=== PATIENT | male | born 1955 | race Caucasian/White ===

== ENCOUNTER 2020-03-12 13:16 | Outpatient (REF) | payer MEDICARE, MEDICAID, SELFPAY ==
[2020-03-12 14:30] LABS: MANUAL DIFF FLAG NO
[2020-03-12 14:40] LABS: Basophils Percent Auto 0.5 % (0-2); Eosinophils Absolute Auto 0.2 X10*3/uL (0.0-0.4); Eosinophils Percent Auto 2.3 % (0-4); Hematocrit 40.2 % (42-52); Hemoglobin 13.9 g/dl (14.0-18.0); Imm Gran Abs Auto 0.02 X10*3/uL (0.00-0.03); Imm Gran Pct Auto 0.3 % (0.0-0.4); Lymphocytes Absolute Auto 2.6 X10*3/uL (1.2-4.9); Lymphocytes Percent Auto 39.5 % (20-40); Mean Corpuscular HGB Conc 34.6 g/dl (31.0-36.0); Mean Corpuscular Hemoglobin 31.2 pg (27.0-33.0); Mean Corpuscular Volume 90.1 fL (80-98); Mean Platelet Volume 10.3 fL (9.4-12.4); Monocytes Absolute Auto 0.4 X10*3/uL (0.1-1.2); Monocytes Percent Auto 6.4 % (2-11); Neutrophils Absolute Auto 3.3 X10*3/uL (2.0-8.3); Platelet Count 166 X10*3/uL (160-400); Red Blood Count 4.46 X10*6/uL (4.60-5.80); Red Cell Distribution Width 12.2 % (11.0-16.0); White Blood Count 6.5 X10*3/uL (4.8-10.8)
[2020-03-12 14:47] LABS: Glucose Urine UA >=1000 MG/DL (NEG); Leukocyte Esterase Urine NEG (NEG); Nitrite Urine NEG (NEG); PH 5.5 (5.0-8.0); Specific Gravity - Urine >= 1.030 (1.005-1.025); Urine Blood 3+ (NEG); Urine Ketones NEG (NEG); Urine Protein NEG (NEG-TRACE)
[2020-03-12 14:58] LABS: Estimated Average Glucose 186 mg/dL; Hemoglobin A1c % 8.1 %
[2020-03-12 15:07] LABS: Appearance Urine HAZY; Color Urine YELLOW
[2020-03-12 15:10] LABS: Alanine Aminotransferase 17 U/L (0-40); Albumin Level 4.3 g/dL (3.5-5.0); Alkaline Phosphatase 71 U/L (39-117); Anion Gap 13 (12-20); Aspartate Amino Transferase 16 U/L (5-37); Bilirubin Total 0.3 mg/dL (0.0-1.0); Blood Urea Nitrogen 13 mg/dL (9-16); Calcium 8.4 mg/dL (8.4-10.2); Carbon Dioxide 24 mmol/L (22-29); Chloride 104 mmol/L (96-108); Estimated Glomerular Filt Rate > 60; Glucose Random 229 mg/dL (60-115); Potassium 4.1 mmol/l (3.3-5.1); Sodium 137 mmol/L (135-145)
[2020-03-12 15:13] LABS: Bacteria Urine 1+ /LPF; Mucus Urine 1+ /LPF; RBC Urine 30-49 /HPF (0); Squamous Epithelial Cell Urine 1+ /LPF
[2020-03-12 15:41] LABS: Microalbum/Creatinine Ratio Ur 29.2 ug/mg cr
== END 2020-03-12 13:17 | disposition home or self-care (01) ==
LOC: HO.LAB 13:16
PROVIDERS: PCP Internal Medicine; Visit Provider Internal Medicine
DX: E11.9 Type 2 diabetes mellitus without complications (principal); R31.9 Hematuria, unspecified; N20.0 Calculus of kidney
CPT/HCPCS: 36415; 80053; 81001; 82043; 83036; 85025

== ENCOUNTER 2020-06-16 08:32 | Outpatient (REF) | payer MEDICARE, MEDICAID, SELFPAY ==
[2020-06-16 09:29] LABS: Estimated Average Glucose 189 mg/dL; Hemoglobin A1c % 8.2 %
[2020-06-16 09:48] LABS: Alanine Aminotransferase 21 U/L (0-40); Albumin Level 4.3 g/dL (3.5-5.0); Alkaline Phosphatase 71 U/L (39-117); Anion Gap 13 (12-20); Bilirubin Total 0.6 mg/dL (0.0-1.0); Blood Urea Nitrogen 19 mg/dL (9-16); Calcium 9.2 mg/dL (8.4-10.2); Carbon Dioxide 28 mmol/L (22-29); Chloride 102 mmol/L (96-108); Estimated Glomerular Filt Rate > 60; Glucose Random 197 mg/dL (60-115); Potassium 5.1 mmol/l (3.3-5.1); Sodium 138 mmol/L (135-145); Total Protein 7.3 g/dL (6.5-8.0)
[2020-06-16 09:49] LABS: Aspartate Amino Transferase 17 U/L (5-37)
[2020-06-16 09:52] LABS: Creatinine Urine 96.48 mg/dL; Microalbum/Creatinine Ratio Ur 36.2 ug/mg cr
== END 2020-06-16 08:33 | disposition home or self-care (01) ==
LOC: HO.LAB 08:32
PROVIDERS: PCP Internal Medicine; Visit Provider Internal Medicine
DX: E11.9 Type 2 diabetes mellitus without complications (principal); E78.00 Pure hypercholesterolemia, unspecified
CPT/HCPCS: 36415; 80053; 82043; 83036

== ENCOUNTER 2020-06-24 | Outpatient (REF) | payer MEDICARE, MEDICAID, SELFPAY | END 2020-06-24 00:01 | disposition home or self-care (01) | LOC: HO.VC | PROVIDERS: Visit Provider Internal Medicine | DX: Z23 Encounter for immunization (principal) | CPT/HCPCS: 0011A ==

== ENCOUNTER 2020-06-30 10:05 | Day surgery (SDC) | payer MEDICARE, MEDICAID, SELFPAY ==
[2020-06-24 13:05] VITALS: BMI 32.6
--- NOTE | 2020-06-29 12:40 | P.CONAN_ITS ---
Documented by User: Cristy Sen 06/29/20 12:41 HPI - Anesthesia Eval Consult details Narrative: 65yo M for Colonoscopy suboxone [facility] Past Medical History Medical History Diabetes Hx of opioid abuse Hx of renal calculi Surgical History Surgical History Hx of cystoscopy Hx of hernia repair Hx of lithotripsy Hx of total knee replacement Social History Social History Smoking Status: Former smoker Substance Use Type: Opiates Substance Use Type Other:: taking suboxone Advance Directives Information Provided: No Meds Allergies Allergy/AdvReac Type Severity Reaction Status Date / Time No Known Allergies Allergy Verified 06/24/20 13:12 [No Known Allergies*] Home Medications Medication Instructions Recorded Confirmed Type buprenorphine-naloxone [Suboxone] 2 strip SUBLINGUAL DAILY 06/24/20 06/24/20 History fluoxetine 2 cap PO DAILY 06/24/20 06/24/20 History metformin 1 tab PO DAILY 06/24/20 06/24/20 History mirtazapine 1 tab PO BEDTIME 06/24/20 06/24/20 History Exam Exam Date and Time: June 29, 2020 1240 Height,Weight and Vital Signs: Height 5 ft 11 in Weight 106.141 kg Pertinent Lab Results Pertinent Lab Results: Laboratory Tests 03/12/20 06/16/20 13:39 08:42 WBC 6.5 Hgb 13.9 L Hct 40.2 L Plt Count 166 Sodium 138 Potassium 5.1 D Chloride 102 Carbon Dioxide 28 BUN 19 H Creatinine 0.85 Assessment and Plan Assessment Anesthesia Assessment: Chart Reviewed Documented by User: Doris Barron 06/30/20 11:08 [facility] Past Medical History Medical History Diabetes Hx of opioid abuse Hx of renal calculi Family History Family history of problems with anesthesia: No Surgical History Surgical History Hx of cystoscopy Hx of hernia repair Hx of lithotripsy Hx of total knee replacement History of Problems with Anesthesia: No Social History Social History Smoking Status: Former smoker Substance Use Type: Opiates Substance Use Type Other:: taking suboxone Advance Directives Information Provided: No Meds Allergies Allergy/AdvReac Type Severity Reaction Status Date / Time No Known Allergies Allergy Verified 06/24/20 13:12 [No Known Allergies*] Home Medications Medication Instructions Recorded Confirmed Type buprenorphine-naloxone [Suboxone] 2 strip SUBLINGUAL DAILY 06/24/20 06/24/20 History fluoxetine 2 cap PO DAILY 06/24/20 06/24/20 History metformin 1 tab PO DAILY 06/24/20 06/24/20 History mirtazapine 1 tab PO BEDTIME 06/24/20 06/24/20 History Exam Height,Weight and Vital Signs: Vital Signs Temp Pulse Resp BP Pulse Ox 06/30/20 10:34 79 16 136/99 H 06/30/20 10:21 96.6 F L 91 16 171/111 H 95 Pertinent Lab Results Pertinent Lab Results: Lab Results 06/30/20 Range/Units 10:24 POC Glucose 178 H (60-115) mg/dL Airway Mallampati Class: II TM Dist: >3cm Neck ROM: Full Loose/Missing/Broken Teeth: Yes (Many missing ?broken) Heart: RRR Lungs: CTAB Assessment and Plan Assessment Anesthesia Assessment: Anesthesia Plan Discussed and Chart Reviewed Final Anesthetic Review NPO: Yes ASA Class: II Final Preanesthetic Review: No Changes in Pt Med Stat, Meds/Allgs Chart Reviewed, Consent Obtained/Reviewed and Anes Risks/Benef Reviewed Patient Risk: Intermediate Procedure Risk: Low Assessment/Block/Sedation in SS: Assess/Block/Sedation-SS Anesthetic Plan Anesthetic Plan: MAC: Disposition: Standard PACU
[2020-06-30 10:21] VITALS: BP 171/111; PULSE 91; RESP 16; TEMP 35.9; O2SAT 95
[2020-06-30 10:29] LABS: Glucose, Whole Blood 178 mg/dL (60-115)
[2020-06-30 10:34] VITALS: BP 136/99; PULSE 79; RESP 16
[2020-06-30] MEDS: Lactated Ringers 1,000 ML 100 ML IVCONT (10:44)
--- NOTE | 2020-06-30 11:43 | MHC.SHP ---
Pre-Procedural Eval Section A The patient is an INPATIENT: No Changes since office visit: No Cold of Flu in the past 2 weeks, No New Medical Problems, No Changes in Medication and No Patient answered all questions The History & Physical has been completed within 30 days and I have reviewed it.: Yes Section B Chief Complaint: screening Allergies: Allergies Allergy/AdvReac Type Severity Reaction Status Date / Time No Known Allergies Allergy Verified 06/24/20 13:12 [No Known Allergies*] Plan I have reviewed the history and physical and performed a pertinent physical examination on my patient. No changes have occurred unless specified.
[2020-06-30 12:15] VITALS: BP 103/60; PULSE 76; RESP 12; TEMP 36.1; O2SAT 96
--- NOTE | 2020-06-30 12:16 | PM.OP ---
Brief Operative Note Date of Service: 06/30/20 Pre-op diagnosis: screening Post-op diagnosis: same (diverticulosis) Procedure: colonoscopy Surgeon: Mani Iglesias Anesthesia: MAC Estimated blood loss (mL): 0 Pathology: none sent Condition: stable Disposition: PACU
[2020-06-30 12:30] VITALS: BP 109/81; PULSE 74; RESP 18; O2SAT 96
--- NOTE | 2020-06-30 13:14 | HO.POSTANES ---
Post Anesthesia Evaluation Post Anesthesia Evaluation Vital Signs: Vital Signs Temp Pulse Resp BP Pulse Ox 06/30/20 12:30 74 18 109/81 96 06/30/20 12:15 97.0 F 76 12 103/60 96 06/30/20 10:34 79 16 136/99 H 06/30/20 10:21 96.6 F L 91 16 171/111 H 95 Anesthesia: Monitored Mental Status: Awake Pain Control: Satisfactory Nausea/Vomiting: None Hydration: Adequate Anesthesia-Related Issues: No Anes. Related Issues
--- NOTE | 2020-06-30 20:10 | OP_ITS ---
SURGEON: Mani Iglesias MD INDICATIONS: Colon cancer screening. PREOPERATIVE DIAGNOSIS: POSTOPERATIVE DIAGNOSIS: PROCEDURE PERFORMED: Colonoscopy to the terminal ileum. ESTIMATED BLOOD LOSS: COMPLICATIONS: ANESTHESIA: ASSISTANTS: SPECIMENS: MEDICATIONS: Monitored anesthesia care. DESCRIPTION OF PROCEDURE: History and physical performed. The risks and benefits of the procedure were explained to the patient. Informed consent was obtained. The patient was placed in the left lateral decubitus position. A digital rectal exam was performed and was found to be normal. The Olympus pediatric video colonoscope was introduced into the rectum and advanced to the cecum without difficulty. The cecum was identified by transillumination, palpation, and identification of the ileocecal valve. Examination was performed. The scope was removed. He tolerated the procedure well, returned to recovery area in stable condition. FINDINGS: The terminal ileum was normal. The visualized colonic mucosa was normal. There was some liquid stool and formed stool limiting the sensitivity examination for detection of small polyps, this was washed and suctioned as best possible. No polyps were identified. There was moderate diverticulosis of the sigmoid with scattered diverticulosis throughout the remainder of the colon. Retroflexed examination showed internal hemorrhoids. IMPRESSION: Diverticulosis. RECOMMENDATION: 1. Follow up as needed. 2. Repeat colonoscopy is recommended in 10 years for average risk individuals. MD MARLENE Rodriguez/BOWEN / [id number]
== END 2020-06-30 12:45 | disposition home or self-care (01) ==
PROVIDERS: PCP Internal Medicine; Visit Provider Internal Medicine Gastroenterology
PROC: 0DJD8ZZ Inspection of Lower Intestinal Tract, Via Natural or Artificial Opening Endoscopic (ICD-10-PCS; CPT 45378; principal; 2020-06-30 11:30)
DX: Z12.11 Encounter for screening for malignant neoplasm of colon (principal); K57.30 Diverticulosis of large intestine without perforation or abscess without bleeding; K64.8 Other hemorrhoids; E11.9 Type 2 diabetes mellitus without complications; Z79.84 Long term (current) use of oral hypoglycemic drugs
CPT/HCPCS: G0121; 82947

== ENCOUNTER 2020-07-22 | Outpatient (REF) | payer MEDICARE, MEDICAID, SELFPAY | END 2020-07-22 00:01 | disposition home or self-care (01) | LOC: HO.VC | PROVIDERS: Visit Provider Internal Medicine | DX: Z23 Encounter for immunization (principal) | CPT/HCPCS: 0012A ==

== ENCOUNTER 2020-09-21 15:30 | Outpatient (REF) | payer MEDICARE, MEDICAID, SELFPAY ==
[2020-09-21 16:19] LABS: MANUAL DIFF FLAG NO
[2020-09-21 16:42] LABS: Creatinine Urine 58.09 mg/dL; Microalbum/Creatinine Ratio Ur 24.1 ug/mg cr
[2020-09-21 16:56] LABS: Basophils Percent Auto 0.6 % (0-2); Eosinophils Absolute Auto 0.2 X10*3/uL (0.0-0.4); Eosinophils Percent Auto 2.1 % (0-4); Hemoglobin 14.9 g/dl (14.0-18.0); Imm Gran Abs Auto 0.01 X10*3/uL (0.00-0.03); Imm Gran Pct Auto 0.1 % (0.0-0.4); Lymphocytes Absolute Auto 2.7 X10*3/uL (1.2-4.9); Lymphocytes Percent Auto 38.3 % (20-40); Mean Corpuscular HGB Conc 33.9 g/dl (31.0-36.0); Mean Corpuscular Hemoglobin 30.6 pg (27.0-33.0); Mean Corpuscular Volume 90.3 fL (80-98); Mean Platelet Volume 10.4 fL (9.4-12.4); Monocytes Absolute Auto 0.4 X10*3/uL (0.1-1.2); Monocytes Percent Auto 5.2 % (2-11); Neutrophils Absolute Auto 3.8 X10*3/uL (2.0-8.3); Neutrophils Percent Auto 53.7 % (45-73); Platelet Count 151 X10*3/uL (160-400); Red Blood Count 4.87 X10*6/uL (4.60-5.80); Red Cell Distribution Width 12.5 % (11.0-16.0)
[2020-09-21 17:01] LABS: Glucose Random 338 mg/dL (60-115)
[2020-09-21 17:05] LABS: Alanine Aminotransferase 25 U/L (0-40); Albumin Level 4.6 g/dL (3.5-5.0); Alkaline Phosphatase 90 U/L (39-117); Anion Gap 14 (12-20); Aspartate Amino Transferase 20 U/L (5-37); Bilirubin Total 0.6 mg/dL (0.0-1.0); Blood Urea Nitrogen 16 mg/dL (9-16); C Reactive Protein 0.26 mg/dL (< or = 0.50); Calcium 9.7 mg/dL (8.4-10.2); Carbon Dioxide 29 mmol/L (22-29); Chloride 100 mmol/L (96-108); Estimated Glomerular Filt Rate > 60; Potassium 5.2 mmol/L (3.3-5.1); Sodium 138 mmol/L (135-145); Total Protein 7.5 g/dL (6.5-8.0)
[2020-09-21 17:08] LABS: Free T4 (Free Thyroxine) 0.97 ng/dL (0.71-1.85); Thyroid Stimulating Hormone 0.66 uIU/mL (0.32-4.0)
[2020-09-21 17:14] LABS: Vitamin B12 451 pg/mL (200-900)
[2020-09-22 04:56] LABS: Estimated Average Glucose 278 mg/dL; Hemoglobin A1c % 11.3 %
== END 2020-09-21 15:31 | disposition home or self-care (01) ==
LOC: HO.LAB 15:30
PROVIDERS: PCP Internal Medicine; Visit Provider Internal Medicine
DX: R53.83 Other fatigue (principal); E11.9 Type 2 diabetes mellitus without complications; E78.00 Pure hypercholesterolemia, unspecified
CPT/HCPCS: 36415; 80053; 82043; 82607; 83036; 84439; 84443; 85025; 86140

== ENCOUNTER → 2020-09-25 08:11 | Outpatient (REF) | payer MEDICARE, MEDICAID, SELFPAY ==
--- NOTE | ~2020-09-25 | NM_ITS ---
Exercise Myocardial perfusion study Indication: Abnormal EKG to evaluate for myocardial ischemia Technique: The patient was brought in for an exercise perfusion study on 09/25/2020. Patient performed exercise as per James protocol and was injected 30 mCi of sestamibi was given intravenously one target HR was achieved. Images were obtained using the SPECT gamma camera interlaced with the gating device. Images were obtained in supine position. Resting perfusion study was performed on 09/28/2020. Patient was administered 30 mCi of sestamibi intravenously at rest. Images were then obtained in supine position. Images obtained with and without CT attenuation. Total DLP 114 mGy-cm. Images were processed with the software and compared side to side in short axis, horizontal long axis and vertical long axis views. Findings: The stress perfusion study showed attenuated corrected images show absent uptake in the apex and moderately reduced uptake in the septum and severely reduced uptake in the distal anterior wall of the LV myocardium. Non attenuated images show severely reduced uptake in the distal anterior, septum, absent uptake in the apex and moderately reduced uptake in the inferior wall of the LV myocardium.. The gated study shows low normal LV systolic function with calculated LVEF of 54%. LV cavity is mildly dilated in size. The gated study shows reduced apical wall thickening and contraction of all segments. There is no transient ischemic dilation. Resting study shows attenuated corrected images show improved uptake in the distal anterior and partially improved uptake in the apex and septum of the LV myocardium.. Gating at rest reveals apical wall motion with ejection fraction at 51%. The findings are consistent with partially reversible septal, apical and distal anterior wall defect suggestive of ischemia possibly severe ischemia.. NM/NM elizabeth perf SPECT rest & str Impression: 1. Ischemia in the mid to distal LAD territory possibly severe 2. Gated LVEF is 54% 3. Transient ischemic dilatation not present Stress EKG is positive for ischemia
--- NOTE | 2020-09-25 08:00 | CA_ITS ---
Acquisition Time: 2020-09-25 08:33:02 Total Exercise Time: 00:07:38 Test Indications: Fatigue Medications: Protocol: MAGDA Max HR: 139 BPM 89% of Pred: 155 BPM Max BP: 164/078 mmHG Max Work Load: 9.5 METS PT EXERCISED ON STD MAGDA PROTOCOL FOR 7:38 INTO STAGE 3. TEST STOPPED FOR FATIGUE AND SOB. MAX HR 139-88%MAX. NO CP. SIGNIFICANT SOB AT PEAK EXERCISE. 2MM ST DEP IN INF/LAT LEADS.CLINICALLY AND ELEC POS. AWAIT SCAN RESULTS. Referred By: Quinten Bullock Overread By: JO-ANN BULLOCK MD
== END ==
LOC: HO.CARD 08:11
PROVIDERS: PCP Internal Medicine; Visit Provider Internal Medicine
DX: R94.31 Abnormal electrocardiogram [ECG] [EKG] (principal); E11.9 Type 2 diabetes mellitus without complications; R53.83 Other fatigue
CPT/HCPCS: 78452; 93017; A9500

== ENCOUNTER 2020-09-30 08:30 | Outpatient (REF) | payer MEDICARE, SELFPAY ==
[2020-09-30 11:08] LABS: INTERNATIONAL NORM RATIO 0.9 (0.9-1.1); Prothrombin Time 10.9 SEC (10.8-13.0)
[2020-09-30 11:12] LABS: Hematocrit 41.1 % (42-52); Hemoglobin 13.9 g/dl (14.0-18.0); Mean Corpuscular HGB Conc 33.8 g/dl (31.0-36.0); Mean Corpuscular Hemoglobin 30.9 pg (27.0-33.0); Mean Corpuscular Volume 91.3 fL (80-98); Mean Platelet Volume 10.4 fL (9.4-12.4); Platelet Count 146 X10*3/uL (160-400); Red Cell Distribution Width 12.8 % (11.0-16.0); White Blood Count 5.6 X10*3/uL (4.8-10.8)
[2020-09-30 11:13] LABS: Anion Gap 13 (12-20); Blood Urea Nitrogen 13 mg/dL (9-16); Calcium 9.5 mg/dL (8.4-10.2); Carbon Dioxide 27 mmol/L (22-29); Chloride 104 mmol/L (96-108); Estimated Glomerular Filt Rate > 60; Glucose Random 317 mg/dL (60-115); Potassium 4.4 mmol/L (3.3-5.1); Sodium 140 mmol/L (135-145)
== END 2020-09-30 08:31 | disposition home or self-care (01) ==
LOC: HO.LAB 08:30
PROVIDERS: PCP Internal Medicine; Referring Provider Internal Medicine; Visit Provider Internal Medicine Cardiovascular Disease
DX: R06.02 Shortness of breath (principal); R94.39 Abnormal result of other cardiovascular function study
CPT/HCPCS: 36415; 80048; 85027; 85610; 93005; 99202

== ENCOUNTER → 2020-10-01 11:31 | Outpatient (REF) | payer MEDICARE, MEDICAID, SELFPAY ==
--- NOTE | 2020-10-01 11:37 | CA_ITS ---
Transthoracic Echocardiogram Patient (Last, First, Middle): Abhay Nelson D Gender: Male Date of : 1955 Age: 65 Procedure Date: 10/01/2020 Procedure Type: Transthoracic Echocardiogram Location: OP Height: 190.5 cm Weight: 102.06 kg BSA: 2.31 m2 Heart Rate: bpm BP: 132 / 80 mmHg Instrumentation Fitter: WILBUR Referring MD: Jassi Warren MD Acid Tester: Jassi Warren MD Symptoms: R06.02 - Shortness of breath Study Quality: Technically Difficult ECG Rhythm: Sinus Conclusions: - 1. Normal LV systolic function with mild LVH with impaired relaxation filling pattern with possible anteroseptal hypokinesis 2. Normal cardiac valvular Doppler 3. No gross pericardial effusion Findings Left Ventricle Normal left ventricular size and systolic function. There is mildly increased left ventricular wall thickness. The visually estimated ejection fraction is between 55-60%. There is no dynamic left ventricular outflow tract obstruction. Spectral Doppler is indicative of an impaired relaxation filling pattern. E/E prime ratio is between 8 and 15 consistent with indeterminate filling pressures. There is mild septal asymmetric hypertrophy. Wall Motion Rest Echo Findings The apical septum and mid anteroseptal segments are hypokinetic. All other scored wall segments showed normal motion. Right Ventricle Normal right ventricular cavity size and systolic function. Atria Both atria are normal in size. There is no evidence of interatrial shunt. Aortic Valve Normal aortic valve structure and function. There is no aortic valve stenosis. There is no aortic valve regurgitation. Mitral Valve Normal mitral valve structure and function. There is trace mitral valve regurgitation. There is no mitral valve stenosis. Pulmonic Valve The pulmonic valve was not well visualized. Tricuspid Valve The tricuspid valve was not well visualized. The right ventricular systolic pressure is not calculated. Great Vessels All visible segments of the aorta are normal in size. The pulmonary artery was not well visualized. Venous The inferior vena cava was not well visualized. Pericardium/Pleural There is no evidence of pericardial effusion. Prior Study Comparison No prior study available for comparison. Measurements M-Mode Liner Measurements Normals - Women/Men AOV Cusps: 2.30 1.5-2.6 cm/m2 2D Linear Measurements IVSd: 1.48 0.6-0.9/0.6-1.0 cm LVIDd: 4.08 3.9-5.3/4.2-5.9 cm LVIDd Index: 0.29 2.4-3.2/2.2-3.1 cm/m2 LVIDs: 2.85 2.0-3.6 cm LVPWd: 1.17 0.7-1.1 cm Ao Root: 3.40 2.1-3.5 cm LA Diam: 4.00 2.7-3.8/3.0-4.0 cm LAIDs Index: 0.28 1.5-2.3 cm/m2 LV Mass: 246.38 67-162/88-224 g LV Mass Index: 17.47 43-95/49-115 g/m2 LVOT Diam: 2.30 3.0+(-)1.3 cm 2D Systolic Function EF 4C: 58.20 >55% EF 2C: 34.70 >55% Mitral Valve MV Pk E: 0.68 MV PK A: 1.08 MV Decel Time: 324.00 E/A: 0.60 E'Lateral: 10.40 E'Medial: 5.11 E/E' Med: 13.30 E/E' Lat: 6.50 PHT: 95.00 MVA PHT: 2.32 Decel O'Brien: 2.10 Aortic Valve AoV Pk Tulio: 1.36 AoV Mn Tulio: 0.95 AoV VTI: 0.30 AoV Pk Grad: 7.00 Aov Mn Grad: 4.00 SAMIRA Cont.VTI: 2.61 LVOT LVOT Pk Tulio: 0.80 LVOT Mn Tulio: 0.62 LVOT VTI: 0.19 LVOT Pk Grad: 3.00 LVOT Mn Grad: 2.00 LVOT Diam: 2.30 LVOT Area: 4.15 Diastolic Function MV Pk E: 0.68 MV Pk A: 1.08 E/A: 0.60 E'Medial: 5.11 E/E' Med: 13.30 E' Laterial: 10.40 E/E' Lat: 6.50 Tricuspid Valve TR Pk Tulio: 2.62 TR Pk Grad: 27.00 Great Vessels Aorta Ao Root-2D: 3.40 2.0-3.7 cm Ao Asc: 3.60 2.1-3.4 cm Ao Arch: 3.10 Pulmonary Valve PV Pk Tulio: 1.44 Peak PV Grad: 8.00 Updated in Other Vendor System with Status of Final Jassi Warren MD electronically signed on 10/02/2020 3:38:17 PM with status of Final
== END ==
LOC: HO.CARD 11:31
PROVIDERS: Visit Provider Internal Medicine
DX: Z13.89 Encounter for screening for other disorder (principal)
CPT/HCPCS: 93306

== ENCOUNTER 2020-10-01 12:17 | Outpatient (REF) | payer MEDICARE, SELFPAY ==
[2020-10-01 12:43] LABS: COVID-19 Test Negative (Negative)
== END 2020-10-01 12:18 | disposition home or self-care (01) ==
LOC: HO.LAB 12:17
PROVIDERS: Visit Provider Internal Medicine
DX: Z20.822 Contact with and (suspected) exposure to COVID-19 (principal)
CPT/HCPCS: 36415; 87635; 93306; C9803

== ENCOUNTER → 2020-10-13 14:47 | Outpatient (BNVA) | payer MEDICARE, MEDICAID, SELFPAY | PROVIDERS: PCP Internal Medicine; Referring Provider Internal Medicine; Visit Provider Internal Medicine Cardiovascular Disease | DX: I25.10 Atherosclerotic heart disease of native coronary artery without angina pectoris (principal); E78.5 Hyperlipidemia, unspecified | CPT/HCPCS: 99212 ==

== ENCOUNTER 2020-10-20 11:50 | Outpatient (REF) | payer MEDICARE, MEDICAID, SELFPAY ==
[2020-10-20 13:20] LABS: Basophils Percent Auto 0.5 % (0-2); Eosinophils Absolute Auto 0.2 X10*3/uL (0.0-0.4); Eosinophils Percent Auto 3.1 % (0-4); Hematocrit 41.8 % (42-52); Hemoglobin 14.2 g/dl (14.0-18.0); Imm Gran Abs Auto 0.02 X10*3/uL (0.00-0.03); Imm Gran Pct Auto 0.3 % (0.0-0.4); Lymphocytes Absolute Auto 2.1 X10*3/uL (1.2-4.9); Lymphocytes Percent Auto 34.1 % (20-40); MANUAL DIFF FLAG NO; Mean Corpuscular Hemoglobin 31.1 pg (27.0-33.0); Mean Corpuscular Volume 91.7 fL (80-98); Mean Platelet Volume 10.2 fL (9.4-12.4); Monocytes Absolute Auto 0.4 X10*3/uL (0.1-1.2); Neutrophils Absolute Auto 3.4 X10*3/uL (2.0-8.3); Platelet Count 149 X10*3/uL (160-400); Red Blood Count 4.56 X10*6/uL (4.60-5.80); Red Cell Distribution Width 12.6 % (11.0-16.0); White Blood Count 6.2 X10*3/uL (4.8-10.8)
[2020-10-20 13:49] LABS: Estimated Average Glucose 246 mg/dL; Hemoglobin A1c % 10.2 %
[2020-10-20 14:02] LABS: Alanine Aminotransferase 18 U/L (0-40); Albumin Level 4.3 g/dL (3.5-5.0); Alkaline Phosphatase 72 U/L (39-117); Anion Gap 12 (12-20); Aspartate Amino Transferase 16 U/L (5-37); Bilirubin Total 0.6 mg/dL (0.0-1.0); Blood Urea Nitrogen 17 mg/dL (9-16); Calcium 9.6 mg/dL (8.4-10.2); Carbon Dioxide 29 mmol/L (22-29); Chloride 104 mmol/L (96-108); Estimated Glomerular Filt Rate > 60; Glucose Random 191 mg/dL (60-115); Potassium 5.3 mmol/L (3.3-5.1); Sodium 140 mmol/L (135-145); Total Protein 7.1 g/dL (6.5-8.0)
[2020-10-20 14:10] LABS: Vitamin D 25-OH Total 42.7 ng/mL (>30)
== END 2020-10-20 11:51 | disposition home or self-care (01) ==
LOC: HO.10HDL 11:50
PROVIDERS: Visit Provider Internal Medicine
DX: E11.9 Type 2 diabetes mellitus without complications (principal); I25.10 Atherosclerotic heart disease of native coronary artery without angina pectoris; E55.9 Vitamin D deficiency, unspecified; Z98.61 Coronary angioplasty status
CPT/HCPCS: 36415; 80053; 82306; 83036; 85025

== ENCOUNTER → 2020-12-08 14:17 | Outpatient (BNVA) | payer MEDICARE, MEDICAID, SELFPAY | PROVIDERS: PCP Internal Medicine; Referring Provider Internal Medicine; Visit Provider Internal Medicine Cardiovascular Disease | DX: I25.10 Atherosclerotic heart disease of native coronary artery without angina pectoris (principal); R06.02 Shortness of breath | CPT/HCPCS: 99212 ==

== ENCOUNTER 2020-12-11 07:28 | Outpatient (REF) | payer MEDICARE, MEDICAID, SELFPAY ==
--- NOTE | 2020-12-11 | PFT_ITS ---
Forced vital capacity is normal. FEV1 is slightly reduced. LVR43-32 moderately reduced and MVV slightly reduced. Post bronchodilator therapy, there is a significant improvement in [id number] and MVV. Total lung capacity is normal. Residual volume is moderately increased. Diffusion capacity is slightly decreased. CONCLUSION: There is evidence of mild obstructive airway disorder and there is slight improvement after bronchodilator therapy. Clinical correlation is recommended. MD MAGDY Bui/BOWEN / [id number]
[2020-12-11 09:02] LABS: Cholesterol 160 mg/dL; HDL Cholesterol 48 mg/dL; LDL Cholesterol Calculated 92 mg/dl; Triglycerides 101 mg/dL
== END 2020-12-11 07:29 | disposition home or self-care (01) ==
LOC: HO.RESP 07:28
PROVIDERS: PCP Internal Medicine; Visit Provider Internal Medicine Cardiovascular Disease
DX: I25.10 Atherosclerotic heart disease of native coronary artery without angina pectoris (principal); R06.02 Shortness of breath
CPT/HCPCS: 36415; 80061; 94060; 94727; 94729

== ENCOUNTER 2021-01-19 09:58 | Outpatient (REF) | payer MEDICARE, SELFPAY ==
--- NOTE | ~2021-01-19 | US_ITS ---
EXAMINATION: US RETROPERITONEAL LIMITED (RENAL ONLY) CLINICAL INFORMATION: Calculus of kidney. COMPARISON: Renal ultrasound 10/22/2019 TECHNIQUE: Real-time imaging of the kidneys. FINDINGS: RIGHT KIDNEY: 12.5 x 6.6 x 5.1 cm (SAG x AP x TRV). The kidney is normal in size, contour, and echogenicity. Renal cortical thickness is normal. No focal parenchymal lesions or hydronephrosis. There is a 0.6 cm calculus in the midpole of the right kidney slightly increased in size since the prior study. There are no other apparent right renal calculi. LEFT KIDNEY: 12.1 x 6.4 x 4.5 cm (SAG x AP x TRV). The kidney is normal in size, contour, and echogenicity. Renal cortical thickness is normal. No hydronephrosis. There is a stable midpole cyst measuring 1.9 cm. There is a 0.5 cm calculus in the upper pole, slightly increased in size. US/US renal BI IMPRESSION: Slight increase in size in a 0.6 cm calculus in the midpole of the right kidney and a 0.5 cm calculus in the upper pole of the left kidney. Stable midpole left renal cyst.
== END 2021-01-19 09:59 | disposition home or self-care (01) ==
LOC: HO.US 09:58
PROVIDERS: Visit Provider Urology
DX: N20.0 Calculus of kidney (principal)
CPT/HCPCS: 76775

== ENCOUNTER → 2021-02-11 09:53 | Outpatient (BNVA) | payer MEDICARE, MEDICAID, SELFPAY | PROVIDERS: PCP Internal Medicine; Visit Provider Urology | DX: N20.0 Calculus of kidney (principal) | CPT/HCPCS: Q3014 ==

== ENCOUNTER 2021-03-12 10:39 | Outpatient (REF) | payer MEDICARE, MEDICAID, SELFPAY ==
--- NOTE | ~2021-03-12 | XR_ITS ---
EXAMINATION: XR ANKLE, RIGHT CLINICAL INFORMATION: 66-year-old male patient with right ankle pain. COMPARISON: None TECHNIQUE: AP, lateral, and mortise views of the right ankle. FINDINGS: The bones and soft tissues are normal. No fracture. Alignment is anatomic. Joint spaces are maintained. No joint effusion. A small plantar calcaneal spur is present. XR/XR ankle RT min 3V IMPRESSION: Normal right ankle.
[2021-03-12 13:44] LABS: Basophils Percent Auto 0.3 % (0-2); Eosinophils Absolute Auto 0.2 X10*3/uL (0.0-0.4); Eosinophils Percent Auto 3.5 % (0-4); Hemoglobin 13.5 g/dl (14.0-18.0); Imm Gran Abs Auto 0.01 X10*3/uL (0.00-0.03); Imm Gran Pct Auto 0.2 % (0.0-0.4); Lymphocytes Absolute Auto 1.9 X10*3/uL (1.2-4.9); Lymphocytes Percent Auto 32.1 % (20-40); MANUAL DIFF FLAG NO; Mean Corpuscular HGB Conc 33.8 g/dl (31.0-36.0); Mean Platelet Volume 10.4 fL (9.4-12.4); Monocytes Absolute Auto 0.4 X10*3/uL (0.1-1.2); Monocytes Percent Auto 6.3 % (2-11); Neutrophils Absolute Auto 3.5 X10*3/uL (2.0-8.3); Neutrophils Percent Auto 57.6 % (45-73); Platelet Count 152 X10*3/uL (160-400); Red Blood Count 4.35 X10*6/uL (4.60-5.80); Red Cell Distribution Width 12.7 % (11.0-16.0)
[2021-03-12 14:11] LABS: Creatinine Urine 65.14 mg/dL; Microalbum/Creatinine Ratio Ur 12.2 ug/mg cr
[2021-03-12 14:12] LABS: Estimated Average Glucose 194 mg/dL; Hemoglobin A1c % 8.4 %
[2021-03-12 14:20] LABS: Alanine Aminotransferase 26 U/L (0-40); Albumin Level 4.2 g/dL (3.5-5.0); Alkaline Phosphatase 83 U/L (39-117); Anion Gap 16 (12-20); Aspartate Amino Transferase 22 U/L (5-37); Bilirubin Total 0.4 mg/dL (0.0-1.0); Blood Urea Nitrogen 14 mg/dL (9-16); Carbon Dioxide 23 mmol/L (22-29); Chloride 105 mmol/L (96-108); Estimated Glomerular Filt Rate > 60; Glucose Random 347 mg/dL (60-115); Potassium 4.7 mmol/L (3.3-5.1); Sodium 139 mmol/L (135-145); Total Protein 7.1 g/dL (6.5-8.0)
== END 2021-03-12 10:40 | disposition home or self-care (01) ==
LOC: HO.10HDL 10:39
PROVIDERS: Visit Provider Internal Medicine
DX: M25.571 Pain in right ankle and joints of right foot (principal); I25.10 Atherosclerotic heart disease of native coronary artery without angina pectoris; E11.9 Type 2 diabetes mellitus without complications; E78.00 Pure hypercholesterolemia, unspecified
CPT/HCPCS: 36415; 73610; 80053; 82043; 83036; 85025

== ENCOUNTER → 2021-04-08 08:16 | Outpatient (BNVA) | payer MEDICARE, MEDICAID, SELFPAY | PROVIDERS: PCP Internal Medicine; Visit Provider Physician Assistant | DX: M19.071 Primary osteoarthritis, right ankle and foot (principal) | CPT/HCPCS: 99202 ==

== ENCOUNTER 2021-05-27 10:00 | Outpatient (RCR) | payer MEDICARE, MEDICAID, SELFPAY ==
[2021-04-22 10:13] VITALS: BP 138/90; PULSE 69
--- NOTE | 2021-04-22 11:01 | MHC.PT.EP ---
[facility] [place] Office [place] Office [place] Office [address] Susie Reece [address] [phone] F: [phone] F: [phone] F: [phone] F: [phone] Physical Therapy Plan of Care Date of Evaluation: Date of Surgery: NA Diagnosis: Primary OA, R ankle and foot Assessment: Abhay is a 66 year old male who is referred to PT for primary OA, R ankle and foot . He reports of having insidious onset of R ankle pain about 2 months back. His pain has gotten worse with time. He denies any trauma or fall. On PT examination pt presented with 8/10 pain in R foot at its worse, TTP over R medial longitudnal arch and medial calcaneal tubercle, decreased ankle ROM, decreased ankle muscle strength, tight gastroc and soleus, impaired posture, and gait. These impairments result in difficulty with ADLS requiring him to be weight bearing. He would benefit from skilled therapy to address the aforementioned impairments and increase tolerance to ADLS. Frequency and Duration: The patient will be seen 2/week for 5 weeks Short Term Goals: 1. Pt will have 50% decrease in pain which will help him sit for long duration without pain in 2 weeks. 2. Pt will have all ankle ROM WNL which will enable him to stand after prolonged sitting or lying without pain in 3 weeks. Industrial Refrigeration Mechanic Goals: 1. Pt will demonstrate an increase in muscle strength by 1 grade which will enable him to walk with a pain of no more than 2/10 in 4 weeks. 2. Pt will be independent with HEPs for symptom management and maintenance following d/c in 5 weeks. Treatment Plan: Modalities to reduce pain, spasms and effusion. Manual therapy to restore motion and function. Therapeutic exercise to improve strength and flexibility. Neuromuscular re-education for posture and balance. Therapeutic activities to return to functional activities of daily living. Electronically signed by: Ambar Bethea PT DPT Please sign and return to therapist. Thank you for your referral.
--- NOTE | 2021-05-27 13:07 | MHC.PT.DC ---
[facility] [place] Office [place] Office [place] Office [address] Susie Reece [address] [phone] F: [phone] F: [phone] F: [phone] F: [phone] Physical Therapy Discharge Report Diagnosis: Primary OA, R ankle and foot Date of Surgery: NA Date of Evaluation: 04/22/21 Date of Discharge: 05/27/21 Treatments to Date: 8 Cancellations to Date: 2 No Shows to Date: 0 Discharge Status: Improved Function Discharge Summary: Abhay arrived stating he was sore today. Per Abhay he has made some improvements with therapy but still has pain. He however states that he is now aware on how to manage his symptoms and requested d/c today. Pt has improved and is independent with HEPs. He was issues updated HEP with addition of toe and hip exercises. He was also recommended to follow up with orthotics. All HEPs reviewed with him. Abhay was d.c from therapy today. Electronically signed by: Ambar Bethea PT DPT Please sign and return to therapist. Thank you for your referral.
== END 2021-05-27 13:07 | disposition home or self-care (01) ==
LOC: HO.PT 10:00
PROVIDERS: PCP Internal Medicine; Visit Provider Orthopaedic Surgery
DX: M19.071 Primary osteoarthritis, right ankle and foot (principal)
CPT/HCPCS: 97033; 97110; 97140; 97161; 97530

== ENCOUNTER → 2021-06-08 09:20 | Outpatient (BNVA) | payer MEDICARE, MEDICAID, SELFPAY | PROVIDERS: PCP Internal Medicine; Referring Provider Internal Medicine; Visit Provider Internal Medicine Cardiovascular Disease ==

== ENCOUNTER → 2021-06-10 14:21 | Outpatient (BNVA) | payer MEDICARE, MEDICAID, SELFPAY | PROVIDERS: PCP Internal Medicine; Referring Provider Internal Medicine; Visit Provider Internal Medicine Cardiovascular Disease | DX: I25.10 Atherosclerotic heart disease of native coronary artery without angina pectoris (principal); E78.5 Hyperlipidemia, unspecified | CPT/HCPCS: 99212 ==

== ENCOUNTER 2021-06-14 10:41 | Outpatient (REF) | payer MEDICARE, MEDICAID, SELFPAY ==
[2021-06-14 11:34] LABS: Cholesterol 119 mg/dL; HDL Cholesterol 36 mg/dL; LDL Cholesterol Calculated 65 mg/dl; Triglycerides 93 mg/dL
== END 2021-06-14 10:42 | disposition home or self-care (01) ==
LOC: HO.LAB 10:41
PROVIDERS: PCP Internal Medicine; Visit Provider Internal Medicine Cardiovascular Disease
DX: I25.10 Atherosclerotic heart disease of native coronary artery without angina pectoris (principal)
CPT/HCPCS: 36415; 80061

== ENCOUNTER 2021-06-15 17:00 | Outpatient (REF) | payer MEDICARE, MEDICAID, SELFPAY ==
--- NOTE | ~2021-06-15 | XR_ITS ---
EXAMINATION: XR FOOT, RIGHT CLINICAL INFORMATION: Evaluate for fracture right heel radiograph from 04/27/2012 COMPARISON: None TECHNIQUE: AP, lateral, and oblique views of the right foot. FINDINGS: No acute visible fracture or dislocation. Mild multi joint degenerative changes greatest at the first metatarsal phalangeal joint and interphalangeal joint. Pes planus. Plantar calcaneal heel spur. Spurring of the dorsal midfoot. Joint spaces and alignment are otherwise maintained. No large ankle joint effusion. Tissues are unremarkable. XR/XR foot RT min 3V IMPRESSION: 1. No acute visible fracture or dislocation. 2. Mild multi joint degenerative changes greatest at the first metatarsal phalangeal joint and interphalangeal joint. 3. Pes planus. 4. Plantar calcaneal heel spur. 5. Spurring of the dorsal midfoot.
[2021-06-15 17:12] LABS: MANUAL DIFF FLAG NO
[2021-06-15 17:18] LABS: Basophils Percent Auto 0.3 % (0-2); Eosinophils Absolute Auto 0.2 X10*3/uL (0.0-0.4); Eosinophils Percent Auto 1.7 % (0-4); Hematocrit 43.8 % (42.0-52.0); Imm Gran Abs Auto 0.02 X10*3/uL (0.00-0.03); Imm Gran Pct Auto 0.2 % (0.0-0.4); Lymphocytes Absolute Auto 4.1 X10*3/uL (1.2-4.9); Lymphocytes Percent Auto 34.3 % (20-40); Mean Corpuscular HGB Conc 34.2 g/dl (31.0-36.0); Mean Corpuscular Hemoglobin 30.6 pg (27.0-33.0); Mean Corpuscular Volume 89.4 fL (80.0-98.0); Mean Platelet Volume 10.1 fL (9.4-12.4); Monocytes Absolute Auto 0.9 X10*3/uL (0.1-1.2); Monocytes Percent Auto 7.4 % (2-11); Neutrophils Absolute Auto 6.6 x10*3/uL (2.0-8.3); Neutrophils Percent Auto 56.1 % (45-73); Platelet Count 180 X10*3/uL (160-400); Red Cell Distribution Width 12.4 % (11.0-16.0); White Blood Count 11.8 X10*3/uL (4.8-10.8)
[2021-06-15 17:33] LABS: Anion Gap 15 (12-20); Blood Urea Nitrogen 17 mg/dL (9-16); Calcium 9.9 mg/dL (8.4-10.2); Carbon Dioxide 26 mmol/L (22-29); Chloride 103 mmol/L (96-108); Estimated Glomerular Filt Rate > 60; Glucose Random 274 mg/dL (60-115); Potassium 4.8 mmol/L (3.3-5.1); Sodium 139 mmol/L (135-145); Uric Acid 3.9 mg/dL (3.4-7.0)
[2021-06-15 17:53] LABS: Estimated Average Glucose 237 mg/dL; Hemoglobin A1c % 9.9 %
== END 2021-06-15 17:01 | disposition home or self-care (01) ==
LOC: HO.XRAY 17:00
PROVIDERS: PCP Internal Medicine; Visit Provider Internal Medicine
DX: M79.671 Pain in right foot (principal); E11.9 Type 2 diabetes mellitus without complications
CPT/HCPCS: 36415; 73630; 80048; 83036; 84550; 85025; 86140

== ENCOUNTER 2021-06-30 14:44 | Outpatient (REF) | payer MEDICARE, MEDICAID, SELFPAY ==
--- NOTE | ~2021-06-30 | US_ITS ---
EXAMINATION: US RETROPERITONEAL LIMITED (RENAL ONLY) CLINICAL INFORMATION: Calculus of kidney. COMPARISON: Renal ultrasound 01/19/2021 TECHNIQUE: Real-time imaging of the kidneys. FINDINGS: RIGHT KIDNEY: 11.3 x 6.34 x 6.10 cm (SAG x AP x TRV). The kidney is normal in size, contour, and echogenicity. Renal cortical thickness is normal. There are 3 echogenic densities measuring 3 mm suggestive of small stones. No focal parenchymal lesions or hydronephrosis. LEFT KIDNEY: 11.8 x 6.04 x 6.57 cm (SAG x AP x TRV). The kidney is normal in size, contour, and echogenicity. Renal cortical thickness is normal. There are 2 small echogenic densities suggestive of stones measuring 2 mm. There is a 1.8 cm cyst in the midpole. No hydronephrosis. US/US renal BI IMPRESSION: Small bilateral renal stones. Small left renal cyst.
== END 2021-06-30 14:45 | disposition home or self-care (01) ==
LOC: HO.US 14:44
PROVIDERS: PCP Internal Medicine; Visit Provider Urology
DX: N20.0 Calculus of kidney (principal)
CPT/HCPCS: 76775

== ENCOUNTER → 2021-08-20 08:12 | Outpatient (BNVA) | payer MEDICARE, MEDICAID, SELFPAY | PROVIDERS: PCP Internal Medicine; Visit Provider Urology | DX: Z13.89 Encounter for screening for other disorder (principal) | CPT/HCPCS: Q3014 ==

== ENCOUNTER → 2021-12-09 14:18 | Outpatient (BNVA) | payer MEDICARE, MEDICAID, SELFPAY | PROVIDERS: PCP Internal Medicine; Referring Provider Internal Medicine; Visit Provider Internal Medicine Cardiovascular Disease | DX: I25.10 Atherosclerotic heart disease of native coronary artery without angina pectoris (principal); Z79.82 Long term (current) use of aspirin; Z79.899 Other long term (current) drug therapy | CPT/HCPCS: 99212 ==

== ENCOUNTER 2022-02-04 07:36 | Outpatient (REF) | payer MEDICARE, MEDICAID, SELFPAY ==
--- NOTE | ~2022-02-04 | US_ITS ---
EXAMINATION: US RETROPERITONEAL LIMITED (RENAL ONLY) CLINICAL INFORMATION: Renal calculus. COMPARISON: 06/30/2021 TECHNIQUE: 01/19/2021 FINDINGS: RIGHT KIDNEY: 10.9 x 6.3 x 6 cm (SAG x AP x TRV). The kidney has normal cortical thickness and cortical echotexture. No renal mass. A few calyceal stones are detected, and these measure up to approximately 0.4 cm in the mid to upper pole, 0.3 cm and 0.5 cm in the interpolar area. No hydronephrosis. LEFT KIDNEY: 11.6 x 6.7 x 6.2 cm (SAG x AP x TRV). The kidney has normal cortical thickness and echotexture. No solid renal mass. 2.1 cm simple cyst of the upper pole. No renal imaging follow-up is recommended for a simple cyst. Again noted is a calyceal stone in the upper pole that measures approximately 0.6 cm maximum dimension. Also, there are calyceal stones in the interpolar area that measure up to 0.5 cm and 0.6 cm maximum dimension. No hydronephrosis. US/US renal BI IMPRESSION: * Again noted are bilateral renal calculi without hydronephrosis. * 2.1 cm simple cyst of the left kidney. No renal imaging follow-up is recommended for simple cysts..
== END 2022-02-04 07:37 | disposition home or self-care (01) ==
LOC: HO.US 07:36
PROVIDERS: PCP Internal Medicine; Visit Provider Urology
DX: N20.0 Calculus of kidney (principal)
CPT/HCPCS: 76775

== ENCOUNTER 2022-02-14 11:40 | Outpatient (REF) | payer MEDICARE, MEDICAID, SELFPAY ==
[2022-02-14 12:04] LABS: MANUAL DIFF FLAG NO
[2022-02-14 12:41] LABS: Basophils Percent Auto 0.5 % (0-2); Eosinophils Absolute Auto 0.1 X10*3/uL (0.0-0.4); Eosinophils Percent Auto 1.8 % (0-4); Hematocrit 37.3 % (42.0-52.0); Hemoglobin 13.1 g/dl (14.0-18.0); Imm Gran Abs Auto 0.02 X10*3/uL (0.00-0.03); Imm Gran Pct Auto 0.3 % (0.0-0.4); Lymphocytes Absolute Auto 2.3 X10*3/uL (1.2-4.9); Lymphocytes Percent Auto 38.4 % (20-40); Mean Corpuscular HGB Conc 35.1 g/dl (31.0-36.0); Mean Corpuscular Hemoglobin 31.6 pg (27.0-33.0); Mean Corpuscular Volume 90.1 fL (80.0-98.0); Mean Platelet Volume 10.1 fL (9.4-12.4); Monocytes Absolute Auto 0.4 X10*3/uL (0.1-1.2); Monocytes Percent Auto 6.8 % (2-11); Neutrophils Absolute Auto 3.2 x10*3/uL (2.0-8.3); Neutrophils Percent Auto 52.2 % (45-73); Platelet Count 186 X10*3/uL (160-400); Red Blood Count 4.14 X10*6/uL (4.60-5.80); Red Cell Distribution Width 12.7 % (11.0-16.0)
[2022-02-14 12:59] LABS: Estimated Average Glucose 229 mg/dL; Hemoglobin A1c % 9.6 %
[2022-02-14 13:15] LABS: Alanine Aminotransferase 33 U/L (0-40); Albumin Level 4.2 g/dL (3.5-5.0); Alkaline Phosphatase 69 U/L (39-117); Anion Gap 17 (12-20); Aspartate Amino Transferase 24 U/L (5-37); Bilirubin Total 0.8 mg/dL (0.0-1.0); Blood Urea Nitrogen 17 mg/dL (9-16); C Reactive Protein 0.39 mg/dL (< or = 0.50); Calcium 9.4 mg/dL (8.4-10.2); Carbon Dioxide 26 mmol/L (22-29); Chloride 101 mmol/L (96-108); Estimated Glomerular Filt Rate > 60; Glucose Random 340 mg/dL (60-115); Potassium 4.7 mmol/L (3.3-5.1); Sodium 139 mmol/L (135-145)
[2022-02-14 13:28] LABS: Prostate Specific Antigen 0.94 ng/mL (<0.05-4.0)
[2022-02-14 14:06] LABS: Appearance Urine Clear; Color Urine Yellow; Glucose Urine UA >=1000 mg/dL (Negative); Leukocyte Esterase Urine Negative (Negative); Nitrite Urine Negative (Negative); PH 5.5 (5.0-9.0); Specific Gravity - Urine >= 1.030 (1.005-1.025); UMIC TRIGGER UACC YES; Urine Blood Negative (Negative); Urine Ketones Negative (Negative); Urine Protein Negative (Neg-Trace)
[2022-02-14 14:10] LABS: Bacteria Urine None Seen (None Seen); Hyaline Casts Urine 0-2 /LPF (0-2); RBC Urine 0-2 /HPF (0-2); Squamous Epithelial Cell Urine 0-2 /HPF (0-2); WBC Urine 0-5 /HPF (0-5)
== END 2022-02-14 11:41 | disposition home or self-care (01) ==
LOC: HO.LAB 11:40
PROVIDERS: Urology; PCP Internal Medicine; Visit Provider Internal Medicine
DX: Z12.5 Encounter for screening for malignant neoplasm of prostate (principal); N13.8 Other obstructive and reflux uropathy; N40.1 Benign prostatic hyperplasia with lower urinary tract symptoms; R11.2 Nausea with vomiting, unspecified; N20.0 Calculus of kidney; E11.9 Type 2 diabetes mellitus without complications; I25.10 Atherosclerotic heart disease of native coronary artery without angina pectoris
CPT/HCPCS: 36415; 80053; 81001; 81003; 82550; 83036; 84153; 85025; 86140; 87086

== ENCOUNTER → 2022-02-22 09:36 | Outpatient (BNVA) | payer MEDICARE, MEDICAID, SELFPAY | PROVIDERS: PCP Internal Medicine; Visit Provider Urology | DX: N20.0 Calculus of kidney (principal) | CPT/HCPCS: Q3014 ==

== ENCOUNTER 2022-05-10 10:32 | Outpatient (REF) | payer MEDICARE, MEDICAID, SELFPAY ==
[2022-05-10 10:48] LABS: MANUAL DIFF FLAG NO
[2022-05-10 10:57] LABS: Basophils Percent Auto 0.5 % (0-2); Eosinophils Absolute Auto 0.3 X10*3/uL (0.0-0.4); Hematocrit 40.9 % (42.0-52.0); Imm Gran Abs Auto 0.01 X10*3/uL (0.00-0.03); Imm Gran Pct Auto 0.2 % (0.0-0.4); Lymphocytes Absolute Auto 2.7 X10*3/uL (1.2-4.9); Mean Corpuscular HGB Conc 34.2 g/dl (31.0-36.0); Mean Corpuscular Hemoglobin 30.6 pg (27.0-33.0); Mean Corpuscular Volume 89.5 fL (80.0-98.0); Mean Platelet Volume 10.5 fL (9.4-12.4); Monocytes Absolute Auto 0.6 X10*3/uL (0.1-1.2); Monocytes Percent Auto 9.3 % (2-11); Neutrophils Absolute Auto 2.9 x10*3/uL (2.0-8.3); Platelet Count 157 X10*3/uL (160-400); Red Blood Count 4.57 X10*6/uL (4.60-5.80); Red Cell Distribution Width 12.3 % (11.0-16.0); White Blood Count 6.5 X10*3/uL (4.8-10.8)
[2022-05-10 11:46] LABS: Alanine Aminotransferase 34 U/L (0-40); Albumin Level 4.3 g/dL (3.5-5.0); Alkaline Phosphatase 68 U/L (39-117); Anion Gap 12 (12-20); Aspartate Amino Transferase 30 U/L (5-37); Blood Urea Nitrogen 19 mg/dL (9-16); Calcium 9.1 mg/dL (8.4-10.2); Carbon Dioxide 27 mmol/L (22-29); Chloride 102 mmol/L (96-108); Estimated Glomerular Filt Rate > 60; Glucose Random 210 mg/dL (60-115); Iron 77 mcg/dL (45-160); Percent Iron Saturation 26 % (15-50); Potassium 4.2 mmol/L (3.3-5.1); Sodium 137 mmol/L (135-145); Total Iron Binding Capacity 301 mcg/dL (228-428); Total Protein 7.1 g/dL (6.5-8.0); Unsaturated Iron Binding 224 ug/dL
[2022-05-10 12:47] LABS: Bilirubin Total 0.7 mg/dL (0.0-1.0)
[2022-05-10 14:17] LABS: Estimated Average Glucose 246 mg/dL; Hemoglobin A1c % 10.2 %
== END 2022-05-10 10:33 | disposition home or self-care (01) ==
LOC: HO.LAB 10:32
PROVIDERS: PCP Internal Medicine; Visit Provider Internal Medicine
DX: D64.9 Anemia, unspecified (principal); I10 Essential (primary) hypertension; I25.10 Atherosclerotic heart disease of native coronary artery without angina pectoris; E11.9 Type 2 diabetes mellitus without complications
CPT/HCPCS: 36415; 80053; 83036; 83540; 85025

== ENCOUNTER → 2022-07-15 14:58 | Outpatient (BNVA) | payer MEDICARE, MEDICAID, SELFPAY | PROVIDERS: PCP Internal Medicine; Visit Provider Internal Medicine Endocrinology, Diabetes & Metabolism | DX: E11.9 Type 2 diabetes mellitus without complications (principal); Z79.84 Long term (current) use of oral hypoglycemic drugs | CPT/HCPCS: 82947; 99202 ==

== ENCOUNTER 2022-07-18 08:50 | Outpatient (REF) | payer MEDICARE, MEDICAID, SELFPAY ==
[2022-07-18 10:05] LABS: Cholesterol 126 mg/dL; HDL Cholesterol 45 mg/dL; LDL Cholesterol Calculated 69 mg/dl; Triglycerides 63 mg/dL
[2022-07-18 13:13] LABS: Creatinine Urine 109.54 mg/dL; Microalbum/Creatinine Ratio Ur 17.3 ug/mg cr
[2022-07-24 10:33] LABS: Glutamic acid decarboxylase Ab <5 IU/mL (<5)
== END 2022-07-18 08:51 | disposition home or self-care (01) ==
LOC: HO.LAB 08:50
PROVIDERS: PCP Internal Medicine; Visit Provider Internal Medicine Endocrinology, Diabetes & Metabolism
DX: E11.9 Type 2 diabetes mellitus without complications (principal)
CPT/HCPCS: 36415; 80061; 82043; 86341

== ENCOUNTER → 2022-08-25 10:40 | Outpatient (BNVA) | payer MEDICARE, MEDICAID, SELFPAY | PROVIDERS: PCP Internal Medicine; Visit Provider Dietitian, Registered | DX: E11.9 Type 2 diabetes mellitus without complications (principal) | CPT/HCPCS: 97802 ==

== ENCOUNTER 2022-11-03 10:30 | Outpatient (REF) | payer MEDICARE, MEDICAID, SELFPAY ==
[2022-11-03 10:41] LABS: MANUAL DIFF FLAG NO
[2022-11-03 11:07] LABS: Basophils Percent Auto 0.3 % (0-2); Eosinophils Absolute Auto 0.3 X10*3/uL (0.0-0.4); Eosinophils Percent Auto 3.2 % (0-4); Hematocrit 40.1 % (42.0-52.0); Hemoglobin 13.6 g/dl (14.0-18.0); Imm Gran Abs Auto 0.02 X10*3/uL (0.00-0.03); Imm Gran Pct Auto 0.2 % (0.0-0.4); Lymphocytes Percent Auto 45.6 % (20-40); Mean Corpuscular HGB Conc 33.9 g/dl (31.0-36.0); Mean Corpuscular Hemoglobin 31.3 pg (27.0-33.0); Mean Corpuscular Volume 92.2 fL (80.0-98.0); Mean Platelet Volume 10.1 fL (9.4-12.4); Monocytes Absolute Auto 0.7 X10*3/uL (0.1-1.2); Monocytes Percent Auto 7.9 % (2-11); Neutrophils Absolute Auto 3.8 x10*3/uL (2.0-8.3); Neutrophils Percent Auto 42.8 % (45-73); Platelet Count 170 X10*3/uL (160-400); Red Blood Count 4.35 X10*6/uL (4.60-5.80); White Blood Count 8.8 X10*3/uL (4.8-10.8)
[2022-11-03 11:33] LABS: Estimated Average Glucose 189 mg/dL; Hemoglobin A1c % 8.2 %
[2022-11-03 11:42] LABS: Alanine Aminotransferase 30 U/L (0-40); Albumin Level 4.3 g/dL (3.5-5.0); Alkaline Phosphatase 62 U/L (39-117); Anion Gap 17 (12-20); Aspartate Amino Transferase 31 U/L (5-37); Bilirubin Total 0.7 mg/dL (0.0-1.0); Blood Urea Nitrogen 16 mg/dL (9-16); Calcium 9.2 mg/dL (8.4-10.2); Carbon Dioxide 27 mmol/L (22-29); Chloride 102 mmol/L (96-108); Cholesterol 131 mg/dL; Estimated Glomerular Filt Rate > 60; Glucose Random 113 mg/dL (60-115); HDL Cholesterol 41 mg/dL; LDL Cholesterol Calculated 66 mg/dl; Potassium 3.8 mmol/L (3.3-5.1); Sodium 142 mmol/L (135-145); Total Protein 7.4 g/dL (6.5-8.0); Triglycerides 122 mg/dL
[2022-11-03 12:05] LABS: Creatinine Urine 85.12 mg/dL; Microalbum/Creatinine Ratio Ur 12.9 ug/mg cr
== END 2022-11-03 10:31 | disposition home or self-care (01) ==
LOC: HO.LAB 10:30
PROVIDERS: PCP Internal Medicine; Visit Provider Internal Medicine
DX: E78.00 Pure hypercholesterolemia, unspecified (principal); E11.9 Type 2 diabetes mellitus without complications
CPT/HCPCS: 36415; 80053; 80061; 82043; 83036; 85025

== ENCOUNTER 2022-12-08 13:21 | Outpatient (AMB) | payer MEDICARE, MEDICAID, SELFPAY ==
[2022-12-08 13:27] VITALS: BP 120/80; PULSE 74; BMI 30.2
--- NOTE | 2022-12-08 13:27 | MHC.OFFVIS ---
Intake Vital Signs 12/08/22 13:27 Height 6 ft Weight 222 lb 10.67 oz BMI 30.2 BP 120/80 Blood Pressure Location Lt brachial Position Sitting Pulse 74 Intake Visit Reasons: 1 yr f/up Intake Note: 1 year follow-up with ekg feeling good [employer] Required: No Allergies No Known Allergies [No Known Allergies*] Allergy (Verified 07/15/22 15:15) Medication List - Last Reconciled 12/08/22 by Jassi Warren MD allopurinol 100 mg PO DAILY 90 days aspirin 81 mg PO DAILY 90 days atorvastatin 40 mg PO DAILY 90 days blood sugar diagnostic (FreeStyle Lite Strips) As directed checks 1 X/day blood-glucose meter (FreeStyle Lite Meter kit) As directed for blood sugar checks 1 X/day buprenorphine-naloxone 8-2 mg (Suboxone) 2 strips sublingual DAILY ezetimibe 10 mg PO DAILY 90 days fluoxetine 40 mg PO DAILY glipizide 5 mg PO BID metformin ER 1,000 mg PO BID metoprolol succinate ER 25 mg PO DAILY 90 days pyridoxine (vitamin B6) 100 mg PO DAILY 90 days HPI HPI Comments History of Present Illness Details Abhay comes for follow-up. From cardiac perspective he has been doing well. He has not been exercising regularly. However with regular physical activity denies any exertional chest pain shortness of breath. He had 1 time when he had pressure under his armpit on the left side but this was not exertion related. Since then he has had no recurrent symptoms. Denies any heart failure symptoms. Most recent LDL well controlled at 66. Denies palpitations irregular heartbeat or lightheadedness, syncope. [facility] Medical History CAD (coronary artery disease) Diabetes mellitus HTN (hypertension) Hx of opioid abuse Hx of renal calculi Hyperlipidemia Primary osteoarthritis of left knee Primary osteoarthritis of right knee Retained ureteral stent Ureteral stone with hydronephrosis Surgical History Hx of cystoscopy Hx of hernia repair Hx of lithotripsy Hx of total knee replacement S/P knee replacement Stented coronary artery Family History Father No problems noted. Mother No problems noted. 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 Review of Systems Const Denies chills, Denies fatigue, Denies fever(s), Denies frequent falls, Denies weakness, Denies weight gain and Denies weight loss ENT Denies dizziness Card Denies chest pain, Denies leg edema, Denies lightheadedness, Denies palpitations, Denies dyspnea, Denies dyspnea on exertion, Denies orthopnea and Denies other (loss of consciousness) Resp Denies cough, Denies dyspnea and Denies dyspnea on exertion GI Denies hematochezia and Denies change in stool character Musc Denies abnormal gait, Denies muscle weakness, Denies numbness, Denies radiating pain into limb and Denies tingling Neuro Denies abnormal gait, Denies dizziness, Denies frequent falls, Denies numbness, Denies tingling and Denies weakness Endo Denies fatigue and Denies palpitations Physical Exam Vital Signs: Last Vital Signs Pulse 74 12/08/22 13:27 BP 120/80 12/08/22 13:27 BMI result Body Mass Index 30.2 Const General: cooperative, comfortable, no acute distress, alert and awake Nutritional Appearance: obese Orientation/consciousness: patient oriented x3 Limitations: no limitations Neck Neck: Yes trachea midline, Yes supple and Yes no JVD Resp Effort & Inspection: normal respiratory effort Auscultation: clear to auscultation bilaterally and diminished lung sounds Cardio Jugular venous distension: no JVD Palpation: normal PMI Rate: regular rate Rhythm: regular rhythm Heart sounds: S1 normal heart sound present, S2 normal heart sound present, no click, no gallops, no murmurs and no rubs GI Auscultation: normal bowel sounds Skin General skin exam: no rashes or lesions noted Neuro General: patient oriented x3 and no focal motor deficits Extrem General: Yes no clubbing, cyanosis or edema Office Procedures EKG Details: EKG shows normal sinus rhythm with moderate voltage criteria for LVH otherwise normal EKG [id number], Complete Assessment & Plan Assessment & Plan (1) CAD (coronary artery disease): Code(s): I25.10 - Atherosclerotic heart disease of [place] coronary artery without angina pectoris Plan: CAD with drug-eluting stent to LAD without any recurrent symptoms suggestive angina. He is currently well risk optimized. Continue low-dose aspirin therapy for life. Pathophysiology of coronary artery was discussed again. Blood pressure is currently well optimized. Advised to monitor blood pressure at home maintain a log. Target goal blood pressure less than 130/84. LDL is extremely well optimized on dual therapy. Continue aggressive control of diabetes goal hemoglobin A1c less than 7%. Advised to participate in regular physical activity as per aha recommendations. Participate in weight loss program. Follow up in the clinic 1 year's time, sooner p.r.n.. Thank you for allowing me to partake in his care Coding Level of Care Code Est Pt Level 4 (41941) Diagnoses CAD (coronary artery disease) I25.10 CPT Codes EKG - CPT: 33566-[id number], Complete ([id number])
== END 2022-12-08 13:51 | disposition home or self-care (01) ==
PROVIDERS: Visit Provider Internal Medicine Cardiovascular Disease
DX: I25.10 Atherosclerotic heart disease of native coronary artery without angina pectoris (principal)
CPT/HCPCS: 93010; 99214

== ENCOUNTER → 2022-12-08 13:21 | Outpatient (BNVA) | payer MEDICARE, MEDICAID, SELFPAY | PROVIDERS: Visit Provider Internal Medicine Cardiovascular Disease | DX: I25.10 Atherosclerotic heart disease of native coronary artery without angina pectoris (principal) | CPT/HCPCS: 93005; 99212 ==

== ENCOUNTER 2023-02-10 12:41 | Outpatient (REF) | payer MEDICARE, MEDICAID, SELFPAY ==
--- NOTE | ~2023-02-10 | US_ITS ---
EXAMINATION: US RETROPERITONEAL LIMITED (RENAL ONLY) CLINICAL INFORMATION: Calculus of kidney. COMPARISON: Ultrasound retroperitoneal limited (renal only) 02/04/2022 and 06/30/2021. CT abdomen and pelvis without contrast 03/12/2018. TECHNIQUE: Real-time imaging of the kidneys. FINDINGS: RIGHT KIDNEY: 11.2 x 6.2 x 6.5 cm (SAG x AP x TRV). The kidney is normal in size, contour, and echogenicity. Renal cortical thickness is normal. No focal parenchymal lesions or hydronephrosis. 5 mm nonobstructing calculus in the mid kidney. 6 mm nonobstructing calculus in the mid kidney. LEFT KIDNEY: 12.0 x 5.9 x 5.7 cm (SAG x AP x TRV). The kidney is normal in size, contour, and echogenicity. Renal cortical thickness is normal. No hydronephrosis. 1.9 cm simple cyst in the upper pole. No follow-up imaging is recommended. 7 mm nonobstructing calculus in the upper pole. 5 mm nonobstructing calculus in the upper pole. 6 mm nonobstructing calculus in the mid kidney. US/US renal BI IMPRESSION: Nonobstructing bilateral renal calculi. No hydronephrosis.
== END 2023-02-10 12:42 | disposition home or self-care (01) ==
LOC: HO.US 12:41
PROVIDERS: PCP Internal Medicine; Visit Provider Urology
DX: N20.0 Calculus of kidney (principal)
CPT/HCPCS: 76775

== ENCOUNTER 2023-02-21 08:25 | Outpatient (AMB) | payer MEDICARE, MEDICAID, SELFPAY ==
--- NOTE | 2023-02-21 08:33 | MHC.OFFVIS ---
Intake Intake Visit Reasons: 1Y US(set) Intake Note: Patient is Present for Follow Up Ultrasound Urology Medication: Vitamin B6, Allopurinol Antibiotic Allergies:None Blood Thinners: Aspirin Pharmacy: [facility] Allergies No Known Allergies [No Known Allergies*] Allergy (Verified 02/21/23 08:34) HPI HPI Comments History of Present Illness Details Abhay is a pleasant male. He is a patient of [facility]. He is seen for the following urologic conditions. - nephrolithiasis Small stones seen bilaterally on imaging Has been on vitamin B6 Trying to maintain fluid intake Willing to try potassium citrate Six month follow-up imaging Nephrolithiasis Longstanding - states he passed 2 stones from the right side during December Prior intervention for distal ureteric stone Current therapy includes vitamin B6 Imaging - 01/09 renal ultrasound bilateral 5 mm stones - 08/10 renal ultrasound bilateral small stones - 02/10 renal ultrasound bilateral mm stones - 02/11 renal ultrasound bilateral 5 mm stones Concurrent diagnoses diabetes uncontrolled Continue surveillance imaging [facility] Medical History HTN (hypertension) Retained ureteral stent Ureteral stone with hydronephrosis Primary osteoarthritis of right knee Primary osteoarthritis of left knee CAD (coronary artery disease) Hyperlipidemia Diabetes mellitus Hx of renal calculi Hx of opioid abuse Surgical History S/P knee replacement Stented coronary artery Hx of total knee replacement Hx of hernia repair Hx of lithotripsy Hx of cystoscopy Family History Father No problems noted. Mother No problems noted. 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 Review of Systems Const Denies chills and Denies fever(s) Card Reports no additional complaints and Denies syncope Resp Denies cough GI Denies abdominal pain and Denies heartburn Reports as per HPI and Denies change in libido Neuro Denies syncope Psych Denies change in libido Endo Denies change in libido Physical Exam Const General: cooperative, healthy appearing, comfortable and no acute distress Orientation/consciousness: patient oriented x3 HEENT Face and sinus: Yes normal facial exam Mouth: moist mucous membranes Neck Neck: Yes normal visual inspection, Yes full ROM and Yes trachea midline Chest Chest palpation & inspection: normal inspection of the chest Resp Effort & Inspection: normal respiratory effort, able to speak in complete sentences and no respiratory distress GI Inspection: Yes normal to inspection Back/Spine/Pelvis Cervical Spine: normal cervical lordosis Thoracic/Lumbar Spine: thoracic and lumbar spine normal to inspection Skin General skin exam: no rashes or lesions noted Neuro General: patient oriented x3, gait normal, tone normal and moves all extremities Extrem General: Yes normal to inspection and Yes capillary refill normal Assessment & Plan Assessment & Plan (1) Diabetes mellitus: Code(s): E11.9 - Type 2 diabetes mellitus without complications Qualifiers: Diabetes mellitus type: type 2 Diabetes mellitus complication status: with hyperglycemia (2) Nephrolithiasis: Code(s): N20.0 - Calculus of kidney Plan Trial potassium citrate Orders: Orders US renal BI 6 Months N20.0 - Calculus of kidney Medications: New potassium citrate ER 20 mEq (2 x 10 mEq (1,080 mg)) PO BID 360 tabs 1RF 90 days N20.0 - Calculus of kidney pyridoxine (vitamin B6) 50 mg PO DAILY 90 tabs 1RF 90 days N20.0 - Calculus of kidney Patient Instructions: Imaging studies, laboratory and physical exam results were discussed and reviewed in detail. No major barriers to patient understanding were identified. An opportunity to ask questions regarding the treatment plan was provided. All questions were answered. The patient expressed understanding and agreement with the above treatment plan. The patient is aware they should contact our office by phone for worsening of their current condition or the appearance of new urologic symptoms. Compliance is encouraged with any medications and followup testing that is ordered. It is a privilege to participate in the urologic care of your patient. If you have any questions or concerns regarding treatment for the above conditions, or other urologic issues, please do not hesitate to contact me. The office telephone contact is [phone]. This note is constructed using voice recognition software. While every effort has been made to ensure accuracy rn access errors may have been included. Yours sincerely, Dr Joesph Subramanian MD, [facility] - Urology Providers of Expert, Compassionate Care for the Genitourinary System Coding Level of Care Code Est Pt Level 4 (16093) Diagnoses Diabetes mellitus E11.9 Diabetes mellitus type: type 2 Diabetes mellitus complication status: with hyperglycemia Nephrolithiasis N20.0
== END 2023-02-21 08:57 | disposition home or self-care (01) ==
PROVIDERS: PCP Internal Medicine; Visit Provider Urology
DX: E11.9 Type 2 diabetes mellitus without complications (principal); N20.0 Calculus of kidney
CPT/HCPCS: 99214

== ENCOUNTER → 2023-02-21 08:25 | Outpatient (BNVA) | payer MEDICARE, MEDICAID, SELFPAY | PROVIDERS: Visit Provider Urology | DX: N20.0 Calculus of kidney (principal); E11.9 Type 2 diabetes mellitus without complications | CPT/HCPCS: 99212 ==

== ENCOUNTER 2023-05-29 14:46 | Outpatient (REF) | payer MEDICARE, MEDICAID, SELFPAY ==
[2023-05-29 15:05] LABS: MANUAL DIFF FLAG NO
[2023-05-29 15:15] LABS: Basophils Percent Auto 0.5 % (0-2); Eosinophils Absolute Auto 0.1 X10*3/uL (0.0-0.4); Eosinophils Percent Auto 1.7 % (0-4); Hematocrit 38.6 % (42.0-52.0); Hemoglobin 13.4 g/dl (14.0-18.0); Imm Gran Abs Auto 0.02 X10*3/uL (0.00-0.03); Imm Gran Pct Auto 0.3 % (0.0-0.4); Lymphocytes Absolute Auto 2.4 X10*3/uL (1.2-4.9); Lymphocytes Percent Auto 35.7 % (20-40); Mean Corpuscular HGB Conc 34.7 g/dl (31.0-36.0); Mean Corpuscular Hemoglobin 30.9 pg (27.0-33.0); Mean Corpuscular Volume 89.1 fL (80.0-98.0); Mean Platelet Volume 10.1 fL (9.4-12.4); Monocytes Absolute Auto 0.5 X10*3/uL (0.1-1.2); Monocytes Percent Auto 7.4 % (2-11); Neutrophils Absolute Auto 3.6 x10*3/uL (2.0-8.3); Neutrophils Percent Auto 54.4 % (45-73); Platelet Count 152 X10*3/uL (160-400); Red Blood Count 4.33 X10*6/uL (4.60-5.80); Red Cell Distribution Width 12.7 % (11.0-16.0); White Blood Count 6.6 X10*3/uL (4.8-10.8)
[2023-05-29 15:24] LABS: Estimated Average Glucose 226 mg/dL; Hemoglobin A1c % 9.5 % (<6.0)
[2023-05-29 15:36] LABS: Alanine Aminotransferase 29 U/L (0-40); Albumin Level 4.3 g/dL (3.5-5.0); Alkaline Phosphatase 71 U/L (39-117); Anion Gap 15 (12-20); Aspartate Amino Transferase 27 U/L (5-37); Bilirubin Total 1.2 mg/dL (0.0-1.0); Blood Urea Nitrogen 16 mg/dL (9-16); Carbon Dioxide 24 mmol/L (22-29); Chloride 102 mmol/L (96-108); Cholesterol 133 mg/dL (<200); Estimated Glomerular Filt Rate > 60; Glucose Fasting 256 mg/dL (60-99); HDL Cholesterol 43 mg/dL (>40); LDL Cholesterol Calculated 74 mg/dL (<100); Potassium 4.3 mmol/L (3.3-5.1); Sodium 137 mmol/L (135-145); Total Protein 7.5 g/dL (6.5-8.0); Triglycerides 81 mg/dL (<150)
[2023-05-29 15:59] LABS: Prostate Specific Antigen Scr 1.07 ng/mL (<0.05-4.0)
[2023-05-29 17:38] LABS: Appearance Urine Clear; Color Urine Yellow; Glucose Urine UA >=1000 mg/dL (Negative); Leukocyte Esterase Urine Negative (Negative); Nitrite Urine Negative (Negative); Specific Gravity - Urine 1.025 (1.005-1.025); UMIC TRIGGER UA YES; Urine Blood Negative (Negative); Urine Ketones Trace mg/dL (Negative); Urine Protein Trace mg/dL (Neg-Trace)
[2023-05-29 17:45] LABS: Creatinine Urine 140.04 mg/dL; Microalbum/Creatinine Ratio Ur 42.8 ug/mg cr (<30)
[2023-05-29 18:02] LABS: Bacteria Urine None Seen (None Seen); Hyaline Casts Urine 0-2 /LPF (0-2); RBC Urine 0-2 /HPF (0-2); Squamous Epithelial Cell Urine 0-2 /HPF (0-2); WBC Urine 0-5 /HPF (0-5)
== END 2023-05-29 14:47 | disposition home or self-care (01) ==
LOC: HO.LAB 14:46
PROVIDERS: PCP Internal Medicine; Visit Provider Internal Medicine
DX: E11.9 Type 2 diabetes mellitus without complications (principal); I10 Essential (primary) hypertension; E78.00 Pure hypercholesterolemia, unspecified; D64.9 Anemia, unspecified; R35.1 Nocturia; Z12.5 Encounter for screening for malignant neoplasm of prostate
CPT/HCPCS: 36415; 80053; 80061; 81001; 82043; 82570; 83036; 84153; 85025

== ENCOUNTER 2023-08-09 12:42 | Outpatient (REF) | payer MEDICARE, MEDICAID, SELFPAY ==
--- NOTE | ~2023-08-09 | US_ITS ---
EXAMINATION: US RETROPERITONEAL LIMITED (RENAL ONLY) CLINICAL INFORMATION: Calculus of kidney. COMPARISON: Renal ultrasound 02/10/2023 and 02/04/2022. CT abdomen and pelvis 03/12/2018. X-ray abdomen 07/22/2015 and 06/10/2015. TECHNIQUE: Real-time imaging of the kidneys. FINDINGS: RIGHT KIDNEY: 11.9 x 5.7 x 7.0 cm (SAG x AP x TRV). The kidney is normal in size, contour, and echogenicity. Renal cortical thickness is normal. There are a few nonobstructing subcentimeter renal calculi. The largest measuring 7 mm. No hydronephrosis. LEFT KIDNEY: 12.0 x 6.0 x 5.4 cm (SAG x AP x TRV). The kidney is normal in size, contour, and echogenicity. Renal cortical thickness is normal. There are a few nonobstructing subcentimeter renal calculi present, largest measuring 8 mm. No hydronephrosis. US/US renal BI IMPRESSION: Bilateral subcentimeter nonobstructing renal calculi. No hydronephrosis of either kidney.
== END 2023-08-09 12:43 | disposition home or self-care (01) ==
LOC: HO.US 12:42
PROVIDERS: PCP Internal Medicine; Visit Provider Urology
DX: N20.0 Calculus of kidney (principal)
CPT/HCPCS: 76775

== ENCOUNTER 2023-08-22 13:31 | Outpatient (REF) | payer MEDICARE, MEDICAID, SELFPAY ==
[2023-09-04 15:48] LABS: Stone Source KIDNEY STONE
== END 2023-08-22 13:32 | disposition home or self-care (01) ==
LOC: HO.LAB 13:31
PROVIDERS: PCP Internal Medicine; Visit Provider Urology
DX: Z13.89 Encounter for screening for other disorder (principal)
CPT/HCPCS: 82365; 88300; 99212

== ENCOUNTER 2023-08-22 13:31 | Outpatient (AMB) | payer MEDICARE, MEDICAID, SELFPAY ==
--- NOTE | 2023-08-22 13:50 | A.OFFVIS_ITS ---
Intake Intake Visit Reasons: 6M US/Med review(set)confirmed Intake Note: Patient is Present for Follow Up Urology Medication: Vitamin B6 Antibiotic Allergies: None Blood Thinners: Aspirin Allergies No Known Allergies [No Known Allergies*] Allergy (Verified 08/22/23 13:53) Medication List - Last Reconciled 08/22/23 by Joesph Subramanian MD allopurinol 100 mg PO DAILY 90 days aspirin 81 mg PO DAILY 90 days atorvastatin 40 mg PO DAILY 90 days blood sugar diagnostic (FreeStyle Lite Strips) As directed checks 1 X/day blood-glucose meter (FreeStyle Lite Meter kit) As directed for blood sugar checks 1 X/day buprenorphine-naloxone 8-2 mg (Suboxone) 2 strips sublingual DAILY ezetimibe 10 mg PO DAILY fluoxetine 40 mg PO DAILY glipizide 5 mg PO BID metformin ER 1,000 mg PO BID metoprolol succinate ER 25 mg PO DAILY 90 days potassium citrate ER 20 mEq (2 x 10 mEq (1,080 mg)) PO BID 90 days pyridoxine (vitamin B6) 100 mg PO DAILY 90 days pyridoxine (vitamin B6) 50 mg PO DAILY 90 days HPI HPI Comments History of Present Illness Details Abhay is a pleasant male. He is a patient of Dr. Pollock. He is seen for the following urologic conditions. - nephrolithiasis Bilateral stones on imaging Continue potassium citrate Has specimens that he recently passed Six-month follow-up Previously discussed lemon water therapy Nephrolithiasis Longstanding - Prior intervention for distal ureteric stone Current therapy includes vitamin B6 and potassium citrate Imaging - 01/09 renal ultrasound bilateral 5 mm s tones - 08/10 renal ultrasound bilateral small stones - 02/10 renal ultrasound bilateral mm sto [place] - 02/11 renal ultrasound bilateral 5 mm s tones - 08/12 renal ultrasound bilateral 4 mm s tones Concurrent diagnoses diabetes uncontrolled Continue surveillance imaging [facility] Medical History HTN (hypertension) Retained ureteral stent Ureteral stone with hydronephrosis Primary osteoarthritis of right knee Primary osteoarthritis of left knee CAD (coronary artery disease) Hyperlipidemia Diabetes mellitus Hx of renal calculi Hx of opioid abuse Surgical History S/P knee replacement Stented coronary artery Hx of total knee replacement Hx of hernia repair Hx of lithotripsy Hx of cystoscopy Family History Father No problems noted. Mother No problems noted. 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 Review of Systems Const Denies chills and Denies fever(s) Card Reports no additional complaints and Denies syncope Resp Denies cough GI Denies abdominal pain and Denies heartburn Reports as per HPI and Denies change in libido Neuro Denies syncope Psych Denies change in libido Endo Denies change in libido Physical Exam Const General: cooperative, healthy appearing, comfortable and no acute distress Orientation/consciousness: patient oriented x3 HEENT Face and sinus: Yes normal facial exam Mouth: moist mucous membranes Neck Neck: Yes normal visual inspection, Yes full ROM and Yes trachea midline Chest Chest palpation & inspection: normal inspection of the chest Resp Effort & Inspection: normal respiratory effort, able to speak in complete sentences and no respiratory distress GI Inspection: Yes normal to inspection Back/Spine/Pelvis Cervical Spine: normal cervical lordosis Thoracic/Lumbar Spine: thoracic and lumbar spine normal to inspection Skin General skin exam: no rashes or lesions noted Neuro General: patient oriented x3, gait normal, tone normal and moves all extremities Extrem General: Yes normal to inspection and Yes capillary refill normal Assessment & Plan Assessment & Plan (1) Nephrolithiasis: Code(s): N20.0 - Calculus of kidney Plan Encourage fluids Six-month follow-up imaging Orders: Orders US renal BI 6 Months N20.0 - Calculus of kidney Surgical Today N20.0 - Calculus of kidney Patient Instructions: Imaging studies, laboratory and physical exam results were discussed and reviewed in detail. No major barriers to patient understanding were identified. An opportunity to ask questions regarding the treatment plan was provided. All questions were answered. The patient expressed understanding and agreement with the above treatment plan. The patient is aware they should contact our office by phone for worsening of their current condition or the appearance of new urologic symptoms. Compliance is encouraged with any medications and followup testing that is ordered. It is a privilege to participate in the urologic care of your patient. If you have any questions or concerns regarding treatment for the above conditions, or other urologic issues, please do not hesitate to contact me. The office telephone contact is [phone]. This note is constructed using voice recognition software. While every effort has been made to ensure accuracy compliance attorney errors may have been included. Yours sincerely, Dr Joesph Subramanian MD, [facility] - Urology Providers of Expert, Compassionate Care for the Genitourinary System Coding Level of Care Code Est Pt Level 3 (26894) Diagnoses Nephrolithiasis N20.0
== END 2023-08-22 14:17 | disposition home or self-care (01) ==
PROVIDERS: PCP Internal Medicine; Visit Provider Urology
DX: N20.0 Calculus of kidney (principal)
CPT/HCPCS: 99213

== ENCOUNTER 2023-08-22 14:19 | Outpatient (REF) | payer MEDICARE, MEDICAID, SELFPAY ==
[2023-08-22 14:43] LABS: MANUAL DIFF FLAG NO
[2023-08-22 14:58] LABS: Basophils Percent Auto 0.6 % (0-2); Eosinophils Absolute Auto 0.1 X10*3/uL (0.0-0.4); Hematocrit 42.2 % (42.0-52.0); Hemoglobin 14.4 g/dl (14.0-18.0); Imm Gran Abs Auto 0.02 X10*3/uL (0.00-0.03); Imm Gran Pct Auto 0.3 % (0.0-0.4); Lymphocytes Absolute Auto 2.6 X10*3/uL (1.2-4.9); Lymphocytes Percent Auto 36.7 % (20-40); Mean Corpuscular HGB Conc 34.1 g/dl (31.0-36.0); Mean Corpuscular Hemoglobin 30.6 pg (27.0-33.0); Mean Corpuscular Volume 89.8 fL (80.0-98.0); Mean Platelet Volume 10.1 fL (9.4-12.4); Monocytes Absolute Auto 0.4 X10*3/uL (0.1-1.2); Monocytes Percent Auto 5.8 % (2-11); Neutrophils Absolute Auto 3.9 x10*3/uL (2.0-8.3); Neutrophils Percent Auto 54.6 % (45-73); Platelet Count 152 X10*3/uL (160-400); Red Cell Distribution Width 12.7 % (11.0-16.0); White Blood Count 7.1 X10*3/uL (4.8-10.8)
[2023-08-22 15:02] LABS: Estimated Average Glucose 240 mg/dL
[2023-08-22 15:26] LABS: Anion Gap 10 (12-20); Blood Urea Nitrogen 14 mg/dL (9-16); Calcium 9.4 mg/dL (8.4-10.2); Carbon Dioxide 28 mmol/L (22-29); Chloride 103 mmol/L (96-108); Estimated Glomerular Filt Rate > 60; Glucose Random 294 mg/dL (60-115); Iron 138 mcg/dL (45-160); Percent Iron Saturation 46 % (15-50); Potassium 4.1 mmol/L (3.3-5.1); Sodium 137 mmol/L (135-145); Total Iron Binding Capacity 300 mcg/dL (228-428); Unsaturated Iron Binding 162 ug/dL
== END 2023-08-22 14:20 | disposition home or self-care (01) ==
LOC: HO.LAB 14:19
PROVIDERS: PCP Internal Medicine; Visit Provider Internal Medicine
DX: E11.9 Type 2 diabetes mellitus without complications (principal); D64.9 Anemia, unspecified; N18.9 Chronic kidney disease, unspecified
CPT/HCPCS: 36415; 80048; 82365; 83036; 83540; 85025; 88300; 99212

== ENCOUNTER 2023-12-05 12:26 | Outpatient (AMB) | payer MEDICARE, MEDICAID, SELFPAY ==
[2023-12-05 12:43] VITALS: BP 120/76; PULSE 67; BMI 29.2
--- NOTE | 2023-12-05 12:43 | MHC.OFFVIS ---
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 Allergies No Known Allergies [No Known Allergies*] Allergy (Verified 08/22/23 13:53) Medication List - Last Reconciled 12/05/23 by Jassi Warren MD allopurinol 100 mg PO DAILY 90 days aspirin 81 mg PO DAILY 90 days atorvastatin 40 mg PO DAILY blood sugar diagnostic (FreeStyle Lite Strips) As directed checks 1 X/day blood-glucose meter (FreeStyle Lite Meter kit) As directed for blood sugar checks 1 X/day buprenorphine-naloxone 8-2 mg (Suboxone) 2 strips sublingual DAILY ezetimibe 10 mg PO DAILY fluoxetine 40 mg PO DAILY glipizide 5 mg PO BID insulin glargine (Lantus Solostar U-100 Insulin) 10 units subcut QPM metformin ER 1,000 mg PO BID metoprolol succinate ER 25 mg PO DAILY 90 days potassium citrate ER 20 mEq (2 x 10 mEq (1,080 mg)) PO BID 90 days pyridoxine (vitamin B6) 50 mg PO DAILY 90 days HPI Comments Details: Abhay comes for follow-up. Doing well from cardiac perspective. Denies any symptoms of chest discomfort with exertion. He said he maintains his activity level with his usual day-to-day life. Denies any shortness of breath. Currently not smoking. Says was started on insulin 9 days ago due to uncontrolled diabetes. Otherwise taking all his medications [facility] Medical History HTN (hypertension) Retained ureteral stent Ureteral stone with hydronephrosis Primary osteoarthritis of right knee Primary osteoarthritis of left knee CAD (coronary artery disease) Hyperlipidemia Diabetes mellitus Hx of renal calculi Hx of opioid abuse Surgical History S/P knee replacement Stented coronary artery Hx of total knee replacement Hx of hernia repair Hx of lithotripsy Hx of cystoscopy Family History Father No problems noted. Mother No problems noted. 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 Review of Systems Const Denies chills, Denies fatigue, Denies fever(s), Denies frequent falls, Denies weakness, Denies weight gain and Denies weight loss ENT Denies dizziness Card Denies chest pain, Denies leg edema, Denies lightheadedness, Denies palpitations, Denies dyspnea, Denies dyspnea on exertion, Denies orthopnea and Denies other (loss of consciousness) Resp Denies cough, Denies dyspnea and Denies dyspnea on exertion GI Denies hematochezia and Denies change in stool character Musc Denies abnormal gait, Denies muscle weakness, Denies numbness, Denies radiating pain into limb and Denies tingling Neuro Denies abnormal gait, Denies dizziness, Denies frequent falls, Denies numbness, Denies tingling and Denies weakness Endo Denies fatigue and Denies palpitations Physical Exam Vital Signs: Last Vital Signs Pulse 67 12/05/23 12:43 BP 120/76 12/05/23 12:43 BMI result Body Mass Index 29.2 Const General: cooperative, comfortable, no acute distress, alert and awake Nutritional Appearance: obese Orientation/consciousness: patient oriented x3 Limitations: no limitations Neck Neck: Yes trachea midline, Yes supple and Yes no JVD Resp Effort & Inspection: normal respiratory effort Auscultation: clear to auscultation bilaterally and diminished lung sounds Cardio Jugular venous distension: no JVD Palpation: normal PMI Rate: regular rate Rhythm: regular rhythm Heart sounds: S1 normal heart sound present, S2 normal heart sound present, no click, no gallops, no murmurs and no rubs GI Auscultation: normal bowel sounds Skin General skin exam: no rashes or lesions noted Neuro General: patient oriented x3 and no focal motor deficits Extrem General: Yes no clubbing, cyanosis or edema Office Procedures EKG Details: EKG shows normal sinus rhythm with minimal voltage criteria for LVH otherwise normal EKG [id number], Complete Assessment & Plan Assessment & Plan (1) CAD (coronary artery disease): Code(s): I25.10 - Atherosclerotic heart disease of [place] coronary artery without angina pectoris Category: Medical Plan: CAD status post LAD stenting a 3 years ago. No current symptoms suggestive angina. Stable coronary artery disease. Continue aggressive management. Continue low-dose aspirin therapy for life. Continue current dual therapy with atorvastatin and Zetia. Continue aggressive blood pressure control which is currently well optimized. Diabetes management under your care with goal hemoglobin A1c less than 7%. Encouraged to continue to abstain from smoking. Continue participate in regular physical activity and weight loss program. (2) HTN (hypertension): Code(s): I10 - Essential (primary) hypertension Category: Medical Plan: Hypertension which is currently well optimized advised to monitor blood pressure at home maintain a log. Low-salt diet was discussed. Continue current metoprolol therapy. Target goal blood pressure less than 130/84. Target goal LDL less than 70 mg/dL. Follow up in the clinic in 1 year's time, sooner p.r.n.. Thank you for allowing me to partake in his care Coding Level of Care Code Est Pt Level 4 (32390) Diagnoses CAD (coronary artery disease) I25.10 HTN (hypertension) I10 CPT Codes EKG - CPT: 24934-[id number], Complete ([id number])
== END 2023-12-05 13:30 | disposition home or self-care (01) ==
PROVIDERS: PCP Internal Medicine; Visit Provider Internal Medicine Cardiovascular Disease
DX: I25.10 Atherosclerotic heart disease of native coronary artery without angina pectoris (principal); I10 Essential (primary) hypertension
CPT/HCPCS: 93010; 99214

== ENCOUNTER → 2023-12-05 12:26 | Outpatient (BNVA) | payer MEDICARE, MEDICAID, SELFPAY | PROVIDERS: PCP Internal Medicine; Visit Provider Internal Medicine Cardiovascular Disease | DX: I25.10 Atherosclerotic heart disease of native coronary artery without angina pectoris (principal); I10 Essential (primary) hypertension; Z79.4 Long term (current) use of insulin | CPT/HCPCS: 93005; 99212 ==

== ENCOUNTER 2023-12-18 12:44 | Outpatient (REF) | payer MEDICARE, MEDICAID, SELFPAY ==
[2023-12-18 14:48] LABS: Anion Gap 13 (12-20); Blood Urea Nitrogen 16 mg/dL (9-16); Calcium 9.7 mg/dL (8.4-10.2); Carbon Dioxide 28 mmol/L (22-29); Chloride 104 mmol/L (96-108); Estimated Glomerular Filt Rate > 60; Glucose Random 187 mg/dL (60-115); Potassium 4.9 mmol/L (3.3-5.1); Sodium 140 mmol/L (135-145)
[2023-12-18 15:09] LABS: Estimated Average Glucose 237 mg/dL; Hemoglobin A1c % 9.9 % (<6.0)
== END 2023-12-18 12:45 | disposition home or self-care (01) ==
LOC: HO.LAB 12:44
PROVIDERS: PCP Internal Medicine; Visit Provider Internal Medicine
DX: E11.9 Type 2 diabetes mellitus without complications (principal)
CPT/HCPCS: 36415; 80048; 83036

== ENCOUNTER 2024-01-17 10:39 | Outpatient (REF) | payer MEDICARE, MEDICAID, SELFPAY ==
--- NOTE | ~2024-01-17 | XR_ITS ---
EXAMINATION: XR ABDOMEN KUB CLINICAL INDICATION: Calculus of kidney. COMPARISON: Renal ultrasound 08/09/2023. CT abdomen and pelvis 03/12/2018. TECHNIQUE: AP view of the abdomen. FINDINGS: At least 4 calcific densities overlie the left renal shadow measuring up to 5 mm. At least 5 calcific densities overlie the right renal shadow measuring up to 2 mm. No visible calculus over the expected course of the ureters. The bowel gas pattern is unremarkable. Moderate degenerative disc disease in the lower lumbar spine. Mild osteoarthritis in the hips. XR/XR KUB IMPRESSION: Bilateral renal stones measuring up to 5 mm in size. These are likely increased in size and number as compared to the CT scan from 03/12/2018 and probably not significantly changed from renal ultrasound 08/09/2023 though comparison across modalities is difficult. Electronically signed by: Chandra Dalton MD 02/01/2024 01:51 PM EDT
== END 2024-01-17 10:40 | disposition home or self-care (01) ==
LOC: HO.XRAY 10:39
PROVIDERS: PCP Internal Medicine; Visit Provider Urology
DX: N20.0 Calculus of kidney (principal)
CPT/HCPCS: 74018

== ENCOUNTER 2024-02-09 12:31 | Outpatient (REF) | payer MEDICARE, MEDICAID, SELFPAY ==
--- NOTE | ~2024-02-09 | US_ITS ---
EXAMINATION: US RETROPERITONEAL LIMITED (RENAL ONLY) CLINICAL INFORMATION: Calculus of kidney. COMPARISON: X-ray KUB 03/18/2024 and 07/22/2015. Ultrasound renal 08/09/2023 and 02/10/2023. CT abdomen and pelvis 03/12/2018. TECHNIQUE: Real-time imaging of the kidneys. FINDINGS: RIGHT KIDNEY: 12.2 x 6.6 x 5.0 cm (SAG x AP x TRV). The kidney is normal in size, contour, and echogenicity. Renal cortical thickness is normal. Two echogenic foci are seen in the upper and mid to lower kidney measuring 9 and 7 mm respectively, consistent with nonobstructing calculi. No focal parenchymal lesions or hydronephrosis. LEFT KIDNEY: 12.1 x 7.1 x 5.0 cm (SAG x AP x TRV). The kidney is normal in size, contour, and echogenicity. Renal cortical thickness is normal. Three echogenic foci are seen in the upper pole, mid kidney and mid to lower kidney, measuring 7 mm in size each, consistent with nonobstructing calculi. No hydronephrosis. A benign upper pole 1.9 cm Bosniak class I renal cyst is noted which requires no additional imaging or follow up. No solid renal masses are seen. US/US renal BI IMPRESSION: Bilateral nonobstructing renal calculi. Electronically signed by: Kale Orozco MD 02/14/2024 05:06 PM EDT
== END 2024-02-09 12:32 | disposition home or self-care (01) ==
LOC: HO.US 12:31
PROVIDERS: PCP Internal Medicine; Visit Provider Urology
DX: N20.0 Calculus of kidney (principal)
CPT/HCPCS: 76775

== ENCOUNTER 2024-02-22 09:48 | Outpatient (AMB) | payer MEDICARE, MEDICAID, SELFPAY ==
--- NOTE | 2024-02-22 09:45 | MHC.OFFVIS ---
Intake Visit Reasons: call home # Intake Note: Patient is present for A CALL HOME Urology Medication:ALLOPURINOL, VITAMIN B6 Antibiotic Allergy:NONE Blood Thinner:ASPIRIN Soaker Helper Required: No Allergies No Known Allergies [No Known Allergies*] Allergy (Verified 02/22/24 09:46) HPI Comments Details: Abhay is a pleasant male. He is a patient of Dr. Pollock. He is seen for the following urologic conditions. - nephrolithiasis Six-month follow-up Telemedicine Evaluation 15 min Consultation Vibes Lance Video Dropped off specimens at last visit States right side has more discomfort currently and thinks this stones Imaging shows 7 mm x 2 on right side, 7 mm x 1 on left side Discussed ESWL Would like to proceed Also needs Uro risk with Litholink completed Previously discussed lemon water therapy Nephrolithiasis Longstanding - Prior intervention for distal ureteric stone Current therapy includes vitamin B6 and potassium citrate Imaging - 01/09 renal ultrasound bilateral 5 mm stones - 08/10 renal ultrasound bilateral small stones - 02/10 renal ultrasound bilateral mm stones - 02/11 renal ultrasound bilateral 5 mm stones - 08/12 renal ultrasound bilateral 4 mm stones Stone composition - 08/12 calcium oxalate monohydrate Concurrent diagnoses diabetes uncontrolled Continue surveillance imaging [facility] Medical History HTN (hypertension) Retained ureteral stent Ureteral stone with hydronephrosis Primary osteoarthritis of right knee Primary osteoarthritis of left knee CAD (coronary artery disease) Hyperlipidemia Diabetes mellitus Hx of renal calculi Hx of opioid abuse Surgical History S/P knee replacement Stented coronary artery Hx of total knee replacement Hx of hernia repair Hx of lithotripsy Hx of cystoscopy Family History Father No problems noted. Mother No problems noted. 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 Review of Systems Const All systems reviewed & are unremarkable except as noted in HPI and below Reports no additional complaints Resp Reports no additional complaints GI Reports no additional complaints Reports as per HPI Musc Reports no additional complaints Physical Exam Telemedicine evaluation Appropriate responses Regular breathing rate and rhythm HEENT Head: Yes normal to inspection Ears: hearing grossly normal bilaterally Eyes General: appearance normal, both eyes and all related structures Neck Neck: Yes normal visual inspection Chest Chest palpation & inspection: normal inspection of the chest Resp Effort & Inspection: normal respiratory effort and able to speak in complete sentences Telehealth Telehealth Telehealth Platform: Vibes Location of provider rendering services: practice address Location of patient: address on file Patient Identification confirmed using: Name, : Yes Telehealth method: video Patient verbally consented to treatment: Yes Patient verbally consented to billing insurance company: Yes Patient informed of any privacy concerns related to visit: Yes Minutes spent on Phone/Video with Pt.: 15 Assessment & Plan Assessment & Plan (1) Nephrolithiasis: Code(s): N20.0 - Calculus of kidney Category: Medical Plan Extracorporeal Shock Wave Lithotripsy We discussed the nature of the decision and reasonable alternatives for performing the above surgery. Interventions include chemical dissolution, ESWL, ureteroscopy with laser lithotripsy and stent placement, PCNL. Options such as medical therapy were discussed. The relative uncertainties and benefits related to each alternate procedure were adequately discussed. General surgical risks including, but not limited to, pain, bleeding, infection, myocardial infarction, pulmonary embolus, deep vein thrombosis and cerebrovascular accident which may result in further hospitalization were discussed. Full disclosure of the procedure as well as all major risks, benefits and complications were discussed including but not limited to risks of bleeding, injury to the kidney with hematoma or nadira-hematoma, failure to fragments stone, potential for ureteric obstruction from stone passage and need for secondary procedures. There is a small long-term risk of hypertension and a question james of diabetes. Success rate of fragmentation and passage is approximately 70- 75%. This is compared to the risks and benefits for ureteroscopy which has a higher success rate but is a more invasive procedure. The success rate of the procedure was discussed. Success of the procedure in the short-term does not necessarily guarantee that long-term success will be maintained. Suitable follow up will need to be maintained. The patient showed understanding of the discussion as well as the typical recovery time, and the outpatient nature of this procedure. Opportunity was given for questions. Repeat-back protocol used to confirm understanding. They wish to proceed with right ESWL Orders: Orders URORISK Today N20.0 - Calculus of kidney Medications: Refilled allopurinol 100 mg PO DAILY 90 days 90 tabs 3RF N20.0 - Calculus of kidney Patient Instructions: Imaging studies, laboratory and physical exam results were discussed and reviewed in detail. No major barriers to patient understanding were identified. An opportunity to ask questions regarding the treatment plan was provided. All questions were answered. The patient expressed understanding and agreement with the above treatment plan. The patient is aware they should contact our office by phone for worsening of their current condition or the appearance of new urologic symptoms. Compliance is encouraged with any medications and followup testing that is ordered. It is a privilege to participate in the urologic care of your patient. If you have any questions or concerns regarding treatment for the above conditions, or other urologic issues, please do not hesitate to contact me. The office telephone contact is [phone]. This note is constructed using voice recognition software. While every effort has been made to ensure accuracy business solutions consultant errors may have been included. Yours sincerely, Dr Joesph Subramanian MD, [facility] - Urology Providers of Expert, Compassionate Care for the Genitourinary System Coding Level of Care Code Tele Est Pt Level 3 (62887) Diagnoses Nephrolithiasis N20.0
== END 2024-02-22 10:41 | disposition home or self-care (01) ==
LOC: HO.HUSH 09:48
PROVIDERS: PCP Internal Medicine; Visit Provider Urology
DX: N20.0 Calculus of kidney (principal)
CPT/HCPCS: 99213

== ENCOUNTER → 2024-02-22 09:48 | Outpatient (BNVA) | payer MEDICARE, MEDICAID, SELFPAY | PROVIDERS: PCP Internal Medicine; Visit Provider Urology ==

== ENCOUNTER 2024-03-08 12:26 | Outpatient (REF) | payer MEDICARE, MEDICAID, SELFPAY ==
[2024-03-08 12:57] LABS: MANUAL DIFF FLAG NO
[2024-03-08 13:28] LABS: Basophils Percent Auto 0.4 % (0-2); Eosinophils Absolute Auto 0.1 X10*3/uL (0.0-0.4); Eosinophils Percent Auto 1.2 % (0-4); Hematocrit 35.6 % (42.0-52.0); Imm Gran Abs Auto 0.01 X10*3/uL (0.00-0.03); Imm Gran Pct Auto 0.1 % (0.0-0.4); Lymphocytes Absolute Auto 1.9 X10*3/uL (1.2-4.9); Lymphocytes Percent Auto 25.5 % (20-40); Mean Corpuscular HGB Conc 33.7 g/dl (31.0-36.0); Mean Corpuscular Hemoglobin 31.3 pg (27.0-33.0); Mean Corpuscular Volume 92.7 fL (80.0-98.0); Mean Platelet Volume 10.2 fL (9.4-12.4); Monocytes Absolute Auto 0.5 X10*3/uL (0.1-1.2); Monocytes Percent Auto 7.2 % (2-11); Neutrophils Absolute Auto 4.9 x10*3/uL (2.0-8.3); Neutrophils Percent Auto 65.6 % (45-73); Platelet Count 162 X10*3/uL (160-400); Red Blood Count 3.84 X10*6/uL (4.60-5.80); Red Cell Distribution Width 13.8 % (11.0-16.0); White Blood Count 7.5 X10*3/uL (4.8-10.8)
[2024-03-08 13:46] LABS: Estimated Average Glucose 154 mg/dL; Hemoglobin A1C 164.3422 umol/L; Total Hemoglobin (HGBA1C) 3087.2851 umol/L
[2024-03-08 14:10] LABS: Anion Gap 12 (12-20); Blood Urea Nitrogen 18 mg/dL (9-16); Calcium 9.3 mg/dL (8.4-10.2); Carbon Dioxide 27 mmol/L (22-29); Chloride 106 mmol/L (96-108); Estimated Glomerular Filt Rate > 60; Glucose Random 140 mg/dL (60-115); Potassium 4.9 mmol/L (3.3-5.1); Sodium 140 mmol/L (135-145)
== END 2024-03-08 12:27 | disposition home or self-care (01) ==
LOC: HO.LAB 12:26
PROVIDERS: PCP Internal Medicine; Visit Provider Internal Medicine
DX: E11.9 Type 2 diabetes mellitus without complications (principal)
CPT/HCPCS: 36415; 80048; 83036; 85025

== ENCOUNTER 2024-04-10 05:49 | Day surgery (SDC) | payer MEDICARE, MEDICAID, SELFPAY ==
--- NOTE | 2024-04-09 12:22 | HO.ANESPROP2 ---
Documented by User: Cristy Sen NP 04/09/24 12:23 HPI - Anesthesia Eval Consult details Narrative: 69yo M for Right ESWL Follows [facility] Cardiology for CAD s/p stent ~2020. Stable at yearly routine office visit 11/2023 Suboxone daily PMFSH Active Problems Active Problems: All Active Problems HTN (hypertension) (Acute) Primary osteoarthritis, right ankle and foot (Acute) Nephrolithiasis (Acute) CAD (coronary artery disease) (Acute) Hyperlipidemia (Acute) Diabetes mellitus (Acute) Abnormal nuclear stress test (Acute) SOB (shortness of breath) on exertion (Acute) Past Medical History Medical History HTN (hypertension) Retained ureteral stent Ureteral stone with hydronephrosis Primary osteoarthritis of right knee Primary osteoarthritis of left knee CAD (coronary artery disease) Hyperlipidemia Diabetes mellitus Hx of renal calculi Hx of opioid abuse Family History Family History Father No problems noted. Mother No problems noted. Family history of problems with anesthesia: No Surgical History Surgical History S/P knee replacement Stented coronary artery Hx of total knee replacement Hx of hernia repair Hx of lithotripsy Hx of cystoscopy History of Problems with Anesthesia: No Social History Social History Household Members: Significant Other Household Members Other:: Alison Garcia Alcohol intake: current Alcohol intake frequency: does not drink Patient Tobacco Use Status: Former Tobacco user Tobacco use type: Cigarette Years Smoked: many Substance Use Type: Opiates Have you been hit, kicked, punched, or otherwise hurt by someone within the past year? 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 Meds Allergies Allergy/AdvReac Type Severity Reaction Status Date / Time No Known Allergies Allergy Verified 02/22/24 09:46 [No Known Allergies*] Home Medications ?Medication ?Instructions ?Recorded ?Confirmed ?Last Taken ?Type buprenorphine 8 mg-naloxone 2 mg 2 strip sublingual DAILY 06/24/20 12/05/23 06/30/20 09:30 History sublingual film (Suboxone) fluoxetine 20 mg capsule 40 mg PO DAILY 09/30/20 12/05/23 Unknown History glipizide 5 mg tablet 5 mg PO BID 12/09/21 12/05/23 Unknown History metformin 500 mg tablet,extended 1,000 mg PO BID 07/15/22 12/05/23 Unknown History release 24 hr insulin glargine 100 unit/mL (3 10 unit subcut QPM 12/05/23 12/05/23 Unknown History mL) subcutaneous pen (Lantus Solostar U-100 Insulin) Exam Narrative Narrative: EKG 11/2023 Details: EKG shows normal sinus rhythm with minimal voltage criteria for LVH otherwise normal EKG Assessment and Plan Assessment Anesthesia Assessment: Chart Reviewed Final Anesthetic Review Family History of Problems with Anesthesia: No History of Problems with Anesthesia: No Documented by User: Cindy Pa MD 04/10/24 07:59 PMFSH Past Medical History Medical History HTN (hypertension) Retained ureteral stent Ureteral stone with hydronephrosis Primary osteoarthritis of right knee Primary osteoarthritis of left knee CAD (coronary artery disease) Hyperlipidemia Diabetes mellitus Hx of renal calculi Hx of opioid abuse Family History Family History Father No problems noted. Mother No problems noted. Surgical History Surgical History S/P knee replacement Stented coronary artery Hx of total knee replacement Hx of hernia repair Hx of lithotripsy Hx of cystoscopy Social History Social History Household Members: Significant Other Household Members Other:: Alison Garcia Alcohol intake: current Alcohol intake frequency: does not drink Patient Tobacco Use Status: Former Tobacco user Tobacco use type: Cigarette Years Smoked: many Substance Use Type: Opiates Have you been hit, kicked, punched, or otherwise hurt by someone within the past year? 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 Meds Allergies Allergy/AdvReac Type Severity Reaction Status Date / Time No Known Allergies Allergy Verified 02/22/24 09:46 [No Known Allergies*] Home Medications ?Medication ?Instructions ?Recorded ?Confirmed ?Last Taken ?Type buprenorphine 8 mg-naloxone 2 mg 2 strip sublingual DAILY 06/24/20 12/05/23 06/30/20 09:30 History sublingual film (Suboxone) fluoxetine 20 mg capsule 40 mg PO DAILY 09/30/20 12/05/23 Unknown History glipizide 5 mg tablet 5 mg PO BID 12/09/21 12/05/23 Unknown History metformin 500 mg tablet,extended 1,000 mg PO BID 07/15/22 12/05/23 Unknown History release 24 hr insulin glargine 100 unit/mL (3 10 unit subcut QPM 12/05/23 12/05/23 Unknown History mL) subcutaneous pen (Lantus Solostar U-100 Insulin) Exam Airway Mallampati Class: II TM Dist: <=3cm Neck ROM: Limited Loose/Missing/Broken Teeth: Yes, Upper and Lower Heart: rrr Lungs: cta Assessment and Plan Assessment Anesthesia Assessment: Anesthesia Plan Discussed Final Anesthetic Review NPO: Yes ASA Class: III Final Preanesthetic Review: No Changes in Pt Med Stat, Meds/Allgs Chart Reviewed, Consent Obtained/Reviewed and Anes Risks/Benef Reviewed Patient Risk: Intermediate Anesthetic Plan Anesthetic Plan: MAC: Disposition: Standard PACU
--- NOTE | ~2024-04-10 | XR_ITS ---
EXAMINATION: XR ABDOMEN KUB CLINICAL INDICATION: Right-sided renal stone. COMPARISON: Most recent renal ultrasound dated 02/09/2024 and abdominal radiograph dated 01/17/2024. TECHNIQUE: AP views of the abdomen. FINDINGS: Redemonstration of multiple bilateral renal stones measuring up to 0.4 cm on the right and 0.6 cm on the left, similar or slightly increased in size when compared to the prior examination. No radiopaque ureteral stone or pelvic stone. Nonobstructive bowel gas pattern. Mild air and stool throughout the bowel. No acute osseous abnormality. XR/XR KUB IMPRESSION: Multiple bilateral renal stones measuring up to 0.4 cm on the right and 0.6 cm on the left, similar or slightly increased in size when compared to the prior examination. Electronically signed by: Leon Anand MD 04/10/2024 10:32 AM JO-ANN
[2024-04-10 06:09] VITALS: BMI 29.7
[2024-04-10 06:23] LABS: Glucose, Whole Blood 187 mg/dL (60-115)
[2024-04-10 06:30] VITALS: BP 139/87; PULSE 64; RESP 18; TEMP 36.9; O2SAT 97
[2024-04-10] MEDS: Lactated Ringers 1,000 ML 100 ML IVCONT (06:33)
--- NOTE | 2024-04-10 07:33 | MHC.SHP ---
Pre-Procedural Eval Section A - 24 Hr Update-Section A only Date of Service: 04/10/24 The patient is an INPATIENT: No Changes since office visit: No Cold of Flu in the past 2 weeks, No New Medical Problems, No Changes in Medication and No Patient answered all questions The patient has been examined within 24 hours of the surgical procedure. The History & Physical has been completed within 30 days and I have reviewed it.: Yes Section B - Complete if H&P > 30 days Chief Complaint: Calculus of kidney Details of Present Illness: right eswl Relevant Social History: None Present Medications: see Short Stay Collaborative assessment Medical History: No relevant PMH History of Previous Operations: No relevant previous surgery Allergies: Allergies Allergy/AdvReac Type Severity Reaction Status Date / Time No Known Allergies Allergy Verified 02/22/24 09:46 [No Known Allergies*] Review of Systems Sugical H&P ROS: Negative: Constitution, Cardiovascular, Respiratory, Neurological, Psychiatric, Hem-Onc, Allergic/Immunologic, Gastrointestinal, Genitourinary, Musculoskeletal, Integumentary, Endocrine and Eyes/Ears/Nose/Throat Exam Surgical H&P Exam: Normal: HEENT, Normal: Heart, Normal: Lungs, Normal: Extremities, Normal: Abdomen, Normal: Skin and Normal: Neurological Plan Diagnosis/Plan: Unchanged I have reviewed the history and physical and performed a pertinent physical examination on my patient. No changes have occurred unless specified. Time Spent With Patient Time: Total time managing care of this patient today ____ minutes.
--- NOTE | 2024-04-10 07:52 | W.PM.OPN ---
Operative Note Operative Note Date of Service: 04/10/24 Narrative: PreOperative Diagnosis: right Renal stones Post Operative Diagnosis: right Renal stones Procedure: right ESWL Surgeon: Dr Joesph Subramanian Anesthesia: mac/sedation Indications for procedure: The patient understands ESWL may be a staged procedure and subsequent intervention may be required based on imaging after ESWL. Quoted stone clearance rates for a solitary procedure are in the 70-80% range based primarily on stone location. They also understand there is a risk of bleeding to the kidney, infection, damage to adjacent organs, and stone migration following the procedure. - Imaging 9x6 mm upper pole Procedure optimization has been performed with IV acetaminophen given in the holding area and 1 L of lactated Ringer's to be given in order to optimize the fluid-stone interface. 20 mg of IV Lasix will be given in the last 5 minutes of the procedure to optimize stone clearance. Procedure: After informed consent was verified the patient was brought to the operating room and placed in a supine position. Anesthesia was performed per protocol. Safety pause time-out was performed. Imaging was displayed in the room and laterality confirmed. ESWL was performed. The 1st 500 shocks were performed at 60 hertz. These were performed with increasing power. Once maximum power was reached the rate was increased to 180 hertz. A total of 2500 shocks were given. Targeted imaging with ultrasound/fluoroscopy showed stone smudging suggestive of disintegration. The patient tolerated the procedure well and was transferred to the recovery area upon completion. Post procedure imaging will be organized. There was no evidence for flank discoloration.
[2024-04-10 08:17] VITALS: BP 149/73; PULSE 75; RESP 16; TEMP 36.3; O2SAT 96
[2024-04-10 08:34] VITALS: BP 147/90; PULSE 66; RESP 17; TEMP 36.3; O2SAT 96
== END 2024-04-10 08:57 | disposition home or self-care (01) ==
PROVIDERS: PCP Internal Medicine; Visit Provider Urology
PROC: (CPT 50590; principal; 2024-04-10 07:30)
DX: N20.0 Calculus of kidney (principal); Z96.0 Presence of urogenital implants; Z87.442 Personal history of urinary calculi; I10 Essential (primary) hypertension; E78.5 Hyperlipidemia, unspecified; I25.10 Atherosclerotic heart disease of native coronary artery without angina pectoris; Z95.5 Presence of coronary angioplasty implant and graft; E11.9 Type 2 diabetes mellitus without complications; Z79.4 Long term (current) use of insulin; Z79.84 Long term (current) use of oral hypoglycemic drugs; Z79.82 Long term (current) use of aspirin; Z79.899 Other long term (current) drug therapy; F11.20 Opioid dependence, uncomplicated; Z96.653 Presence of artificial knee joint, bilateral; Z87.891 Personal history of nicotine dependence
CPT/HCPCS: 50590; 74018; 82947; J0131; J1940; J2003; J2704

== ENCOUNTER → 2024-04-10 05:49 | Outpatient (BNV) | payer MEDICARE, MEDICAID, SELFPAY | PROVIDERS: PCP Internal Medicine; Visit Provider Urology | DX: N20.0 Calculus of kidney (principal) | CPT/HCPCS: 50590 ==

== ENCOUNTER 2024-05-17 12:53 | Outpatient (REF) | payer MEDICARE, MEDICAID, SELFPAY ==
--- OUTSIDE RECORDS SUMMARY | 2024-05-17 12:56 | XMS_ITS | Patient Health Record ---
Author Organization [facility] Address [address] [place] [address] Care Team Providers Care Packager Machine Name Role Phone Quinten Pollock MD Primary Care Provider Unavaila Mani Conley Jr Unavailable [phone] REASON FOR REFERRAL No Information MEDICATIONS Medication SIG (Take, Route, Frequency, Duration) Notes Start Date End Date Status MiraLax (colon prep) 8.3 ounce ((238) grams mixed with Gatorade or Crystal Light orally begin at 5:00 p.m. the day before the procedure for 1 day 06/18/2020 Active FLUoxetine HCl 20 MG TAKE 2 CAPSULES BY MOUTH EVERY DAY Oral for 30 Active metFORMIN HCl 500 MG TAKE 1 TABLET BY MO UTH EVERY DAY Oral for 30 Active Aleve 220 MG 1 tablet with food o r milk as needed Orally every 12 hrs Active Suboxone 8-2 MG (Schedule III Drug) DISSOLVE 2 FILMS UNDER THE TONGUE ONCE A DAY Sublingual for 7 Active IMMUNIZATIONS Vaccine Route Administration Date Status Comme nts Influenza Unknown 06/18/2020 Refused SOCIAL HISTORY Tobacco Use: Social History Observation Description Date Details (start date - stop date) Former Smoker NA - NA Sex Assigned At : Social History Observation Description Sex Assigned At Unknown Tobacco Use/Smoking Question Answer Notes Patient is a former smoker How long has it been since you last smoked? 1-5 years Alcohol Screen Question Answer Notes Did you have a drink containing alcohol in the p ast year? No Points 0 Interpretation Negative PROBLEMS Problem Type ICD Code Onset Dates Problem Status W/U Status Risk SNOMED Code Notes Problem Colon cancer screening (Z12.11) Active confirmed 011233669 Problem Encounter for other preprocedural examination (Z01.818) Active confirmed 580067682 Problem emt intermediate (current) use of non-steroidal anti-inflammatorie s (NSAID) (Z79.1) Active confirmed 529536076 PLAN OF TREATMENT Future Test Test Name Order Date COLONOSCOPY 06/18/2020 Insurance Providers Payer Name Payer Address Payer Phone Subscriber Number Group Number Insured Name Patient Relationship to Insured Coverage Start Date Coverage End Date MEDICARE OF [place] [address] [place] [address] [id number] PRASANNA JOHANSEN Self - patient is the insured MEDICAID OF [facility] [address] [place] [address] [id number] PRASANNA JOHANSEN Self - patient is the insured MEDICAL (GENERAL) HISTORY Medical History History ICD Code elevated blood sugar nephrolithiasis opioid dependence Surgical History Surgery Date(Month/Year) right knee replacement 2019 left knee replacement kidney stones hernia
== END 2024-05-17 12:54 | disposition home or self-care (01) ==
LOC: HO.US 12:53
PROVIDERS: PCP Internal Medicine; Visit Provider Urology
DX: N20.0 Calculus of kidney (principal)
CPT/HCPCS: 76775

== ENCOUNTER → 2024-05-17 12:55 | Outpatient (BNV) | payer MEDICARE, MEDICAID, SELFPAY | PROVIDERS: PCP Internal Medicine; Visit Provider Radiology Diagnostic Radiology | DX: N20.0 Calculus of kidney (principal) | CPT/HCPCS: 76775 ==

== ENCOUNTER 2024-05-31 10:33 | Outpatient (AMB) | payer MEDICARE, MEDICAID, SELFPAY ==
--- NOTE | 2024-05-31 10:35 | A.OFFVIS_ITS ---
Intake Visit Reasons: ESWL/US/Litho(Pending) Intake Note: Pt presents to the office today for a follow up ESWL/US/Litho. Allergies No Known Allergies [No Known Allergies*] Allergy (Verified 07/06/24 08:01) HPI Comments Details: Abhay is a pleasant male. He is a patient of Dr. Pollock. He is seen for the following urologic conditions. - nephrolithiasis Completed right ESWL Imaging shows 85% reduced stone burden plan for left eswl Previously discussed lemon water therapy Nephrolithiasis Longstanding - Prior intervention for distal ureteric stone Current therapy includes vitamin B6 and potassium citrate Imaging - 01/09 renal ultrasound bilateral 5 mm stones - 08/10 renal ultrasound bilateral small stones - 02/10 renal ultrasound bilateral mm stones - 02/11 renal ultrasound bilateral 5 mm stones - 08/12 renal ultrasound bilateral 4 mm stones - 02/12 renal ultrasound right side 9, 7 - left side 7 mm - 05/14 renal ultrasound right side 4 mm, left side 7 mm Stone composition - 08/12 calcium oxalate monohydrate Intervention - 04/14 R ESWL 24 hour urine - good volume, high oxalate, high citrate, high sodium Concurrent diagnoses diabetes uncontrolled Continue surveillance imaging [facility] Medical History (Updated 07/07/24 @ 00:01 by Mauro Cordoba) Edema Wears partial dentures HTN (hypertension) Retained ureteral stent Ureteral stone with hydronephrosis Primary osteoarthritis of right knee Primary osteoarthritis of left knee CAD (coronary artery disease) Hyperlipidemia Diabetes mellitus Hx of renal calculi Hx of opioid abuse Surgical History (Updated 07/05/24 @ 14:22 by Abbie Watson RN) Hx of lithotripsy (04/10/24) S/P knee replacement Stented coronary artery Hx of total knee replacement Hx of hernia repair Hx of lithotripsy Hx of cystoscopy Family History Father No problems noted. Mother No problems noted. Social History Household Members: Significant Other Household Members Other:: Alison Garcia Are you a primary manager medicare marketing to a significant other at home: Yes (SO) Do you presently have visiting nurse or other home services: No Alcohol intake: current Alcohol intake frequency: does not drink Patient Tobacco Use Status: Former Tobacco user Tobacco use type: Cigarette Years Smoked: many Smoked in Last 30 Days: No Substance Use Type: Opiates Substance Use Type Other:: on Suboxone 3 years, r/t opiate abuse Have you been hit, kicked, punched, or otherwise hurt by someone within the past year? 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 Review of Systems Const Denies chills and Denies fever(s) Card Reports no additional complaints and Denies syncope Resp Denies cough GI Denies abdominal pain and Denies heartburn Reports as per HPI and Denies change in libido Neuro Denies syncope Psych Denies change in libido Endo Denies change in libido Physical Exam Const General: cooperative, healthy appearing, comfortable and no acute distress Orientation/consciousness: patient oriented x3 HEENT Face and sinus: Yes normal facial exam Mouth: moist mucous membranes Neck Neck: Yes normal visual inspection, Yes full ROM and Yes trachea midline Chest Chest palpation & inspection: normal inspection of the chest Resp Effort & Inspection: normal respiratory effort, able to speak in complete sentences and no respiratory distress GI Inspection: Yes normal to inspection Back/Spine/Pelvis Cervical Spine: normal cervical lordosis Thoracic/Lumbar Spine: thoracic and lumbar spine normal to inspection Skin General skin exam: no rashes or lesions noted Neuro General: patient oriented x3, gait normal, tone normal and moves all extremities Extrem General: Yes normal to inspection and Yes capillary refill normal Assessment & Plan Assessment & Plan (1) Nephrolithiasis: Code(s): N20.0 - Calculus of kidney Category: Medical Plan Extracorporeal Shock Wave Lithotripsy We discussed the nature of the decision and reasonable alternatives for performing the above surgery. Interventions include chemical dissolution, ESWL, ureteroscopy with laser lithotripsy and stent placement, PCNL. Options such as medical therapy were discussed. The relative uncertainties and benefits related to each alternate procedure were adequately discussed. General surgical risks including, but not limited to, pain, bleeding, infection, myocardial infarction, pulmonary embolus, deep vein thrombosis and cerebrovascular accident which may result in further hospitalization were discussed. Full disclosure of the procedure as well as all major risks, benefits and complications were discussed including but not limited to risks of bleeding, injury to the kidney with hematoma or nadira-hematoma, failure to fragments stone, potential for ureteric obstruction from stone passage and need for secondary procedures. There is a small long-term risk of hypertension and a question james of diabetes. Success rate of fragmentation and passage is approximately 70- 75%. This is compared to the risks and benefits for ureteroscopy which has a higher success rate but is a more invasive procedure. The success rate of the procedure was discussed. Success of the procedure in the short-term does not necessarily guarantee that long-term success will be maintained. Suitable follow up will need to be maintained. The patient showed understanding of the discussion as well as the typical recovery time, and the outpatient nature of this procedure. Opportunity was given for questions. Repeat -back protocol used to confirm understanding. They wish to proceed with left ESWL Patient Instructions: This note is constructed using voice recognition software. While every effort has been made to ensure accuracy infantry officer errors may have been included. Imaging studies, laboratory and physical exam results were discussed and reviewed in detail. No major barriers to patient understanding were identified. An opportunity to ask questions regarding the treatment plan was provided. All questions were answered. The patient expressed understanding and agreement with the above treatment plan. The patient is aware they should contact our office by phone for worsening of their current condition or the appearance of new urologic symptoms. Compliance is encouraged with any medications and followup testing that is ordered. It is a privilege to participate in the urologic care of your patient. If you have any questions or concerns regarding treatment for the above conditions, or other urologic issues, please do not hesitate to contact me. The office telephone contact is [phone]. Sincerely, Dr Joesph Subramanian MD, [facility] - Urology Compassionate Specialist Care for the Genitourinary System Coding Level of Care Code Est Pt Level 4 (71079) Diagnoses Nephrolithiasis N20.0
--- OUTSIDE RECORDS SUMMARY | 2024-05-31 10:48 | XMS_ITS | Patient Health Record ---
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) use of non-steroidal anti-inflammatorie s (NSAID) (Z79.1) Active confirmed [id number] PLAN OF TREATMENT Future Test Test Name Order Date COLONOSCOPY 06/18/2020 Insurance Providers Payer Name Payer Address Payer Phone Subscriber Number Group Number Insured Name Patient Relationship to Insured Coverage Start Date Coverage End Date MEDICARE OF [place] [address] [place] [address] [phone] [id number] PRASANNA JOHANSEN Self - patient is the insured MEDICAID OF [facility] [address] [place] [address] [id number] PRASANNA JOHANSEN Self - patient is the insured MEDICAL (GENERAL) HISTORY Medical History History ICD Code elevated blood sugar nephrolithiasis opioid dependence Surgical History Surgery Date(Month/Year) right knee replacement 2019 left knee replacement kidney stones hernia
== END 2024-05-31 11:19 | disposition home or self-care (01) ==
PROVIDERS: PCP Internal Medicine; Visit Provider Urology
DX: N20.0 Calculus of kidney (principal)
CPT/HCPCS: 99024

== ENCOUNTER → 2024-05-31 10:33 | Outpatient (BNVA) | payer MEDICARE, MEDICAID, SELFPAY | PROVIDERS: PCP Internal Medicine; Visit Provider Urology | DX: N20.0 Calculus of kidney (principal) | CPT/HCPCS: 99212 ==

== ENCOUNTER 2024-07-06 07:44 | Emergency (ER) | payer MEDICARE, MEDICAID, SELFPAY ==
--- NOTE | ~2024-07-06 | XR_ITS ---
CLINICAL HISTORY: SOB 2 view chest x-ray Comparison: None Findings: Lungs are well inflated. Cardiac silhouette is within normal limits. Streaky density in the retrocardiac location of the left lower lobe. Lungs are otherwise clear. No pleural effusion. IMPRESSION: Streaky retrocardiac left lower lobe density can be seen with atelectasis, scarring, or pneumonia. This document has been electronically signed by: Anthony Fallon MD on 07/06/2024 08:54:13
--- NOTE | ~2024-07-06 | US_ITS ---
CLINICAL HISTORY: new edema Venous duplex ultrasound bilateral lower extremity Comparison: None Findings: The visualized deep veins are fully compressible with normal Doppler color flow and spectral tracings. No popliteal cyst. IMPRESSION: 1. Negative for bilateral lower extremity deep vein thrombosis. This document has been electronically signed by: Anthony Fallon MD on 07/06/2024 09:10:37
[2024-07-06 07:57] VITALS: BP 163/97; PULSE 72; RESP 16; TEMP 36.6; O2SAT 97; BMI 29.8
--- NOTE | 2024-07-06 08:02 | ECG_ITS ---
Test Reason : DIZZINESS Blood Pressure : */* mmHG Vent. Rate : 74 BPM Atrial Rate : 74 BPM P-R Int : 198 ms QRS Dur : 92 ms QT Int : 400 ms P-R-T Axes : 5 -28 0 degrees QTcB Int : 444 ms Normal sinus rhythm Minimal voltage criteria for LVH, may be normal variant ( R in aVL ) Cannot rule out Anterior infarct , age undetermined Abnormal ECG When compared with ECG of 27-Oct-2017 15:14, No significant change was found Referred By: Generic ED Physician Electronically Signed By: DIONICIO LATHAM MD
--- NOTE | 2024-07-06 08:10 | ED.GENADULT ---
HPI - General Adult General Chief complaint: General Medical Stated complaint: dizziness Time Seen by Provider: 07/06/24 08:09 Source: patient Mode of arrival: ambulatory Limitations: no limitations History of Present Illness ED Provider: Mazin Birmingham PA-C HPI narrative: 69 y/o male with history of DM2, HLD, CAD s/p stent, kidney stones who presents to the ER from home c/o generalized weakness, lightheadedness, SOB, and new bilateral LE edema R>L for the last 5-6 days. He reports his symptoms are actually better today but he spoke with the scheduler conveyor for his lithotripsy next week, told them his symptoms who encouraged him to get evaluated before the procedure on Monday. He reports he has been weak and lightheaded with low energy. He has had some muscle and body aches. His RLE was so swollen he could barely put a shoe on, but it is better now. Denies hx CHF, not on diuretics. He denies chest pain, abdominal pain, N/V/D. He states he has been eating and drinking normally. He reports a low grade fever at home tonce his week. MD complaint: weakness, lightheadedness, leg swelling Onset (ago): day(s) (-) Location: left, right and lower extremity Radiation: non-radiation Severity: moderate Quality: aching Pain Consistency: intermittent Relieving factors: rest Exacerbating factors: movement Associated symptoms: malaise, shortness of breath and weakness Treatments prior to arrival: none Related Data Home Medications ?Medication ?Instructions ?Recorded ?Confirmed buprenorphine 8 mg-naloxone 2 mg 2 strip sublingual DAILY 06/24/20 07/05/24 sublingual film (Suboxone) fluoxetine 20 mg capsule 40 mg PO DAILY 09/30/20 07/05/24 glipizide 5 mg tablet 5 mg PO BID 12/09/21 07/05/24 metformin 500 mg tablet,extended 1,000 mg PO BID 07/15/22 07/05/24 release 24 hr insulin glargine 100 unit/mL (3 10 unit subcut QPM 12/05/23 07/05/24 mL) subcutaneous pen (Lantus Solostar U-100 Insulin) pyridoxine (vitamin B6) 50 mg 25 mg PO DAILY 07/05/24 07/05/24 tablet Previous Rx's ?Medication ?Instructions ?Recorded aspirin 81 mg tablet,delayed 81 mg PO DAILY 90 days #90 tabs 05/17/21 release blood sugar diagnostic (FreeStyle #50 ea 08/09/22 Lite Strips) blood-glucose meter (FreeStyle #1 ea 08/17/22 Lite Meter kit) metoprolol succinate 25 mg 25 mg PO DAILY 90 days #90 tabs 11/09/23 tablet,extended release 24 hr atorvastatin 40 mg tablet 40 mg PO DAILY #90 tabs 01/15/24 potassium citrate 10 mEq (1,080 20 meq (2 x 10 mEq (1,080 mg)) PO 02/12/24 mg) tablet,extended release BID 90 days #360 tabs allopurinol 100 mg tablet 100 mg PO DAILY 90 days #90 tabs 02/22/24 ezetimibe 10 mg tablet 10 mg PO DAILY #90 tabs 04/04/24 tamsulosin 0.4 mg capsule 0.4 mg PO BEDTIME 14 days #14 caps 04/10/24 Allergies Allergy/AdvReac Type Severity Reaction Status Date / Time No Known Allergies Allergy Verified 07/06/24 08:01 [No Known Allergies*] Review of Systems Review of Systems: Yes all other systems are reviewed and are negative PMFSH Past Medical History Medical History (Updated 07/06/24 @ 08:29 by CHITRA Iverson) Edema Wears partial dentures HTN (hypertension) Retained ureteral stent Ureteral stone with hydronephrosis Primary osteoarthritis of right knee Primary osteoarthritis of left knee CAD (coronary artery disease) Hyperlipidemia Diabetes mellitus Hx of renal calculi Hx of opioid abuse Surgical History (Updated 07/05/24 @ 14:22 by Abbie Watson RN) Hx of lithotripsy (04/10/24) S/P knee replacement Stented coronary artery Hx of total knee replacement Hx of hernia repair Hx of lithotripsy Hx of cystoscopy Family History Family History Father No problems noted. Mother No problems noted. 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 Oriented X3. No acute distress. Head: normocephalic, atraumatic. Eyes: Pupils equal, round and reactive to light. ENT: Pharynx normal. No tonsillar swelling or exudate. Neck: Normal inspection. Neck supple. CVS: Normal heart rate and rhythm. Pulses normal. Respiratory: No respiratory distress. Breath sounds normal. No wheezes or rhonchi. Abdomen: Softly distended and nontender. +BS x4 Skin: Skin warm and dry. Normal skin color. Normal skin turgor. No rashes. Extremities: R>L pitting lower extremity edema, 2+ on the right and 1+ on the left. No erythema or skin changes.. No joint swelling. Neuro/psych: Oriented X 3. No motor deficit. No sensory deficit. CN II-XII intact. Normal speech and cognition. Medical Decision Making Medical Decision Making MDM Narrative: 69 yo male presents to the ER for evaluation of 5-6 days of generalized weakness, lightheadedness and LE edema R>L. No hx CHF. Endorses SOB. VSS and lungs clear on exam. He has pitting edema of bilateral lower extremities. Lab workup is reassuring with stable anemia and thrombocytopenia. normal renal function w/ normal trop and BNP. CXR showing some scarring vs atelectasis, doubt PNA. LE U/S negative for DVT at this time workup is unremarkable and patient is stable for d/c home with outpatient follow up next week Differential Diagnosis Differential Diagnoses: The differential diagnosis associated with the presentation includes influenza, viral syndrome, acute CHF, volume overload, diabetic neuropathy Admission/Observation Consideration of admission/observation: Escalation of care including admission/observation considered Lab Data MDM Lab Attestation statement: I reviewed the patient's lab results. 07/06/24 08:13 07/06/24 08:13 Labs: Lab Results 07/06/24 Range/Units 08:13 WBC 7.8 (4.8-10.8) X10*3/uL RBC 4.05 L (4.60-5.80) X10*6/uL Hgb 12.5 L (14.0-18.0) g/dl Hct 36.4 L (42.0-52.0) % MCV 89.9 (80.0-98.0) fL MCH 30.9 (27.0-33.0) pg MCHC 34.3 (31.0-36.0) g/dl RDW 12.7 (11.0-16.0) % Plt Count 154 L (160-400) X10*3/uL MPV 10.1 (9.4-12.4) fL Immature Gran % (Auto) 0.3 (0.0-0.4) % Neut % (Auto) 52.8 (45-73) % Lymph % (Auto) 36.1 (20-40) % [place] % (Auto) 6.9 (2-11) % Eos % (Auto) 3.5 (0-4) % Baso % (Auto) 0.4 (0-2) % Lymph # (Auto) 2.8 (1.2-4.9) X10*3/uL [place] # (Auto) 0.5 (0.1-1.2) X10*3/uL Eos # (Auto) 0.3 (0.0-0.4) X10*3/uL Baso # (Auto) 0.0 (0.0-0.2) X10*3/uL Abs Immat Gran (auto) 0.02 (0.00-0.03) X10*3/uL Absolute Neuts (auto) 4.1 (2.0-8.3) x10*3/uL Absolute Nucleated RBC 0.000 (0.0-0.012) X10*3/uL Nucleated RBC % (auto) 0.0 (0.0-0.2) /100WBC Sodium 139 (135-145) mmol/L Potassium 5.2 H (3.3-5.1) mmol/L Chloride 107 (96-108) mmol/L Carbon Dioxide 24 (22-29) mmol/L Anion Gap 13 (12-20) BUN 14 (9-16) mg/dL Creatinine 1.02 (0.5-1.4) mg/dL Estim Creat Clear Calc 83.6 Estimated GFR > 60 Random Glucose 265 H (60-115) mg/dL Calcium 9.1 (8.4-10.2) mg/dL Total Bilirubin 0.7 (0.0-1.0) mg/dL AST 23 (5-37) U/L ALT 24 (0-40) U/L Alkaline Phosphatase 67 (39-117) U/L Troponin I High Sens 4.1 (<3.5-35.0) ng/L B-Natriuretic Peptide 47 (<100) pg/mL Total Protein 7.5 (6.5-8.0) g/dL Albumin 4.2 (3.5-5.0) g/dL Influenza Type A (PCR) NEGATIVE (Negative) Influenza Type B (PCR) NEGATIVE (Negative) RSV RNA Qual (PCR) NEGATIVE (Negative) SARS-CoV-2 RNA (RT-PCR) NEGATIVE (Negative) Independent Interpretation I performed an independent interpretation of an: EKG and Plain X-Ray Interpretation: ekg with normal sinus rhythm, hr 74, normal pr interval, normal qtc, no st segment elevations or depressions. cxr without focal infiltrate or effusion Radiology Impression Discussion of test interpretation with radiology: I have reviewed the radiologist's reading. External Record Review External record reviewed: Office record, Outpatient record, Prior outpatient labs and Prior outpatient radiology Prescription Management I considered prescription management with: Other (diuretic) Chronic Conditions Patient?s care impacted by: Diabetes, Hypertension and Other (CAD) Critical Care Time Critical Care Time Critical Care Time: No Discharge Plan Discharge Clinical Impression: Bilateral lower extremity edema Patient Disposition: Home, Self-Care Instructions: Leg Edema (ED) Additional Instructions: your workup today was unremarkable you tested negative for COVID, Flu and RSV your labs were reassuring recommend elevating your legs as much as possible. recommend compression stockings. cut down on salt in your diet follow up with your doctor next week If you develop new or worsening symptoms call 911 or come back to the ER for further evaluation. Prescriptions: No Action aspirin 81 mg tablet,delayed release (DR/EC) 81 mg PO DAILY 90 Days Qty: 90 1RF (DME) FreeStyle Lite Strips Strip See Rx Instructions .Route Qty: 50 5RF Rx Instructions: As directed checks 1 X/day (DME) blood-glucose meter [FreeStyle Lite Meter] Kit See Rx Instructions .Route Qty: 1 0RF Rx Instructions: As directed for blood sugar checks 1 X/day metoprolol succinate 25 mg tablet extended release 24 hr 25 mg PO DAILY 90 Days Qty: 90 3RF atorvastatin 40 mg tablet 40 mg PO DAILY Qty: 90 3RF potassium citrate 10 mEq (1,080 mg) tablet extended release 20 meq PO BID 90 Days Qty: 360 1RF ezetimibe 10 mg tablet 10 mg PO DAILY Qty: 90 3RF buprenorphine-naloxone [Suboxone] 8-2 mg film 2 strip sublingual DAILY fluoxetine 20 mg capsule 40 mg PO DAILY tamsulosin 0.4 mg capsule 0.4 mg PO BEDTIME 14 Days Qty: 14 0RF pyridoxine (vitamin B6) 50 mg tablet 25 mg PO DAILY glipizide 5 mg tablet 5 mg PO BID metformin 500 mg tablet extended release 24 hr 1,000 mg PO BID insulin glargine [Lantus Solostar U-100 Insulin] 100 unit/mL (3 mL) insulin pen 10 unit subcut QPM allopurinol 100 mg tablet 100 mg PO DAILY 90 Days Qty: 90 3RF Referrals: Quinten Pollock MD [Primary Care Provider] - Interventions: ED Discharge Assessment Last Done: 07/06/24 10:25 Discharge Date/Time: 07/06/24 10:25 Print Language: Croatian
[2024-07-06 08:17] LABS: MANUAL DIFF FLAG NO
[2024-07-06 08:21] LABS: Basophils Percent Auto 0.4 % (0-2); Eosinophils Absolute Auto 0.3 X10*3/uL (0.0-0.4); Eosinophils Percent Auto 3.5 % (0-4); Hematocrit 36.4 % (42.0-52.0); Hemoglobin 12.5 g/dl (14.0-18.0); Imm Gran Abs Auto 0.02 X10*3/uL (0.00-0.03); Imm Gran Pct Auto 0.3 % (0.0-0.4); Lymphocytes Absolute Auto 2.8 X10*3/uL (1.2-4.9); Lymphocytes Percent Auto 36.1 % (20-40); Mean Corpuscular HGB Conc 34.3 g/dl (31.0-36.0); Mean Corpuscular Hemoglobin 30.9 pg (27.0-33.0); Mean Corpuscular Volume 89.9 fL (80.0-98.0); Mean Platelet Volume 10.1 fL (9.4-12.4); Monocytes Absolute Auto 0.5 X10*3/uL (0.1-1.2); Monocytes Percent Auto 6.9 % (2-11); Neutrophils Absolute Auto 4.1 x10*3/uL (2.0-8.3); Neutrophils Percent Auto 52.8 % (45-73); Platelet Count 154 X10*3/uL (160-400); Red Blood Count 4.05 X10*6/uL (4.60-5.80); Red Cell Distribution Width 12.7 % (11.0-16.0); White Blood Count 7.8 X10*3/uL (4.8-10.8)
--- OUTSIDE RECORDS SUMMARY | 2024-07-06 08:30 | XMS_ITS | Patient Health Record ---
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) use of non-steroidal anti-inflammatorie s (NSAID) (Z79.1) Active confirmed 898630209 PLAN OF TREATMENT Future Test Test Name Order Date COLONOSCOPY 06/18/2020 Insurance Providers Payer Name Payer Address Payer Phone Subscriber Number Group Number Insured Name Patient Relationship to Insured Coverage Start Date Coverage End Date MEDICARE OF [place] [address] [place] [address] [id number] PRASANNA JOHANSEN Self - patient is the insured MEDICAID OF [facility] [address] [place] [address] [id number] PRASANNA JOHANSEN Self - patient is the insured MEDICAL (GENERAL) HISTORY Medical History History ICD Code elevated blood sugar nephrolithiasis opioid dependence Surgical History Surgery Date(Month/Year) right knee replacement 2019 left knee replacement kidney stones hernia
[2024-07-06 08:35] LABS: Alanine Aminotransferase 24 U/L (0-40); Albumin Level 4.2 g/dL (3.5-5.0); Alkaline Phosphatase 67 U/L (39-117); Anion Gap 13 (12-20); Aspartate Amino Transferase 23 U/L (5-37); Bilirubin Total 0.7 mg/dL (0.0-1.0); Blood Urea Nitrogen 14 mg/dL (9-16); Calcium 9.1 mg/dL (8.4-10.2); Carbon Dioxide 24 mmol/L (22-29); Chloride 107 mmol/L (96-108); Creatinine Clr Calc Pharmacy 83.6; Estimated Glomerular Filt Rate > 60; Glucose Random 265 mg/dL (60-115); Potassium 5.2 mmol/L (3.3-5.1); Sodium 139 mmol/L (135-145); Total Protein 7.5 g/dL (6.5-8.0)
[2024-07-06 08:39] LABS: B Type Natriuretic Peptide 47 pg/mL (<100)
[2024-07-06 08:56] LABS: Influenza A PCR NEGATIVE (Negative); Influenza B PCR NEGATIVE (Negative); Resp Syncy Virus RNA Qual PCR NEGATIVE (Negative); SARS COV2 PCR INHOUSE NEGATIVE (Negative)
[2024-07-06 09:14] LABS: Troponin-I High Sensitivity 4.1 ng/L (<3.5-35.0)
[2024-07-06 09:50] VITALS: BP 132/78; BP 151/91; PULSE 63; PULSE 69
[2024-07-06 09:51] VITALS: BP 157/93; PULSE 80
[2024-07-06 10:23] VITALS: BP 157/93; PULSE 80; RESP 16; TEMP 36.5; O2SAT 98
[2024-07-06 10:25] VITALS: BP 157/93; PULSE 80; RESP 16; TEMP 36.5; O2SAT 98
== END 2024-07-06 10:25 | disposition home or self-care (01) ==
PROVIDERS: Physician Assistant; Emergency Provider Emergency Medicine; PCP Internal Medicine
DX: R60.0 Localized edema (principal); R42 Dizziness and giddiness; I25.10 Atherosclerotic heart disease of native coronary artery without angina pectoris; R06.02 Shortness of breath; R94.31 Abnormal electrocardiogram [ECG] [EKG]; E11.9 Type 2 diabetes mellitus without complications; Z87.891 Personal history of nicotine dependence; Z79.3 Long term (current) use of hormonal contraceptives
CPT/HCPCS: 0241U; 71046; 80053; 83880; 84484; 85025; 93005; 93970; 99283; 99284

== ENCOUNTER → 2024-07-06 08:02 | Outpatient (BNV) | payer MEDICARE, MEDICAID, SELFPAY | PROVIDERS: Emergency Provider Emergency Medicine; PCP Internal Medicine; Visit Provider Internal Medicine Cardiovascular Disease | DX: R94.31 Abnormal electrocardiogram [ECG] [EKG] (principal); R42 Dizziness and giddiness | CPT/HCPCS: 93010 ==

== ENCOUNTER → 2024-07-06 08:27 | Outpatient (BNV) | payer MEDICARE, MEDICAID, SELFPAY | PROVIDERS: Emergency Provider Emergency Medicine; PCP Internal Medicine; Visit Provider Radiology Diagnostic Radiology | DX: R06.02 Shortness of breath (principal); R60.9 Edema, unspecified | CPT/HCPCS: 71046; 93970 ==

== ENCOUNTER → 2024-07-10 07:18 | Outpatient (BNV) | payer MEDICARE, MEDICAID, SELFPAY | PROVIDERS: PCP Internal Medicine; Visit Provider Radiology Diagnostic Radiology | DX: N20.0 Calculus of kidney (principal) | CPT/HCPCS: 74018 ==

== ENCOUNTER 2024-07-10 08:52 | Day surgery (SDC) | payer MEDICARE, MEDICAID, SELFPAY ==
[2024-07-05 14:26] VITALS: BMI 29.2
[2024-07-05 15:29] VITALS: BMI 29.8
--- NOTE | ~2024-07-10 | XR_ITS ---
EXAMINATION: XR ABDOMEN KUB CLINICAL INDICATION: left kidney stone COMPARISON: 04/10/2024. TECHNIQUE: AP view of the abdomen. FINDINGS: Bowel gas pattern is normal/nonspecific. Mildly limited by stool within the ascending and transverse colon. There are innumerable calcifications overlying the left renal shadow, largest measuring 7 mm in the interpolar region. There are several calcifications overlying the right kidney lower pole, largest measuring 3 mm. No additional calcifications identified aside from mild vascular calcification. Lung bases appear clear. Mild dextroconvex lumbar scoliosis with moderate degenerative spondylosis. Normal hip joints. No suspicious bone lesion. XR/XR KUB IMPRESSION: 1. Numerous left renal calculi, largest measuring 7 mm. 2. Several right renal calculi, largest measuring 3 mm. Electronically signed by: Anderson Valenzuela MD 07/10/2024 09:33 AM [facility] [place]
--- NOTE | 2024-07-10 09:25 | MHC.SHP ---
Pre-Procedural Eval Section A - 24 Hr Update-Section A only Date of Service: 07/10/24 The patient is an INPATIENT: No Changes since office visit: No Cold of Flu in the past 2 weeks, No New Medical Problems, No Changes in Medication and No Patient answered all questions The patient has been examined within 24 hours of the surgical procedure. The History & Physical has been completed within 30 days and I have reviewed it.: Yes Section B - Complete if H&P > 30 days Chief Complaint: Calculus of kidney Details of Present Illness: left 7mm stone Allergies: Allergies Allergy/AdvReac Type Severity Reaction Status Date / Time No Known Allergies Allergy Verified 07/06/24 08:01 [No Known Allergies*] Plan Diagnosis/Plan: Unchanged (left eswl 7mm) I have reviewed the history and physical and performed a pertinent physical examination on my patient. No changes have occurred unless specified. Time Spent With Patient Time: Total time managing care of this patient today ____ minutes.
[2024-07-10 09:31] VITALS: BP 146/89; PULSE 78; RESP 16; TEMP 36.7; O2SAT 95
[2024-07-10] MEDS: Acetaminophen 1,000 MG/100 ML PIGGYBACK 400 MG IV (09:36)
[2024-07-10] MEDS: Lactated Ringers 1,000 ML 999 ML IV (09:36)
[2024-07-10 09:43] LABS: Glucose, Whole Blood 193 mg/dL (60-115)
--- NOTE | 2024-07-10 09:53 | P.CONAN_ITS ---
HPI - Anesthesia Eval Consult details Narrative: for lithotripsy PMFSH Active Problems Active Problems: All Active Problems Primary osteoarthritis, right ankle and foot (Acute) Nephrolithiasis (Acute) Abnormal nuclear stress test (Acute) SOB (shortness of breath) on exertion (Acute) HTN (hypertension) (Acute) CAD (coronary artery disease) (Acute) Hyperlipidemia (Acute) Diabetes mellitus (Acute) Past Medical History Medical History Edema Wears partial dentures HTN (hypertension) Retained ureteral stent Ureteral stone with hydronephrosis Primary osteoarthritis of right knee Primary osteoarthritis of left knee CAD (coronary artery disease) Hyperlipidemia Diabetes mellitus Hx of renal calculi Hx of opioid abuse Family History Family History Father No problems noted. Mother No problems noted. 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 Meds Allergies Allergy/AdvReac Type Severity Reaction Status Date / Time No Known Allergies Allergy Verified 07/10/24 09:31 [No Known Allergies*] Active Medications: Current Medications Lactated Ringer's (Lr) 1,000 mls @ 50 mls/hr IVCONT .Q20H DANYEL Home Medications ?Medication ?Instructions ?Recorded ?Confirmed ?Last Taken ?Type buprenorphine 8 mg-naloxone 2 mg 2 strip sublingual DAILY 06/24/20 07/05/24 06/30/20 09:30 History sublingual film (Suboxone) fluoxetine 20 mg capsule 40 mg PO DAILY 09/30/20 07/05/24 Unknown History glipizide 5 mg tablet 5 mg PO BID 12/09/21 07/05/24 Unknown History metformin 500 mg tablet,extended 1,000 mg PO BID 07/15/22 07/05/24 Unknown History release 24 hr insulin glargine 100 unit/mL (3 10 unit subcut QPM 12/05/23 07/05/24 Unknown History mL) subcutaneous pen (Lantus Solostar U-100 Insulin) pyridoxine (vitamin B6) 50 mg 25 mg PO DAILY 07/05/24 07/05/24 Unknown History tablet Exam Height,Weight and Vital Signs: Height 6 ft Weight 99.79 kg Last Vital Signs Temp 98.1 F 07/10/24 09:31 Pulse 78 07/10/24 09:31 Resp 16 07/10/24 09:31 BP 146/89 H 07/10/24 09:31 Pulse Ox 95 07/10/24 09:31 O2 Del Method Room Air 07/10/24 09:31 Pertinent Lab Results Pertinent Lab Results: Laboratory Tests 07/10/24 09:39 POC Glucose 193 H Airway Mallampati Class: III TM Dist: >3cm Neck ROM: Full Heart: rrr Lungs: cta Assessment and Plan Assessment Anesthesia Assessment: Anesthesia Plan Discussed Final Anesthetic Review Family History of Problems with Anesthesia: No History of Problems with Anesthesia: No NPO: Yes ASA Class: III Final Preanesthetic Review: No Changes in Pt Med Stat, Meds/Allgs Chart Reviewed, Consent Obtained/Reviewed and Anes Risks/Benef Reviewed Patient Risk: Intermediate Procedure Risk: Low Anesthetic Plan Anesthetic Plan: MAC: Disposition: Standard PACU
--- NOTE | 2024-07-10 10:17 | W.PM.OPN ---
Operative Note Operative Note Date of Service: 07/10/24 Narrative: PreOperative Diagnosis: Left Renal stones Post Operative Diagnosis: Left Renal stones Procedure: Left ESWL Surgeon: Dr Joesph Subramanian Anesthesia: mac/sedation Indications for procedure: The patient understands ESWL may be a staged procedure and subsequent intervention may be required based on imaging after ESWL. Quoted stone clearance rates for a solitary procedure are in the 70-80% range based primarily on stone location. They also understand there is a risk of bleeding to the kidney, infection, damage to adjacent organs, and stone migration following the procedure. - Imaging left 7 mm mid pole Procedure optimization has been performed with IV acetaminophen given in the holding area and 1 L of lactated Ringer's to be given in order to optimize the fluid-stone interface. 20 mg of IV Lasix will be given in the last 5 minutes of the procedure to optimize stone clearance. Procedure: After informed consent was verified the patient was brought to the operating room and placed in a supine position. Anesthesia was performed per protocol. Safety pause time-out was performed. Imaging was displayed in the room and laterality confirmed. ESWL was performed. The 1st 500 shocks were performed at 60 hertz. These were performed with increasing power. Once maximum power was reached the rate was increased to 180 hertz. A total of 2500 shocks were given. Targeted imaging with ultrasound/fluoroscopy showed stone smudging suggestive of disintegration. The patient tolerated the procedure well and was transferred to the recovery area upon completion. Post procedure imaging will be organized. There was no evidence for flank discoloration.
[2024-07-10 10:38] VITALS: BP 104/60; PULSE 83; RESP 18; TEMP 36.6; O2SAT 93
[2024-07-10 10:43] VITALS: BP 113/70; PULSE 79; RESP 18; O2SAT 93
[2024-07-10 10:48] VITALS: BP 104/75; PULSE 73; RESP 18; O2SAT 95
[2024-07-10 10:53] VITALS: BP 112/69; PULSE 73; RESP 18; TEMP 36.6; O2SAT 95
[2024-07-10 11:08] VITALS: BP 110/68; PULSE 70; RESP 20; TEMP 36.6; O2SAT 95
== END 2024-07-10 11:10 | disposition home or self-care (01) ==
PROVIDERS: PCP Internal Medicine; Visit Provider Urology
PROC: (CPT 50590; principal; 2024-07-10 10:00)
DX: N20.0 Calculus of kidney (principal); Z87.442 Personal history of urinary calculi; Z96.0 Presence of urogenital implants; I10 Essential (primary) hypertension; I25.10 Atherosclerotic heart disease of native coronary artery without angina pectoris; Z95.5 Presence of coronary angioplasty implant and graft; E78.5 Hyperlipidemia, unspecified; E11.9 Type 2 diabetes mellitus without complications; F11.11 Opioid abuse, in remission; Z96.653 Presence of artificial knee joint, bilateral; Z79.891 Long term (current) use of opiate analgesic; Z79.4 Long term (current) use of insulin; Z79.84 Long term (current) use of oral hypoglycemic drugs; Z79.82 Long term (current) use of aspirin; Z79.1 Long term (current) use of non-steroidal anti-inflammatories (NSAID); Z79.899 Other long term (current) drug therapy; Z87.891 Personal history of nicotine dependence; Z98.890 Other specified postprocedural states
CPT/HCPCS: 50590; 74018; 82947; J0131; J1940; J2003; J2250; J2704; J3010

== ENCOUNTER → 2024-07-10 08:52 | Outpatient (BNV) | payer MEDICARE, MEDICAID, SELFPAY | PROVIDERS: PCP Internal Medicine; Visit Provider Urology | DX: N20.0 Calculus of kidney (principal) | CPT/HCPCS: 50590 ==

== ENCOUNTER 2024-08-05 12:22 | Outpatient (REF) | payer MEDICARE, MEDICAID, SELFPAY ==
--- NOTE | ~2024-08-05 | US_ITS ---
CLINICAL HISTORY: N20.0 - Calculus of kidney US Renal Comparison: US/SR - US RENAL BI - 05/17/24 13:02 EST Findings: Right kidney normal size and echotexture, 11.4 cm length. Left kidney normal size and echotexture, 11.6 cm length. No hydronephrosis of either kidney. Normal color Doppler. There are multiple calculi within the right kidney. The largest is a 1.2 cm calculus within the midportion. There are multiple calculi within the left kidney. The largest is a 1.4 cm calculus within the upper pole. There is a 2.1 cm cyst within the upper pole of the left kidney. IMPRESSION: 1. There are multiple nonobstructive calculi within the bilateral kidneys. This document has been electronically signed by: Kiah López MD on 08/06/2024 15:05:52
--- OUTSIDE RECORDS SUMMARY | 2024-08-05 14:29 | XMS_ITS | Patient Health Record ---
Author Organization [facility] Address [address] [place] [address] Care Team Providers Care Buggy Runner Name Role Phone Quinten Pollock MD Primary Care Provider UnavailMani Lowery Jr Unavailable Reason For Referral No Information Medications Medication SIG (Take, Route, Frequency, Duration) Notes [...] 500 MG TAKE 1 TABLET BY MO UT EVERY DAY Oral for 30 Active Aleve 220 MG 1 tablet with food o r milk as needed Orally every 12 hrs Active Suboxone 8-2 MG (Schedule III Drug) DISSOLVE 2 FILMS UNDER THE TONGUE ONCE A DAY Sublingual for 7 Active Immunizations Vaccine Route Administration Date Status Comme nts Influenza Unknown 06/18/2020 Refused Social History Tobacco Use: Social History Observation Description Date Details (start date - stop date) Former Smoker NA - NA Tobacco Use/Smoking Question Answer Notes Patient is a former smoker How long has it been since you last smoked? 1-5 years Alcohol Screen Question Answer Notes Did you have a drink containing alcohol in the p ast year? No Points 0 Interpretation Negative Problems Problem Type SNOMED Code ICD Code Onset Dates Problem Status W/U Status Risk Notes Problem 447898991 Colon cancer screening (Z12.11) Active confirmed Problem 343470059 [facility] (current) use of non-steroidal anti-inflammatorie s (NSAID) (Z79.1) Active confirmed Problem 953797886 Encounter for other preprocedural examination (Z01.818) Active confirmed Plan Of Treatment Future Test Test Name Order Date COLONOSCOPY 06/18/2020 Insurance Providers Payer Name Payer Address Payer Phone Subscriber Number Group Number Insured Name Patient Relationship to Insured Coverage Start Date Coverage End Date MEDICARE OF [place] [address] [place] [address] [id number] PRASANNA JOHANSEN Self - patient is the insured MEDICAID OF [facility] [address] [place] [address] [id number] PRASANNA JOHANSEN Self - patient is the insured Medical (General) History Medical History History ICD Code elevated blood sugar nephrolithiasis opioid dependence Surgical History Surgery Date(Month/Year) right knee replacement 2019 left knee replacement kidney stones hernia
== END 2024-08-05 12:23 | disposition home or self-care (01) ==
LOC: HO.US 12:22
PROVIDERS: PCP Internal Medicine; Visit Provider Urology
DX: N20.0 Calculus of kidney (principal)
CPT/HCPCS: 76775

== ENCOUNTER → 2024-08-05 12:24 | Outpatient (BNV) | payer MEDICARE, MEDICAID, SELFPAY | PROVIDERS: PCP Internal Medicine; Visit Provider Radiology Diagnostic Radiology | DX: N20.0 Calculus of kidney (principal) | CPT/HCPCS: 76775 ==

== ENCOUNTER 2024-08-14 15:43 | Outpatient (AMB) | payer MEDICARE, MEDICAID, SELFPAY ==
--- NOTE | 2024-08-14 15:47 | MHC.PC.OV ---
Vital Signs 08/14/24 15:53 Height 6 ft Weight 221 lb BMI 30.0 BP 128/78 Respiration 16 Pulse 72 Pulse Source Pulse Oximeter Temp 97.8 F Temp Source Temporal Artery Scan Pulse Oximetry (%) 97 Oxygen Delivery Method Room Air Intake Visit Reasons: Routine Justice Court Deputy Clerk Required: No Accompanied by: Self / Same As Patient Allergies No Known Allergies [No Known Allergies*] Allergy (Verified 08/14/24 15:47) Tobacco use date assessed: 08/14/24 Fall risk assessment: No Falls in past year Last assessed Fall Risk: 08/14/24 Dental Screening Dental Screen Date: 08/14/24 Did you have a dental visit in the last 12 months?: No Did you have a dental problem in the last 6 months where you did not have access to dental care?: No PFSH Medical History Edema Wears partial dentures HTN (hypertension) Retained ureteral stent Ureteral stone with hydronephrosis Primary osteoarthritis of right knee Primary osteoarthritis of left knee CAD (coronary artery disease) Hyperlipidemia Diabetes mellitus Hx of renal calculi Hx of opioid abuse Surgical History Hx of lithotripsy (04/10/24) S/P knee replacement Stented coronary artery Hx of total knee replacement Hx of hernia repair Hx of lithotripsy Hx of cystoscopy Family History Father No problems noted. Mother No problems noted. 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 1. Little interest or pleasure in doing things: not at all 2. Feeling down, depressed, or hopeless: not at all 3. Trouble falling or staying asleep, or sleeping too much: not at all 4. Feeling tired or having little energy: not at all 5. Poor appetite or overeating: not at all 6. Feeling bad about yourself - or that you are a failure or have let yourself or your family down: not at all 7. Trouble concentrating on things, such as reading the newspaper or watching television: not at all 8. Moving or speaking so slowly that other people could have noticed. Or the opposite - being so fidgety or restless that you have been moving around a lot more than usual: not at all 9. Thoughts that you would be better off or of hurting yourself in some way: not at all Total score: 0 Source: Developed by Drs. Keegan Edwards, Jane Sandoval, Merritt Felix and colleagues, with an educational sahil from [employer]. Thrive Questionnaire Date Thrive assessed: 08/14/24 I am a: Patient What is your living situation today?: I have a steady place to live Within the past 12 months, did the food you bought not last and you didn't have the money to get more?: Never true Within the past 12 months, did you worry whether your food would run out before you got money to buy more?: Never true Do you have trouble paying for medicines?: No Do you have trouble getting transportation to medical appointments?: No Do you have trouble paying your heating and electricity bill?: No Do you have trouble taking care of your child, family member or friend?: No Do you have trouble with day-to-day activities such as bathing, preparing meals, shopping, managing finances, etc.?: No Are you currently unemployed and looking for a job?: No Are you interested in more education?: No Please select the resources that you would like help with: None THRIVE Score: 0 AUDIT C Alcohol Use Questionnaire (AUDIT-C) 1. How often do you have a drink containing alcohol?: Never 3. How often do you have six or more drinks on one occasion?: Never Total Score: 0 FATUMA-7 AMB Questionnaire FATUMA-7 Date FATUMA - 7 assessed: 08/14/24 Feeling nervous, anxious, or on edge: 0 = Not at all Not being able to stop or control worryin = Not at all Worrying too much about different things: 0 = Not at all Trouble relaxin = Not at all Being so restless that it is hard to sit still: 0 = Not at all Becoming easily annoyed or irritable: 0 = Not at all Feeling afraid as if something awful might happen: 0 = Not at all Total FATUMA-7 score (0-4 normal; 5-9 mild; 10-14 moderate; 15-21 severe): 0 Source: Developed by Drs. Keegan Edwards, Jane Sandoval, Merritt Felix and colleagues, with an educational sahil from [employer]. Physical exam (Primary Care) Vital Signs: Last Vital Signs Temp 97.8 F 08/14/24 15:53 Pulse 72 08/14/24 15:53 Resp 16 08/14/24 15:53 BP 128/78 08/14/24 15:53 Pulse Ox 97 08/14/24 15:53 Oxygen Delivery Method Room Air 08/14/24 15:53 BMI result Body Mass Index 30.0 Tobacco/Smoking Status: Tobacco use Status Tobacco use date assessed 08/14/24 08/14/24 15:50 Patient Tobacco Use Status Former Tobacco user 08/14/24 16:00 Tobacco use type Cigarette 08/14/24 16:00 PHQ-9: PHQ-9 Score PHQ-9: Total score 0 08/14/24 15:50 Thrive Assessment: Date of Thrive Assessment Date Thrive assessed 08/14/24 08/14/24 15:50 Coding Level of Care Code New Pt Level 4 (11244) Complex EM visit Add On G2211 Diagnoses Deep vein thrombosis I82.409 Assessment & Plan Assessment & Plan (1) Deep vein thrombosis: Code(s): I82.409 - Acute embolism and thrombosis of unspecified deep veins of unspecified lower extremity Plan Lasix started. US of the leg ordered. History of Present Illness The patient is a 69-year-old male presenting with swelling of the lower extremities. The swelling affects primarily the right leg, with noticeable increase upon waking which then worsens throughout the day. The patient reports past episodes severe enough to obstruct fitting into socks or shoes, though there has been some recent improvement. No specific interventions prior to today have been utilized for swelling. A brief evaluation in the emergency department with ultrasound occurred approximately two and a half months ago, primarily performed to rule out deep vein thrombosis, preceding a lithotripsy procedure. The patient has undergone lithotripsy on both kidneys, experiencing significant bleeding from the right but not the left kidney, revealing an evident discrepancy post-procedurally regarding known kidney stone prevalence. Social History - Family: Son resides in [place] and works as a Registered Nurse in an emergency department. - Travel: Recently traveled to [place], approximately four [address], within the last few months. Review of Systems - Respiratory: Reports slight difficulty breathing. Physical Exam General: Appearance normal, both eyes and all related structures Nutritional Appearance: Well nourished Orientation/consciousness: Patient oriented x3 Limitations: No limitations Head: Normal to inspection Neck: Normal visual inspection Chest: Normal palpation of entire chest wall Respiratory: Slight difficulty breathing noted Neurology: Patient oriented x3 Results Plan I will conduct an ultrasound to evaluate the presence of deep vein thrombosis in the right leg and order blood work to understand the cause of the swelling. A morning diuretic therapy with Lasix is initiated to minimize the fluid accumulation. These interventions will allow for a careful reassessment of the condition, leading to fine-tuning of the therapeutic approach at the follow-up next month. Patient was informed and verbally consented to the use of an ambient scribe for clinic note documentation during this visit. Discussion Notes During our discussion, I explained the tentative diagnosis of possible venous insufficiency as the underlying cause of the swelling, particularly in the right leg. I have recommended diagnostic blood work and scheduled an ultrasound to further explore the condition. The initiation of Lasix was proposed for its efficacy in reducing fluid retention, emphasizing the importance of morning administration. The patient was advised of potential side effects, such as increased urination, and was amenable to these management strategies. We discussed the continuation of monitoring and reevaluation in the upcoming month at the previously scheduled appointment. Patient consented to the current management plan, and return precautions were also reviewed. Patient Instructions - Take Lasix as prescribed, in the morning to avoid sleep disturbances. - Monitor for changes in swelling and report any new or worsening symptoms. - Attend scheduled follow-up for further evaluation and treatment adjustments. - Seek medical attention if there is sudden worsening of swelling, pain, or difficulty breathing. Orders: Orders US venous duplex LE RT Today I82.409 - Acute embolism and thrombosis of unspecified deep veins of unspecified lower extremity Medications: New furosemide 20 mg PO DAILY 30 tabs 0RF
[2024-08-14 15:53] VITALS: BP 128/78; PULSE 72; RESP 16; TEMP 36.6; O2SAT 97
--- OUTSIDE RECORDS SUMMARY | 2024-08-14 18:44 | XMS_ITS | Patient Health Record ---
Author Organization [facility] Address [address] [place] [address] Care Team Providers Care First Coat Sander Name Role Phone Quinten Pollock MD Primary Care Provider UnavailMani Lowery Jr Unavailable [phone] Reason For Referral No Information Medications Medication [...] Problem Status W/U Status Risk Notes Problem 529647179 Colon cancer screening (Z12.11) Active confirmed Problem 922575998 care home (current) use of non-steroidal anti-inflammatorie s (NSAID) (Z79.1) Active confirmed Problem 820542449 Encounter for other preprocedural examination (Z01.818) Active confirmed Plan Of Treatment Future Test Test Name Order Date COLONOSCOPY 06/18/2020 Insurance Providers Payer Name Payer Address Payer Phone Subscriber Number Group Number Insured Name Patient Relationship to Insured Coverage Start Date Coverage End Date MEDICARE OF [place] [address] [place] [id number] PRASANNA JOHANSEN Self - patient is the insured MEDICAID OF [facility] [address] [place] [address] [id number] PRASANNA JOHANSEN Self - patient is the insured Medical (General) History Medical History History ICD Code elevated blood sugar nephrolithiasis opioid dependence Surgical History Surgery Date(Month/Year) right knee replacement 2019 left knee replacement kidney stones hernia
== END 2024-08-14 16:11 | disposition home or self-care (01) ==
LOC: HO.HMCHD 15:44
PROVIDERS: PCP Internal Medicine; Visit Provider Internal Medicine
DX: I82.409 Acute embolism and thrombosis of unspecified deep veins of unspecified lower extremity (principal)

== ENCOUNTER → 2024-08-14 15:43 | Outpatient (BNVA) | payer MEDICARE, MEDICAID, SELFPAY | PROVIDERS: PCP Internal Medicine; Visit Provider Internal Medicine | DX: R60.0 Localized edema (principal) | CPT/HCPCS: 99202 ==

== ENCOUNTER 2024-08-19 13:09 | Outpatient (REF) | payer MEDICARE, MEDICAID, SELFPAY ==
[2024-08-19 14:26] LABS: Hematocrit 41.5 % (42.0-52.0); Hemoglobin 13.8 g/dl (14.0-18.0); Mean Corpuscular HGB Conc 33.3 g/dl (31.0-36.0); Mean Corpuscular Hemoglobin 30.1 pg (27.0-33.0); Mean Corpuscular Volume 90.6 fL (80.0-98.0); Mean Platelet Volume 10.5 fL (9.4-12.4); Platelet Count 163 X10*3/uL (160-400); Red Blood Count 4.58 X10*6/uL (4.60-5.80); White Blood Count 6.8 X10*3/uL (4.8-10.8)
[2024-08-19 14:48] LABS: Appearance Urine Clear; Color Urine Yellow; Glucose Urine UA Negative (Negative); Leukocyte Esterase Urine Negative (Negative); Nitrite Urine Negative (Negative); PH 5.5 (5.0-9.0); Urine Blood Negative (Negative); Urine Ketones Negative (Negative); Urine Protein Trace mg/dL (Neg-Trace)
--- OUTSIDE RECORDS SUMMARY | 2024-08-19 14:51 | XMS_ITS | Patient Health Record ---
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) use of non-steroidal anti-inflammatorie s (NSAID) (Z79.1) Active confirmed Problem 920216982 Encounter for other preprocedural examination (Z01.818) Active confirmed Plan Of Treatment Future Test Test Name Order Date COLONOSCOPY 06/18/2020 Insurance Providers Payer Name Payer Address Payer Phone Subscriber Number Group Number Insured Name Patient Relationship to Insured Coverage Start Date Coverage End Date MEDICARE OF [place] [address] [place] [address] [id number] PRASANNA JOHANSEN Self - patient is the insured MEDICAID OF [facility] [address] [place] [address] [id number] PRASANNA JOHANSEN Self - patient is the insured Medical (General) History Medical History History ICD Code elevated blood sugar nephrolithiasis opioid dependence Surgical History Surgery Date(Month/Year) right knee replacement 2019 left knee replacement kidney stones hernia
[2024-08-19 14:58] LABS: Alanine Aminotransferase 36 U/L (0-40); Albumin Level 4.2 g/dL (3.5-5.0); Anion Gap 14 (12-20); Aspartate Amino Transferase 28 U/L (5-37); Bilirubin Direct 0.3 mg/dL (0.0-0.5); Bilirubin Total 0.9 mg/dL (0.0-1.0); Blood Urea Nitrogen 19 mg/dL (9-16); Calcium 9.9 mg/dL (8.4-10.2); Carbon Dioxide 28 mmol/L (22-29); Chloride 106 mmol/L (96-108); Cholesterol 127 mg/dL (<200); Estimated Glomerular Filt Rate > 60; Glucose Random 209 mg/dL (60-115); HDL Cholesterol 42 mg/dL (>40); LDL Cholesterol Calculated 63 mg/dL (<100); Potassium 5.1 mmol/L (3.3-5.1); Sodium 143 mmol/L (135-145); Total Protein 7.4 g/dL (6.5-8.0); Triglycerides 113 mg/dL (<150)
[2024-08-19 15:11] LABS: Alkaline Phosphatase 67 U/L (39-117)
[2024-08-19 15:17] LABS: Thyroid Stimulating Hormone 1.03 uIU/mL (0.32-4.0)
[2024-08-30 08:54] LABS: Testosterone, Free 37.8 pg/mL (35.0-155.0); Testosterone, Total 372 ng/dL (250-1100)
== END 2024-08-19 13:10 | disposition home or self-care (01) ==
LOC: HO.LAB 13:09
PROVIDERS: PCP Internal Medicine; Visit Provider Internal Medicine
DX: I10 Essential (primary) hypertension (principal); E11.9 Type 2 diabetes mellitus without complications
CPT/HCPCS: 36415; 80048; 80061; 80076; 81003; 84402; 84403; 84443; 85027

== ENCOUNTER 2024-08-20 10:13 | Outpatient (AMB) | payer MEDICARE, MEDICAID, SELFPAY ==
--- NOTE | 2024-08-20 10:16 | A.OFFVIS_ITS ---
Intake Visit Reasons: ESWL- follow up/US Intake Note: Patient is present for ESWL/US Urology Medication:POPTASSIUM,VITAMIN B 6,ALLOPURINOL Antibiotic Allergy:NONE Blood Thinner:ASPIRIN Sleeve Setter Required: No Allergies No Known Allergies [No Known Allergies*] Allergy (Verified 10/09/24 14:24) HPI Comments Details: Abhay is a pleasant male. He is a patient of Dr. Pollock. He is seen for the following urologic conditions. - nephrolithiasis Completed bilaterally ESWL Imaging with greatly reduced stones Previously discussed lemon water therapy Nephrolithiasis Longstanding - Prior intervention for distal ureteric stone Current therapy includes vitamin B6 and potassium citrate Imaging - 01/09 renal ultrasound bilateral 5 mm stones - 08/10 renal ultrasound bilateral small stones - 02/10 renal ultrasound bilateral mm stones - 02/11 renal ultrasound bilateral 5 mm stones - 08/12 renal ultrasound bilateral 4 mm stones - 02/12 renal ultrasound right side 9, 7 - left side 7 mm - 05/14 renal ultrasound right side 4 mm, left side 7 mm - 08/13 renal ultrasound multiple small stones bilateral Stone composition - 08/12 calcium oxalate monohydrate Intervention - 04/14 R ESWL 24 hour urine - good volume, high oxalate, high citrate, high sodium Concurrent diagnoses diabetes uncontrolled Continue surveillance imaging [facility] Medical History Edema Wears partial dentures HTN (hypertension) Retained ureteral stent Ureteral stone with hydronephrosis Primary osteoarthritis of right knee Primary osteoarthritis of left knee CAD (coronary artery disease) Hyperlipidemia Diabetes mellitus Hx of renal calculi Hx of opioid abuse Surgical History History of colonoscopy (~06/30/20) Hx of lithotripsy (04/10/24) S/P knee replacement Stented coronary artery Hx of total knee replacement Hx of hernia repair Hx of lithotripsy Hx of cystoscopy Family History (Updated 10/09/24 @ 15:49 by Melly Painting MA) Father No problems noted. Mother No problems noted. 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 Cognitive needs: No Hearing needs: No Vision needs: Yes (reading glasses) Review of Systems Const Denies chills and Denies fever(s) Card Reports no additional complaints and Denies syncope Resp Denies cough GI Denies abdominal pain and Denies heartburn Reports as per HPI and Denies change in libido Neuro Denies syncope Psych Denies change in libido Endo Denies change in libido Physical Exam Const General: cooperative, healthy appearing, comfortable and no acute distress Orientation/consciousness: patient oriented x3 HEENT Face and sinus: Yes normal facial exam Mouth: moist mucous membranes Neck Neck: Yes normal visual inspection, Yes full ROM and Yes trachea midline Chest Chest palpation & inspection: normal inspection of the chest Resp Effort & Inspection: normal respiratory effort, able to speak in complete sentences and no respiratory distress GI Inspection: Yes normal to inspection Back/Spine/Pelvis Cervical Spine: normal cervical lordosis Thoracic/Lumbar Spine: thoracic and lumbar spine normal to inspection Skin General skin exam: no rashes or lesions noted Neuro General: patient oriented x3, gait normal, tone normal and moves all extremities Extrem General: Yes normal to inspection and Yes capillary refill normal Assessment & Plan Assessment & Plan (1) Nephrolithiasis: Code(s): N20.0 - Calculus of kidney Category: Medical Plan Six-month follow-up imaging Potassium citrate Orders: Orders XR KUB 6 Months N20.0 - Calculus of kidney Medications: Refilled potassium citrate ER 20 mEq (2 x 10 mEq (1,080 mg)) PO BID 360 tabs 1RF 90 days N20.0 - Calculus of kidney Patient Instructions: This note is constructed using voice recognition software. While every effort has been made to ensure accuracy zipper cutter errors may have been included. Imaging studies, laboratory and physical exam results were discussed and reviewed in detail. No major barriers to patient understanding were identified. An opportunity to ask questions regarding the treatment plan was provided. All questions were answered. The patient expressed understanding and agreement with the above treatment plan. The patient is aware they should contact our office by phone for worsening of their current condition or the appearance of new urologic symptoms. Compliance is encouraged with any medications and followup testing that is ordered. It is a privilege to participate in the urologic care of your patient. If you have any questions or concerns regarding treatment for the above conditions, or other urologic issues, please do not hesitate to contact me. The office telephone contact is [phone]. Sincerely, Dr Joesph Subramanian MD, [facility] - Urology Compassionate Specialist Care for the Genitourinary System Coding Level of Care Code Est Pt Level 3 (42696) Complex EM visit Add On G2211 Diagnoses Nephrolithiasis N20.0
--- OUTSIDE RECORDS SUMMARY | 2024-08-20 11:58 | XMS_ITS | Patient Health Record ---
Author Organization [facility] Address [address] [place] [address] Care Team Providers Care Correctional Casework Specialist Name Role Phone Quinten Pollock MD Primary Care Provider UnavailMani Lowery Jr Unavailable [phone] Reason For Referral No Information Medications Medication [...] Problem Status W/U Status Risk Notes Problem 399849641 Colon cancer screening (Z12.11) Active confirmed Problem 653093416 nursing home (current) use of non-steroidal anti-inflammatorie s (NSAID) (Z79.1) Active confirmed Problem [id number] Encounter for other preprocedural examination (Z01.818) Active confirmed Plan Of Treatment Future Test Test Name Order Date COLONOSCOPY 06/18/2020 Insurance Providers Payer Name Payer Address Payer Phone Subscriber Number Group Number Insured Name Patient Relationship to Insured Coverage Start Date Coverage End Date MEDICARE OF [place] [address] [place] [address] [phone] [id number] PRASANNA JOHANSEN Self - patient is the insured MEDICAID OF [facility] [address] [place] [address] [id number] PRASANNA JOHANSEN Self - patient is the insured Medical (General) History Medical History History ICD Code elevated blood sugar nephrolithiasis opioid dependence Surgical History Surgery Date(Month/Year) right knee replacement 2019 left knee replacement kidney stones hernia
== END 2024-08-20 11:03 | disposition home or self-care (01) ==
LOC: HO.HUSH 10:13
PROVIDERS: PCP Internal Medicine; Visit Provider Urology
DX: N20.0 Calculus of kidney (principal)
CPT/HCPCS: 99024

== ENCOUNTER → 2024-08-20 10:13 | Outpatient (BNVA) | payer MEDICARE, MEDICAID, SELFPAY | PROVIDERS: PCP Internal Medicine; Visit Provider Urology | DX: N20.0 Calculus of kidney (principal) | CPT/HCPCS: 99212 ==

== ENCOUNTER 2024-08-27 12:17 | Outpatient (REF) | payer MEDICARE, MEDICAID, SELFPAY ==
--- NOTE | ~2024-08-27 | US_ITS ---
EXAMINATION: US TRIPLEX LOWER EXTREMITY, RIGHT CLINICAL INFORMATION: Edema, right lower extremity COMPARISON: None available. TECHNIQUE: Color-flow triplex imaging with spectral analysis and compression Doppler were performed on the right lower extremity. FINDINGS: Respiratory variation, normal compression and augmented flow are noted throughout the interrogated common femoral vein, superficial femoral vein, profunda femoral vein, popliteal vein and midcalf peroneal and posterior tibial venous segments. There is no Davis's cyst. US/US venous duplex LE RT IMPRESSION: No acute deep venous thrombosis involving the right lower extremity. Negative for DVT. Electronically signed by: Jourdan Martines MD 08/27/2024 01:10 PM EDT
--- OUTSIDE RECORDS SUMMARY | 2024-08-27 14:54 | XMS_ITS | Patient Health Record ---
Author Organization [facility] Address [address] [place] [address] Care Team Providers Care Pipe Threader Name Role Phone Quinten Pollock MD Primary Care Provider UnavailMani Lowery Jr Unavailable [phone] Reason For Referral No Information Medications Medication [...] Problem Status W/U Status Risk Notes Problem [id number] Colon cancer screening (Z12.11) Active confirmed Problem 902474536 long-term (current) use of non-steroidal anti-inflammatorie s (NSAID) (Z79.1) Active confirmed Problem 752636506 Encounter for other preprocedural examination (Z01.818) Active confirmed Plan Of Treatment Future Test Test Name Order Date COLONOSCOPY 06/18/2020 Insurance Providers Payer Name Payer Address Payer Phone Subscriber Number Group Number Insured Name Patient Relationship to Insured Coverage Start Date Coverage End Date MEDICARE OF [place] [address] [place] [address] [id number] PRASANNA JOHANSEN Self - patient is the insured MEDICAID OF [facility] [address] [place] [address] [id number] PRASANNA JOHANSEN Self - patient is the insured Medical (General) History Medical History History ICD Code elevated blood sugar nephrolithiasis opioid dependence Surgical History Surgery Date(Month/Year) right knee replacement 2019 left knee replacement kidney stones hernia
== END 2024-08-27 12:18 | disposition home or self-care (01) ==
LOC: HO.US 12:17
PROVIDERS: PCP Internal Medicine; Visit Provider Internal Medicine
DX: M79.661 Pain in right lower leg (principal); R60.0 Localized edema
CPT/HCPCS: 93971

== ENCOUNTER → 2024-08-27 12:19 | Outpatient (BNV) | payer MEDICARE, MEDICAID, SELFPAY | PROVIDERS: PCP Internal Medicine; Visit Provider Radiology Diagnostic Radiology | DX: M79.661 Pain in right lower leg (principal) | CPT/HCPCS: 93971 ==

== ENCOUNTER 2024-10-09 15:23 | Outpatient (AMB) | payer MEDICARE, MEDICAID, SELFPAY ==
--- NOTE | 2024-10-01 15:55 | MHC.PC.OV ---
Intake Visit Reasons: Routine Dr Sosa wants to see Patient in September Panama Hat Smearer Required: No Accompanied by: Self / Same As Patient Allergies No Known Allergies [No Known Allergies*] Allergy (Verified 08/20/24 10:18) Tobacco use date assessed: 10/02/24 Fall risk assessment: No Falls in past year Last assessed Fall Risk: 10/02/24 Dental Screening Dental Screen Date: 10/02/24 Did you have a dental visit in the last 12 months?: Yes Did you have a dental problem in the last 6 months where you did not have access to dental care?: No PFSH Medical History (Updated 08/20/24 @ 12:18 by Kelsie Gallo MD) Edema Wears partial dentures HTN (hypertension) Retained ureteral stent Ureteral stone with hydronephrosis Primary osteoarthritis of right knee Primary osteoarthritis of left knee CAD (coronary artery disease) Hyperlipidemia Diabetes mellitus Hx of renal calculi Hx of opioid abuse Surgical History (Updated 09/13/24 @ 13:38 by Katharina Stafford) History of colonoscopy (~06/30/20) Hx of lithotripsy (04/10/24) S/P knee replacement Stented coronary artery Hx of total knee replacement Hx of hernia repair Hx of lithotripsy Hx of cystoscopy Family History Father No problems noted. Mother No problems noted. 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 1. Little interest or pleasure in doing things: not at all 2. Feeling down, depressed, or hopeless: not at all 3. Trouble falling or staying asleep, or sleeping too much: not at all 4. Feeling tired or having little energy: not at all 5. Poor appetite or overeating: not at all 6. Feeling bad about yourself - or that you are a failure or have let yourself or your family down: not at all 7. Trouble concentrating on things, such as reading the newspaper or watching television: not at all 8. Moving or speaking so slowly that other people could have noticed. Or the opposite - being so fidgety or restless that you have been moving around a lot more than usual: not at all 9. Thoughts that you would be better off or of hurting yourself in some way: not at all Total score: 0 Source: Developed by Drs. Keegan Edwards, Jane Sandoval, Merritt Felix and colleagues, with an educational sahil from [employer]. Thrive Questionnaire Date Thrive assessed: 10/02/24 I am a: Patient Within the past 12 months, did the food you bought not last and you didn't have the money to get more?: Never true Within the past 12 months, did you worry whether your food would run out before you got money to buy more?: Never true Do you have trouble paying for medicines?: No Do you have trouble getting transportation to medical appointments?: No Do you have trouble paying your heating and electricity bill?: No Do you have trouble taking care of your child, family member or friend?: No Do you have trouble with day-to-day activities such as bathing, preparing meals, shopping, managing finances, etc.?: No Are you currently unemployed and looking for a job?: No Are you interested in more education?: No THRIVE Score: 0 AUDIT C Alcohol Use Questionnaire (AUDIT-C) 1. How often do you have a drink containing alcohol?: Never 3. How often do you have six or more drinks on one occasion?: Never Total Score: 0 FATUMA-7 AMB Questionnaire FATUMA-7 Date FATUMA - 7 assessed: 10/02/24 Feeling nervous, anxious, or on edge: 0 = Not at all Not being able to stop or control worryin = Not at all Worrying too much about different things: 0 = Not at all Trouble relaxin = Not at all Being so restless that it is hard to sit still: 0 = Not at all Becoming easily annoyed or irritable: 0 = Not at all Feeling afraid as if something awful might happen: 0 = Not at all Total FATUMA-7 score (0-4 normal; 5-9 mild; 10-14 moderate; 15-21 severe): 0 Source: Developed by Drs. Keegan Edwards, Jane Sandoval, Merritt Felix and colleagues, with an educational sahil from [employer]. Physical exam (Primary Care) Tobacco/Smoking Status: Tobacco use Status Tobacco use date assessed 08/14/24 08/14/24 15:50 Patient Tobacco Use Status Former Tobacco user 08/14/24 16:00 Tobacco use type Cigarette 08/14/24 16:00 Thrive Assessment: Date of Thrive Assessment Date Thrive assessed 08/14/24 08/14/24 15:50 Coding
[2024-10-09 14:23] VITALS: BP 130/80; PULSE 68; TEMP 36.2; O2SAT 98; BMI 29.4
--- NOTE | 2024-10-09 14:23 | A.OFFPC_ITS ---
Vital Signs 10/09/24 14:23 Height 6 ft Weight 217 lb BMI 29.4 BP 130/80 Blood Pressure Location Lt brachial Position Sitting Pulse 68 Pulse Source Pulse Oximeter Temp 97.1 F Temp Source Axillary Pulse Oximetry (%) 98 Oxygen Delivery Method Room Air Intake Visit Reasons: Routine Dr Sosa wants to see Patient in September Avian Keeper Required: No Accompanied by: Self / Same As Patient Allergies No Known Allergies [No Known Allergies*] Allergy (Verified 10/09/24 14:24) Tobacco use date assessed: 10/09/24 Fall risk assessment: No Falls in past year Last assessed Fall Risk: 10/09/24 Dental Screening Dental Screen Date: 10/09/24 Did you have a dental visit in the last 12 months?: Yes Did you have a dental problem in the last 6 months where you did not have access to dental care?: No PFSH Medical History Edema Wears partial dentures HTN (hypertension) Retained ureteral stent Ureteral stone with hydronephrosis Primary osteoarthritis of right knee Primary osteoarthritis of left knee CAD (coronary artery disease) Hyperlipidemia Diabetes mellitus Hx of renal calculi Hx of opioid abuse Surgical History History of colonoscopy (~06/30/20) Hx of lithotripsy (04/10/24) S/P knee replacement Stented coronary artery Hx of total knee replacement Hx of hernia repair Hx of lithotripsy Hx of cystoscopy Family History (Updated 10/09/24 @ 15:49 by Melly Painting MA) Father No problems noted. Mother No problems noted. Social History Household Members: Significant Other House[facility] Members Other:: [facility] Housing: House Are you a primary behavioral health care coordinator to a significant other at home: Yes (SO) Do you presently have visiting nurse or other home services: No Alcohol intake: current Alcohol intake frequency: does not drink Patient Tobacco Use Status: Former Tobacco user Tobacco use type: Cigarette Years Smoked: many e-Cigarette/Vaping Use: Former Use Substance Use Type: Opiates service: No Current occupational status: employed and retired 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 1. Little interest or pleasure in doing things: not at all 2. Feeling down, depressed, or hopeless: not at all 3. Trouble falling or staying asleep, or sleeping too much: not at all 4. Feeling tired or having little energy: not at all 5. Poor appetite or overeating: not at all 6. Feeling bad about yourself - or that you are a failure or have let yourself or your family down: not at all 7. Trouble concentrating on things, such as reading the newspaper or watching television: not at all 8. Moving or speaking so slowly that other people could have noticed. Or the opposite - being so fidgety or restless that you have been moving around a lot more than usual: not at all 9. Thoughts that you would be better off or of hurting yourself in some way: not at all Total score: 0 Source: Developed by Drs. Keegan Edwards, Jane Sandoval, Merritt Felix and colleagues, with an educational sahil from [employer]. Thrive Questionnaire Date Thrive assessed: 10/09/24 I am a: Patient Within the past 12 months, did the food you bought not last and you didn't have the money to get more?: Never true Do you have trouble paying for medicines?: No Do you have trouble getting transportation to medical appointments?: No Do you have trouble paying your heating and electricity bill?: No Do you have trouble taking care of your child, family member or friend?: No Do you have trouble with day-to-day activities such as bathing, preparing meals, shopping, managing finances, etc.?: No Are you currently unemployed and looking for a job?: No Are you interested in more education?: No THRIVE Score: 0 AUDIT C Alcohol Use Questionnaire (AUDIT-C) 1. How often do you have a drink containing alcohol?: Never 3. How often do you have six or more drinks on one occasion?: Never Total Score: 0 FATUMA-7 AMB Questionnaire FATUMA-7 Date FATUMA - 7 assessed: 10/09/24 Feeling nervous, anxious, or on edge: 0 = Not at all Not being able to stop or control worryin = Not at all Worrying too much about different things: 0 = Not at all Trouble relaxin = Not at all Being so restless that it is hard to sit still: 0 = Not at all Becoming easily annoyed or irritable: 0 = Not at all Feeling afraid as if something awful might happen: 0 = Not at all Total FATUMA-7 score (0-4 normal; 5-9 mild; 10-14 moderate; 15-21 severe): 0 Source: Developed by Drs. Keegan Edwards, Jane Sandoval, Merritt Felix and colleagues, with an educational sahil from [employer]. Physical exam (Primary Care) Vital Signs: Last Vital Signs Temp 97.1 F 10/09/24 14:23 Pulse 68 10/09/24 14:23 BP 130/80 10/09/24 14:23 Pulse Ox 98 10/09/24 14:23 Oxygen Delivery Method Room Air 10/09/24 14:23 BMI result Body Mass Index 29.4 Tobacco/Smoking Status: Tobacco use Status Tobacco use date assessed 10/09/24 10/09/24 14:25 Patient Tobacco Use Status Former Tobacco user 10/09/24 14:25 Tobacco use type Cigarette 10/09/24 14:25 e-Cigarette/Vaping Use Former Use 10/09/24 14:25 PHQ-9: PHQ-9 Score PHQ-9: Total score 0 10/09/24 15:49 Thrive Assessment: Date of Thrive Assessment Date Thrive assessed 10/09/24 10/09/24 14:25 Coding Level of Care Code Est Pt Level 4 (54413) Complex EM visit Add On G2211 Diagnoses Diabetes mellitus E11.9 Diabetes mellitus type: type 2 Diabetes mellitus complication status: with hyperglycemia Assessment & Plan Assessment & Plan (1) Diabetes mellitus: Code(s): E11.9 - Type 2 diabetes mellitus without complications Category: Medical Qualifiers: Diabetes mellitus type: type 2 Diabetes mellitus complication status: with hyperglycemia Plan: History of Present Illness The patient is a 69-year-old male presenting for the management of Type 2 Diabetes Mellitus and leg swelling. He reports home monitoring of blood sugars revealing high values, frequently in the range of 180-190 mg/dL, occasionally peaking at 500 mg/dL. He currently uses a regimen of Lantus, with a recent increase in dosage to 20 units at night, glipizide, and metformin. The effectiveness of glipizide has waned, leading to consideration of alternative treatment options. For leg swelling, the patient has undergone comprehensive testing, including blood tests and an ultrasound to rule out thrombosis. Test results have been negative, with furosemide treatment continuing as directed. Social History - Employment status and socio-economic factors are not discussed. - No information on housing, education, or family status provided. - No details given on substance use, physical activity, or dietary habits. Review of Systems - Endocrine: Reports issues with blood sugar control. - Musculoskeletal: Reports leg swelling. Physical Exam General: Cooperative and healthy appearing Nutritional Appearance: Well nourished Orientation/consciousness: Patient oriented x3 Limitations: No limitations Head: Normal to inspection General: Appearance normal, both eyes and all related structures Neck: Normal visual inspection Chest: Normal palpation of entire chest wall Respiratory: Normal respiratory effort Neurology: Patient oriented x3 Results - Tests: Recent blood glucose levels consistently high, maximal values up to 500 mg/dL. - Ultrasound: Negative for clots. Plan 1. Type 2 Diabetes Mellitus - Adjust medications as per insurance and therapeutic response. - Utilize Insulin Glargine-YFGN for basal management and a short-acting insulin for meal-time glucose control. 2. Leg Swelling - Maintain diuretic therapy and monitor for any symptom changes. Discussion Notes During the consultation, we discussed the ineffectiveness of glipizide and the necessity to transition to a regimen involving Insulin Glargine-YFGN and short- acting insulin for better glycemic control. Insurance changes necessitated a switch from Lantus. The patient was counseled on the necessity to discontinue glipizide once the new insulin prescription is filled. Regarding the patient's leg swelling, I reviewed the negative results from diagnostic testing, recommending continued use of furosemide. Follow-up is scheduled in one month to reassess management efficacy and symptom control. I confirmed the patient?s understanding of medication adjustments, proper insulin administration timing relative to meals, and the circumstances to omit dosing if the timing exceeds one hour post-meal. Patient Instructions - Follow medication adjustments as instructed for diabetes management. - Take Insulin Glargine-YFGN at night and 10 units of meal insulin before eating. - Refill furosemide and continue usage as directed. - Monitor glucose levels and leg swelling, noting any significant changes. - Bring glucose meter to the next appointment for review. - Schedule a follow-up visit in one month as advised. Medications: New insulin regular human (Novolin R FlexPen) 10 units (0.1 mL) subcut BID 18 mL 1RF 90 days insulin glargine-yfgn 25 units (0.25 mL) subcut DAILY 22.5 mL 1RF 90 days Refilled furosemide 20 mg PO DAILY 30 tabs 0RF
--- OUTSIDE RECORDS SUMMARY | 2024-10-09 15:27 | XMS_ITS | Patient Health Record ---
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 Name Role Phone Quinten Pollock MD Primary [...] Problem Status W/U Status Risk Notes Problem [id number] Colon cancer screening (Z12.11) Active confirmed Problem [id number] longterm (current) use of non-steroidal anti-inflammatorie s (NSAID) (Z79.1) Active confirmed Problem [id number] Encounter for other preprocedural examination (Z01.818) Active confirmed Plan Of Treatment Future Test Test Name Order Date COLONOSCOPY 06/18/2020 Insurance Providers Payer Name Payer Address Payer Phone Subscriber Number Group Number Insured Name Patient Relationship to Insured Coverage Start Date Coverage End Date MEDICARE OF [place] [address] [place] [id number] PRASANNA JOHANSEN Self - patient is the insured MEDICAID OF [facility] [address] [place] [phone] [id number] PRASANNA JOHANSEN Self - patient is the insured Medical (General) History Medical History History ICD Code elevated blood sugar nephrolithiasis opioid dependence Surgical History Surgery Date(Month/Year) right knee replacement 2019 left knee replacement kidney stones hernia
== END 2024-10-09 16:09 | disposition home or self-care (01) ==
LOC: HO.HMCHD 15:24
PROVIDERS: PCP Internal Medicine; Visit Provider Internal Medicine
DX: E11.9 Type 2 diabetes mellitus without complications (principal)

== ENCOUNTER → 2024-10-09 15:23 | Outpatient (BNVA) | payer MEDICARE, MEDICAID, SELFPAY | PROVIDERS: PCP Internal Medicine; Visit Provider Internal Medicine | DX: E11.9 Type 2 diabetes mellitus without complications (principal) | CPT/HCPCS: 99212 ==

== ENCOUNTER 2024-11-06 15:17 | Outpatient (REF) | payer MEDICARE, MEDICAID, SELFPAY ==
[2024-11-06 16:48] LABS: Estimated Average Glucose 186 mg/dL; Hemoglobin A1C 222.7942 umol/L; Hemoglobin A1c % 8.1 % (<6.0); Total Hemoglobin (HGBA1C) 3401.5938 umol/L
[2024-11-06 17:13] LABS: Anion Gap 12 (12-20); Blood Urea Nitrogen 15 mg/dL (9-16); Calcium 9.7 mg/dL (8.4-10.2); Carbon Dioxide 29 mmol/L (22-29); Chloride 103 mmol/L (96-108); Estimated Glomerular Filt Rate > 60; Glucose Random 171 mg/dL (60-115); Potassium 4.6 mmol/L (3.3-5.1); Sodium 139 mmol/L (135-145)
[2024-11-06 17:35] LABS: Prostate Specific Antigen 1.01 ng/mL (<0.05-4.0)
== END 2024-11-06 15:18 | disposition home or self-care (01) ==
LOC: HO.LAB 15:17
PROVIDERS: PCP Internal Medicine; Visit Provider Physician Assistant
DX: E11.9 Type 2 diabetes mellitus without complications (principal); I10 Essential (primary) hypertension; F11.90 Opioid use, unspecified, uncomplicated; I25.10 Atherosclerotic heart disease of native coronary artery without angina pectoris; E78.5 Hyperlipidemia, unspecified; E87.5 Hyperkalemia; Z79.4 Long term (current) use of insulin; Z79.84 Long term (current) use of oral hypoglycemic drugs; Z79.899 Other long term (current) drug therapy; Z12.5 Encounter for screening for malignant neoplasm of prostate
CPT/HCPCS: 36415; 80048; 83036; 84153; 99212

== ENCOUNTER 2024-11-06 15:17 | Outpatient (AMB) | payer MEDICARE, MEDICAID, SELFPAY ==
--- NOTE | 2024-11-06 15:18 | A.OFFPC_ITS ---
Vital Signs 11/06/24 15:28 11/06/24 15:54 Height 6 ft Weight 96.615 kg BMI 28.9 BP 142/84 H 126/78 Respiration 16 Pulse 59 Pulse Source Pulse Oximeter Temp 97.4 F Temp Source Temporal Artery Scan Pulse Oximetry (%) 98 Oxygen Delivery Method Room Air Intake Visit Reasons: 1 Month F/U Advice Line Rn Required: No Accompanied by: Self / Same As Patient Allergies No Known Allergies (No Known Allergies*) Allergy (Verified 11/06/24 15:19) Medication List - Last Reconciled 11/06/24 by CHITRA Donato allopurinol 100 mg PO DAILY 90 days aspirin 81 mg PO DAILY 90 days atorvastatin 40 mg PO DAILY blood sugar diagnostic (FreeStyle Lite Strips) As directed checks 1 X/day blood-glucose meter (FreeStyle Lite Meter kit) As directed for blood sugar checks 1 X/day buprenorphine-naloxone 8-2 mg (Suboxone) 2 strips sublingual DAILY ezetimibe 10 mg PO DAILY fluoxetine 40 mg PO DAILY furosemide 20 mg PO DAILY glipizide 5 mg PO BID insulin glargine-yfgn 25 units (0.25 mL) subcut DAILY 90 days insulin regular human (Novolin R FlexPen) 10 units (0.1 mL) subcut BID 90 days metformin ER 1,000 mg PO BID metoprolol succinate ER 25 mg PO DAILY 90 days pyridoxine (vitamin B6) 50 mg PO DAILY Tobacco use date assessed: 10/09/24 Dental Screening Dental Screen Date: 10/09/24 HPI HPI Comments History of Present Illness Details 69-year-old male with history of type 2 diabetes, hypertension, hyperlipidemia, opiate use disorder, alcohol use disorder in remission presents to the office today for follow-up. Type 2 diabetes-last hemoglobin A1c 7.0% >1 year ago. Had previously been on 25 units of Lantus as well as 20 units of Novolin twice daily. However, he has bee n working hard at lifestyle modification including intermittent fasting, smaller portions with decreased carbohydrate intake. He states he has been doing a lot of reading on diabetes management. His glucose levels had been following lower than 100 and he was becoming symptomatic so he has pulled back on his insulin. He states he is taking 10 units of Lantus every other night and has lowered his Novolin to 10 units twice daily. He has also increased exercise and has lost a total of 10 lb over last 3 months. He is also taking metformin and glipizide as prescribed Hypertension. Initial blood pressure elevated at 142/84 and on recheck 126/78. Compliant with metoprolol, Lasix. OUD- follows with clean slate, on suboxone. Last illicit (pills) 4-5 years ago Health maintenance: Last colonoscopy 2020 with 10 year follow-up advised Due for PSA ROS: General: No fevers, malaise, unintentional weight loss HEENT: No blurred vision, diplopia. No sore throat, nasal congestion, rhinorrhea, sinus pain, ear pain Cardiovascular: No chest pain, palpitations, or leg edema Respiratory: No shortness of breath, wheezing, cough MSK: No myalgia, back pain Neuro: No headaches, weakness, paresthesias Skin: No rashes or lesions EXAM: Constitutional - Awake and Alert, No apparent distress Eyes - PERRL Cardiovascular - S1S2, RRR, No edema Respiratory - Normal lung expansion, Normal respiratory effort, No respiratory distress, CTA bilaterally Extremities - no calf tenderness bilaterally, no swelling Skin - Warm/Dry Neurological - Alert & oriented x3 Psychological - Appropriate affect [facility] Medical History Edema Wears partial dentures HTN (hypertension) Retained ureteral stent Ureteral stone with hydronephrosis Primary osteoarthritis of right knee Primary osteoarthritis of left knee CAD (coronary artery disease) Hyperlipidemia Diabetes mellitus Hx of renal calculi Hx of opioid abuse Surgical History History of colonoscopy (~06/30/20) Hx of lithotripsy (04/10/24) S/P knee replacement Stented coronary artery Hx of total knee replacement Hx of hernia repair Hx of lithotripsy Hx of cystoscopy Family History (Updated 10/09/24 @ 15:49 by Melly Painting MA) Father No problems noted. Mother No problems noted. 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 Keegan Edwards, Jane Sandoval, Merritt Felix and colleagues, with an educational sahil from [employer]. Physical exam (Primary Care) Vital Signs: Last Vital Signs Temp 97.4 F 11/06/24 15:28 Pulse 59 11/06/24 15:28 Resp 16 11/06/24 15:28 BP 126/78 11/06/24 15:54 Pulse Ox 98 11/06/24 15:28 Oxygen Delivery Method Room Air 11/06/24 15:28 BMI result Body Mass Index 28.9 Tobacco/Smoking Status: Tobacco use Status Tobacco use date assessed 10/09/24 11/06/24 15:20 Patient Tobacco Use Status Former Tobacco user 11/06/24 15:20 Tobacco use type Cigarette 11/06/24 15:20 e-Cigarette/Vaping Use Former Use 11/06/24 15:20 Thrive Assessment: Date of Thrive Assessment Date Thrive assessed 10/09/24 11/06/24 15:20 Coding Level of Care Code Est Pt Level 4 (62377) Complex EM visit Add On G2211 Diagnoses Diabetes mellitus E11.9 Diabetes mellitus type: type 2 Diabetes mellitus complication status: with hyperglycemia HTN (hypertension) I10 Opioid use disorder F11.90 Assessment & Plan Assessment & Plan (1) Diabetes mellitus: Code(s): E11.9 - Type 2 diabetes mellitus without complications Category: Medical Qualifiers: Diabetes mellitus type: type 2 Diabetes mellitus complication status: with hyperglycemia Plan: Hemoglobin A1c ordered. Continue monitoring glucose levels both fasting and 2 hours following meal. Can continue with reduced doses of Lantus and Novolin and can continue metformin and glipizide. Therapies may be further adjusted pending results of hemoglobin A1c to prevent hypoglycemia. Continue with compliance with diabetic diet. Continue with weight loss efforts, commended on success thus far (2) HTN (hypertension): Code(s): I10 - Essential (primary) hypertension Category: Medical Plan: Controlled on recheck. Continue metoprolol, Lasix. Will recheck renal function and electrolyte levels as potassium levels have been borderline high. Denies taking any potassium supplements (3) Opioid use disorder: Code(s): F11.90 - Opioid use, unspecified, uncomplicated Category: Medical Plan: Stable. Continue following with clean slight and take Suboxone as prescribed. Plan Follow-up in the office in 4 months. Labs to be completed following visit today as well as several days prior to next visit. Orders: Orders Basic Metabolic Panel 4 Months E11.9 - Type 2 diabetes mellitus without complications, E78.5 - Hyperlipidemia, unspecified, I10 - Essential (primary) hypertension, I25.10 - Atherosclerotic heart disease of [place] coronary artery without angina pectoris Hemoglobin A1c Today E11.9 - Type 2 diabetes mellitus without complications, E78.5 - Hyperlipidemia, unspecified, I10 - Essential (primary) hypertension, I25.10 - Atherosclerotic heart disease of [place] coronary artery without angina pectoris Liver Panel 4 Months E11.9 - Type 2 diabetes mellitus without complications, E78.5 - Hyperlipidemia, unspecified, I10 - Essential (primary) hypertension, I25.10 - Atherosclerotic heart disease of [place] coronary artery without angina pectoris Basic Metabolic Panel Today E87.5 - Hyperkalemia, I10 - Essential (primary) hypertension Lipid Panel 4 Months E11.9 - Type 2 diabetes mellitus without complications, E78.5 - Hyperlipidemia, unspecified, I10 - Essential (primary) hypertension, I25.10 - Atherosclerotic heart disease of [place] coronary artery without angina pectoris Prostate Specific Antigen Today Z12.5 - Encounter for screening for malignant neoplasm of prostate Medications: Discontinued potassium citrate ER Discontinued Reason: Doctor's Order 20 mEq (2 x 10 mEq (1,080 mg)) PO BID 90 days 360 tabs 1RF N20.0 - Calculus of kidney
[2024-11-06 15:28] VITALS: BP 142/84; PULSE 59; RESP 16; TEMP 36.3; O2SAT 98; BMI 28.9
[2024-11-06 15:54] VITALS: BP 126/78
--- OUTSIDE RECORDS SUMMARY | 2024-11-06 17:35 | XMS_ITS | Patient Health Record ---
Author Organization [facility] Address [address] [place] [address] Care Team Providers Care International Marketing Coordinator Name Role Phone Quinten Pollock MD Primary Care Provider UnavailMani Lowery Jr Unavailable [phone] Reason For Referral No Information Medications [...] Problem Status W/U Status Risk Notes Problem [id number] Colon cancer screening (Z12.11) Active confirmed Problem [id number] FPC (current) use of non-steroidal anti-inflammatorie s (NSAID) (Z79.1) Active confirmed Problem 267447455 Encounter for other preprocedural examination (Z01.818) Active confirmed Plan Of Treatment Future Test Test Name Order Date COLONOSCOPY 06/18/2020 Insurance Providers Payer Name Payer Address Payer Phone Subscriber Number Group Number Insured Name Patient Relationship to Insured Coverage Start Date Coverage End Date MEDICARE OF [place] [address] [place] [id number] PRASANNA JOHANSEN Self - patient is the insured MEDICAID OF [facility] [address] [place] [address] [id number] PRASANNA JOHANSEN Self - patient is the insured Medical (General) History Medical History History ICD Code elevated blood sugar nephrolithiasis opioid dependence Surgical History Surgery Date(Month/Year) right knee replacement 2019 left knee replacement kidney stones hernia
== END 2024-11-06 15:51 | disposition home or self-care (01) ==
LOC: HO.HMCHD 15:18
PROVIDERS: PCP Internal Medicine; Visit Provider Physician Assistant
DX: E11.9 Type 2 diabetes mellitus without complications (principal); I10 Essential (primary) hypertension; F11.90 Opioid use, unspecified, uncomplicated

== ENCOUNTER 2024-12-05 13:23 | Outpatient (AMB) | payer MEDICARE, MEDICAID, SELFPAY ==
[2024-12-05 13:27] VITALS: BP 120/70; PULSE 65; BMI 28.4
--- NOTE | 2024-12-05 13:27 | MHC.OFFVIS ---
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 Required: No Allergies No Known Allergies (No Known Allergies*) Allergy (Verified 11/06/24 15:19) Medication List - Last Reconciled 12/05/24 by Jassi Warren MD allopurinol 100 mg PO DAILY 90 days aspirin 81 mg PO DAILY 90 days atorvastatin 40 mg PO DAILY blood sugar diagnostic (FreeStyle Lite Strips) As directed checks 1 X/day blood-glucose meter (FreeStyle Lite Meter kit) As directed for blood sugar checks 1 X/day buprenorphine-naloxone 8-2 mg (Suboxone) 2 strips sublingual DAILY ezetimibe 10 mg PO DAILY fluoxetine 40 mg PO DAILY furosemide 20 mg PO DAILY insulin glargine-yfgn 25 units (0.25 mL) subcut DAILY 90 days insulin regular human (Novolin R FlexPen) 10 units (0.1 mL) subcut BID 90 days metformin ER 1,000 mg PO BID metoprolol succinate ER 25 mg PO DAILY 90 days pyridoxine (vitamin B6) 50 mg PO DAILY HPI Comments Details: Abhay comes for follow-up. He does not have any significant cardiac symptoms. He says with his regular physical activity he does no chest pain or tightness or pressure. He does have couple of episodes of sharp pinpoint chest pain in the left infraclavicular area which was not associated with exertion. Symptoms subsided after massaging the area. He has been taking all his medications. He has no symptoms of shortness of breath, orthopnea, PND. No lightheadedness, syncope. His last LDL was optimized at 63 mg/dL. He said his main current issue is significant nephrolithiasis [facility] Medical History Edema Wears partial dentures HTN (hypertension) Retained ureteral stent Ureteral stone with hydronephrosis Primary osteoarthritis of right knee Primary osteoarthritis of left knee CAD (coronary artery disease) Hyperlipidemia Diabetes mellitus Hx of renal calculi Hx of opioid abuse Surgical History History of colonoscopy (~06/30/20) Hx of lithotripsy (04/10/24) S/P knee replacement Stented coronary artery Hx of total knee replacement Hx of hernia repair Hx of lithotripsy Hx of cystoscopy Family History Father No problems noted. Mother No problems noted. 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 Cognitive needs: No Hearing needs: No Vision needs: Yes (reading glasses) Review of Systems Const Denies chills, Denies fatigue, Denies fever(s), Denies frequent falls, Denies weakness, Denies weight gain and Denies weight loss ENT Denies dizziness Card Denies chest pain, Denies leg edema, Denies lightheadedness, Denies palpitations, Denies dyspnea, Denies dyspnea on exertion, Denies orthopnea and Denies other (loss of consciousness) Resp Denies cough, Denies dyspnea and Denies dyspnea on exertion GI Denies hematochezia and Denies change in stool character Musc Denies abnormal gait, Denies muscle weakness, Denies numbness, Denies radiating pain into limb and Denies tingling Neuro Denies abnormal gait, Denies dizziness, Denies frequent falls, Denies numbness, Denies tingling and Denies weakness Endo Denies fatigue and Denies palpitations Physical Exam Vital Signs: Last Vital Signs Pulse 65 12/05/24 13:27 BP 120/70 12/05/24 13:27 BMI result Body Mass Index 28.4 Const General: cooperative, comfortable, no acute distress, alert and awake Nutritional Appearance: obese Orientation/consciousness: patient oriented x3 Limitations: no limitations Neck Neck: Yes trachea midline, Yes supple and Yes no JVD Resp Effort & Inspection: normal respiratory effort Auscultation: clear to auscultation bilaterally and diminished lung sounds Cardio Jugular venous distension: no JVD Palpation: normal PMI Rate: regular rate Rhythm: regular rhythm Heart sounds: S1 normal heart sound present, S2 normal heart sound present, no click, no gallops, no murmurs and no rubs GI Auscultation: normal bowel sounds Skin General skin exam: no rashes or lesions noted Neuro General: patient oriented x3 and no focal motor deficits Extrem General: Yes no clubbing, cyanosis or edema Office Procedures EKG Details: EKG shows normal sinus rhythm with minimal voltage criteria for LVH [id number], Complete Assessment & Plan Assessment & Plan (1) CAD (coronary artery disease): Code(s): I25.10 - Atherosclerotic heart disease of [place] coronary artery without angina pectoris Category: Medical Plan: Coronary artery disease without prior stenting of LAD with atypical/noncardiac chest pain. He has no exertional symptoms. Recommend continued aggressive medical therapy. Lifelong aspirin therapy is advised. Continue high-intensity statin therapy with well optimized LDL at this point time. Continue aggressive blood pressure control. He had also pursuing aggressive lifestyle modification to control his diabetes better. Goal hemoglobin A1c less than 7%. (2) HTN (hypertension): Code(s): I10 - Essential (primary) hypertension Category: Medical Plan: Hypertension which is currently well optimized on current therapy. Importance of good blood pressure control was discussed. Target goal blood pressure less than 130/84. Low-salt diet was discussed. Encouraged to maintain activity level as tolerated. Will follow up in the clinic in 1 year's time, sooner p.r.n.. Thank you for allowing me to partake in his care Coding Level of Care Code Est Pt Level 4 (96913) Complex EM visit Add On G2211 Diagnoses CAD (coronary artery disease) I25.10 HTN (hypertension) I10 CPT Codes EKG - CPT: 17271-[id number], Complete ([id number])
== END 2024-12-05 13:52 | disposition home or self-care (01) ==
LOC: HO.HCS 13:24
PROVIDERS: PCP Internal Medicine; Visit Provider Internal Medicine Cardiovascular Disease
DX: I25.10 Atherosclerotic heart disease of native coronary artery without angina pectoris (principal); I10 Essential (primary) hypertension
CPT/HCPCS: 93010; 99214; G2211

== ENCOUNTER → 2024-12-05 13:23 | Outpatient (BNVA) | payer MEDICARE, MEDICAID, SELFPAY | PROVIDERS: PCP Internal Medicine; Visit Provider Internal Medicine Cardiovascular Disease | DX: I25.10 Atherosclerotic heart disease of native coronary artery without angina pectoris (principal); I10 Essential (primary) hypertension | CPT/HCPCS: 93005; 99212 ==

== ENCOUNTER 2025-02-10 07:32 | Outpatient (REF) | payer MEDICARE, MEDICAID, SELFPAY ==
--- NOTE | ~2025-02-10 | XR_ITS ---
EXAMINATION: XR ABDOMEN 1 VIEW (KUB) HISTORY: N20.0 - Calculus of kidney COMPARISON: Comparison is made with the prior examination dated 07/10/2024. FINDINGS: Two supine views of the abdomen are submitted. The bowel gas pattern is unremarkable, without evidence of mechanical obstruction. There is a 3 mm calcification overlying the right renal shadow. Multiple calcifications overlying the left renal shadow measuring up to 5 mm in size. The largest calcifications seen overlying the left renal shadow on the prior study is not identified. There are calcifications in the left hemipelvis which were not present on the prior study. These could be within the distal left ureter. There are no abnormal soft tissue masses. There is degenerative disc disease of the spine. XR/XR KUB IMPRESSION: Calcifications overlying the bilateral renal shadows as described. Possible distal left ureteral calculi. This could be confirmed with unenhanced CT if indicated. Electronically signed by: Keegan Tang MD 02/10/2025 07:59 AM EDT
== END 2025-02-10 07:33 | disposition home or self-care (01) ==
LOC: HO.XRAY 07:32
PROVIDERS: Visit Provider Urology
DX: N20.0 Calculus of kidney (principal)
CPT/HCPCS: 74018

== ENCOUNTER → 2025-02-10 07:36 | Outpatient (BNV) | payer MEDICARE, MEDICAID, SELFPAY | PROVIDERS: Visit Provider Radiology Diagnostic Radiology | DX: N20.1 Calculus of ureter (principal) | CPT/HCPCS: 74018 ==

== ENCOUNTER 2025-02-18 12:49 | Outpatient (AMB) | payer MEDICARE, MEDICAID, SELFPAY ==
--- NOTE | 2025-02-18 12:57 | MHC.OFFVIS ---
Intake Visit Reasons: 6m/KUB Intake Note: Patient is present for 6 mo follow up Urology Medication:POPTASSIUM,VITAMIN B 6,ALLOPURINOL Antibiotic Allergy:NONE Blood Thinner:ASPIRIN Imaging : KUB 02/10/25 Client Experience Manager Required: No Accompanied by: Self / Same As Patient Allergies No Known Allergies (No Known Allergies*) Allergy (Verified 02/18/25 12:57) HPI Comments Details: Abhay is a pleasant male. He is a patient of Dr. Pollock. He is seen for the following urologic conditions. - nephrolithiasis Six-month follow-up from bilateral ESWL KUB with small fragments Continue with vitamin B6 and allopurinol Nephrolithiasis Longstanding - Prior intervention for distal ureteric stone Current therapy includes vitamin B6 and potassium citrate Imaging - 01/09 renal ultrasound bilateral 5 mm stones - 08/10 renal ultrasound bilateral small stones - 02/10 renal ultrasound bilateral mm stones - 02/11 renal ultrasound bilateral 5 mm stones - 08/12 renal ultrasound bilateral 4 mm stones - 02/12 renal ultrasound right side 9, 7 - left side 7 mm - 05/14 renal ultrasound right side 4 mm, left side 7 mm - 08/13 renal ultrasound multiple small stones bilateral Stone composition - 08/12 calcium oxalate monohydrate Intervention - 04/14 R ESWL 24 hour urine - good volume, high oxalate, high citrate, high sodium Concurrent diagnoses diabetes uncontrolled Continue surveillance imaging [facility] Medical History Edema Wears partial dentures HTN (hypertension) Retained ureteral stent Ureteral stone with hydronephrosis Primary osteoarthritis of right knee Primary osteoarthritis of left knee CAD (coronary artery disease) Hyperlipidemia Diabetes mellitus Hx of renal calculi Hx of opioid abuse Surgical History History of colonoscopy (~06/30/20) Hx of lithotripsy (04/10/24) S/P knee replacement Stented coronary artery Hx of total knee replacement Hx of hernia repair Hx of lithotripsy Hx of cystoscopy Family History Father No problems noted. Mother No problems noted. 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 Cognitive needs: No Hearing needs: No Vision needs: Yes (reading glasses) Review of Systems Const Denies chills and Denies fever(s) Card Reports no additional complaints and Denies syncope Resp Denies cough GI Denies abdominal pain and Denies heartburn Reports as per HPI and Denies change in libido Neuro Denies syncope Psych Denies change in libido Endo Denies change in libido Physical Exam Const General: cooperative, healthy appearing, comfortable and no acute distress Orientation/consciousness: patient oriented x3 HEENT Face and sinus: Yes normal facial exam Mouth: moist mucous membranes Neck Neck: Yes normal visual inspection, Yes full ROM and Yes trachea midline Chest Chest palpation & inspection: normal inspection of the chest Resp Effort & Inspection: normal respiratory effort, able to speak in complete sentences and no respiratory distress GI Inspection: Yes normal to inspection Back/Spine/Pelvis Cervical Spine: normal cervical lordosis Thoracic/Lumbar Spine: thoracic and lumbar spine normal to inspection Skin General skin exam: no rashes or lesions noted Neuro General: patient oriented x3, gait normal, tone normal and moves all extremities Extrem General: Yes normal to inspection and Yes capillary refill normal Assessment & Plan Assessment & Plan (1) Nephrolithiasis: Code(s): N20.0 - Calculus of kidney Category: Medical Plan Six-month follow-up KUB Orders: Orders XR KUB 6 Months N20.0 - Calculus of kidney Patient Instructions: This note is constructed using voice recognition software. While every effort has been made to ensure accuracy banana room cutter errors may have been included. Imaging studies, laboratory and physical exam results were discussed and reviewed in detail. No major barriers to patient understanding were identified. An opportunity to ask questions regarding the treatment plan was provided. All questions were answered. The patient expressed understanding and agreement with the above treatment plan. The patient is aware they should contact our office by phone for worsening of their current condition or the appearance of new urologic symptoms. Compliance is encouraged with any medications and followup testing that is ordered. It is a privilege to participate in the urologic care of your patient. If you have any questions or concerns regarding treatment for the above conditions, or other urologic issues, please do not hesitate to contact me. The office telephone contact is [phone]. Sincerely, Dr Joesph Subramanian MD, [facility] - Urology Compassionate Specialist Care for the Genitourinary System Coding Level of Care Code Est Pt Level 3 (70432) Complex EM visit Add On G2211 Diagnoses Nephrolithiasis N20.0
--- OUTSIDE RECORDS SUMMARY | 2025-02-18 13:56 | XMS_ITS | Patient Health Record ---
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) use of non-steroidal anti-inflammatorie s (NSAID) (Z79.1) Active confirmed Problem [id number] Encounter for other preprocedural examination (Z01.818) Active confirmed Plan Of Treatment Future Test Test Name Order Date COLONOSCOPY 06/18/2020 Insurance Providers Payer Name Payer Address Payer Phone Subscriber Number Group Number Insured Name Patient Relationship to Insured Coverage Start Date Coverage End Date MEDICARE OF [place] [address] [place] [address] [id number] PRASANNA JOHANSEN Self - patient is the insured MEDICAID OF [facility] [address] [place] [address] [id number] PRASANNA JOHANSEN Self - patient is the insured Medical (General) History Medical History History ICD Code elevated blood sugar nephrolithiasis opioid dependence Surgical History Surgery Date(Month/Year) right knee replacement 2019 left knee replacement kidney stones hernia
== END 2025-02-18 13:39 | disposition home or self-care (01) ==
LOC: HO.HUSH 12:50
PROVIDERS: PCP Internal Medicine; Visit Provider Urology
DX: N20.0 Calculus of kidney (principal)
CPT/HCPCS: 99213; G2211

== ENCOUNTER → 2025-02-18 12:49 | Outpatient (BNVA) | payer MEDICARE, MEDICAID, SELFPAY | PROVIDERS: PCP Internal Medicine; Visit Provider Urology | DX: N20.0 Calculus of kidney (principal) | CPT/HCPCS: 99212 ==

== ENCOUNTER 2025-03-06 08:22 | Outpatient (REF) | payer MEDICARE, MEDICAID, SELFPAY ==
--- OUTSIDE RECORDS SUMMARY | 2025-03-06 08:37 | XMS_ITS | Patient Health Record ---
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 the day before the procedure; Duration: 1 day 06/18/2020 Active FLUoxetine HCl 20 MG TAKE 2 CAPSULES BY MOUTH EVERY DAY Oral; Duration: 30 Active metFORMIN HCl 500 MG TAKE 1 TABLET BY MO UTH EVERY DAY Oral; Duration: 30 Active Aleve 220 MG 1 tablet with food o r milk as needed Orally every 12 hrs Active Suboxone 8-2 MG (Schedule III Drug) DISSOLVE 2 FILMS UNDER THE TONGUE ONCE A DAY Sublingual; Duration: 7 Active Immunizations Vaccine Route Administration Date [...] Problem Status W/U Status Risk Notes Problem Colon cancer screening (093351743) Colon cancer screening (Z12.11) Active confirmed 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-inflammat ory drug (1233597420541 03) 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) use of non-steroidal anti-inflammatori es (NSAID) (Z79.1) Active confirmed Problem Pre-procedure evaluation check (071894681) Encounter for other preprocedural examination (Z01.818) Active confirmed Plan Of Treatment Future Test Test Name Order Date COLONOSCOPY 06/18/2020 Insurance Providers Payer Name Payer Address Payer Phone Subscriber Number Group Number Insured Name Patient Relationship to Insured Coverage Start Date Coverage End Date MED[place]ARE OF [place] [address] [place] [address] [id number] PRASANNA JOHANSEN Self - patient is the insured MEDICAID OF [facility] [address] [facility] [place] [place] [place] [place] [phone] [id number] PRASANNA JOHANSEN Self - patient is the insured Medical (General) History Medical History History ICD Code elevated blood sugar nephrolithiasis opioid dependence Surgical History Surgery Date(Month/Year) right knee replacement 2019 left knee replacement kidney stones hernia
[2025-03-06 11:24] LABS: Alanine Aminotransferase 30 U/L (0-40); Albumin Level 4.4 g/dL (3.5-5.0); Alkaline Phosphatase 58 U/L (39-117); Anion Gap 13 (12-20); Aspartate Amino Transferase 28 U/L (5-37); Blood Urea Nitrogen 21 mg/dL (9-16); Calcium 9.5 mg/dL (8.4-10.2); Carbon Dioxide 28 mmol/L (22-29); Chloride 105 mmol/L (96-108); Cholesterol 110 mg/dL (<200); Estimated Glomerular Filt Rate > 60; HDL Cholesterol 43 mg/dL (>40); Potassium 5.0 mmol/L (3.3-5.1); Sodium 141 mmol/L (135-145); Total Protein 7.1 g/dL (6.5-8.0); Triglycerides 76 mg/dL (<150)
== END 2025-03-06 08:23 | disposition home or self-care (01) ==
LOC: HO.LAB 08:22
PROVIDERS: PCP Physician Assistant; Visit Provider Physician Assistant
DX: I10 Essential (primary) hypertension (principal); I25.10 Atherosclerotic heart disease of native coronary artery without angina pectoris; E78.5 Hyperlipidemia, unspecified; E11.9 Type 2 diabetes mellitus without complications; Z13.6 Encounter for screening for cardiovascular disorders
CPT/HCPCS: 36415; 80048; 80061; 80076

== ENCOUNTER 2025-03-12 15:39 | Outpatient (AMB) | payer MEDICARE, MEDICAID, SELFPAY ==
--- NOTE | 2025-03-12 15:42 | A.OFFPC_ITS ---
Vital Signs 03/12/25 15:50 Height 5 ft 8.5 in Weight 97.069 kg BMI 32.1 BP 138/80 Blood Pressure Location Lt brachial Position Sitting Respiration 18 Pulse 90 Pulse Source Pulse Oximeter Temp 97.9 F Temp Source Temporal Artery Scan Pulse Oximetry (%) 94 Oxygen Delivery Method Room Air Intake Visit Reasons: 4 Month F/u Operational Risk Consultant Required: No Accompanied by: Self / Same As Patient Allergies No Known Allergies (No Known Allergies*) Allergy (Verified 03/12/25 15:42) Tobacco use date assessed: 10/09/24 Dental Screening Dental Screen Date: 10/09/24 HPI HPI Comments History of Present Illness Details 69-year-old male with history of type 2 diabetes, hypertension, hyperlipidemia, opiate use disorder, alcohol use disorder in remission presents to the office today for follow-up. Type 2 diabetes-last hemoglobin A1c 8.1 % at last visit. Historically, has played with dosing and discontinued medications on his own at times. Was counseled against this at last visit. He has resumed 20 units of Lantus daily but only takes Novolin intermittently, only 3 times since he was last seen. However, he has been working hard at lifestyle modification including intermittent fasting, smaller portions with decreased carbohydrate intake. He also tells me that he is not always compliant with this. Seems to be inconsistent with his reports. He states typically his glucose levels are around 100, highest around 230, typically around 190 randomly. He is also taking metformin but stopped glipizide. Hypertension-BP in the office today 138/80. On metoprolol 25 mg, furosemide 20 mg OUD- follows with clean slate, on suboxone. Last illicit (pills) 4-5 years ago Alcohol use disorder-history of gout-stable on allopurinol. No longer consuming CAD-following with [facility]. On ASA, atorvastatin, Toprol Health maintenance: Last colonoscopy 2020 with 10 year follow-up advised ROS: General: No fevers, malaise, unintentional weight loss HEENT: No blurred vision, diplopia. No sore throat, nasal congestion, rhinorrhea, sinus pain, ear pain Cardiovascular: No chest pain, palpitations, or leg edema Respiratory: No shortness of breath, wheezing, cough MSK: No myalgia, back pain Neuro: No headaches, weakness, paresthesias Skin: No rashes or lesions EXAM: Constitutional - Awake and Alert, No apparent distress Eyes - PERRL Cardiovascular - S1S2, RRR, No edema Respiratory - Normal lung expansion, Normal respiratory effort, No respiratory distress, CTA bilaterally Extremities - no calf tenderness bilaterally, no swelling Skin - Warm/Dry Neurological - Alert & oriented x3 Psychological - Appropriate affect [facility] Medical History Edema Wears partial dentures HTN (hypertension) Retained ureteral stent Ureteral stone with hydronephrosis Primary osteoarthritis of right knee Primary osteoarthritis of left knee CAD (coronary artery disease) Hyperlipidemia Diabetes mellitus Hx of renal calculi Hx of opioid abuse Surgical History History of colonoscopy (~06/30/20) Hx of lithotripsy (04/10/24) S/P knee replacement Stented coronary artery Hx of total knee replacement Hx of hernia repair Hx of lithotripsy Hx of cystoscopy Family History Father No problems noted. Mother No problems noted. 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 Keegan Edwards, Jane Sandoval, Merritt Felix and colleagues, with an educational sahil from [employer]. Physical exam (Primary Care) Vital Signs: Last Vital Signs Temp 97.9 F 03/12/25 15:50 Pulse 90 03/12/25 15:50 Resp 18 03/12/25 15:50 BP 138/80 03/12/25 15:50 Pulse Ox 94 03/12/25 15:50 Oxygen Delivery Method Room Air 03/12/25 15:50 BMI result Body Mass Index 32.1 Tobacco/Smoking Status: Tobacco use Status Tobacco use date assessed 10/09/24 03/12/25 15:44 Patient Tobacco Use Status Former Tobacco user 03/12/25 15:44 Tobacco use type Cigarette 03/12/25 15:44 e-Cigarette/Vaping Use Former Use 03/12/25 15:44 Thrive Assessment: Date of Thrive Assessment Date Thrive assessed 10/09/24 03/12/25 15:44 Coding Level of Care Code Est Pt Level 4 (17773) Complex EM visit Add On G2211 Diagnoses Diabetes mellitus E11.9 Diabetes mellitus type: type 2 Diabetes mellitus complication status: with hyperglycemia HTN (hypertension) I10 Opioid use disorder F11.90 Assessment & Plan Assessment & Plan (1) Diabetes mellitus: Code(s): E11.9 - Type 2 diabetes mellitus without complications Category: Medical Qualifiers: Diabetes mellitus type: type 2 Diabetes mellitus complication status: with hyperglycemia Plan: Uncontrolled. Hemoglobin A1c ordered. Continue monitoring glucose levels both fasting and 2 hours following meal. Counseled on compliance with medications as prescribed especially with prandial insulin. Continue Lantus 20 units daily and NovoLog as prescribed. Continue with metformin. Continue with compliance with diabetic diet. Continue with weight loss efforts, commended on success thus far (2) HTN (hypertension): Code(s): I10 - Essential (primary) hypertension Category: Medical Plan: Controlled. Continue metoprolol, Lasix. (3) Opioid use disorder: Code(s): F11.90 - Opioid use, unspecified, uncomplicated Category: Medical Plan: Stable. Continue following with clean slight and take Suboxone as prescribed. Plan Follow-up in the office in 3months. Labs to be completed following visit today as well as several days prior to next visit. Orders: Orders Hemoglobin A1c 03/12/25 E11.9 - Type 2 diabetes mellitus without complications Microalbumin, Random (w Creat) Today E11.9 - Type 2 diabetes mellitus without complications, F11.90 - Opioid use, unspecified, uncomplicated, I10 - Essential (primary) hypertension, I25.10 - Atherosclerotic heart disease of [place] coronary artery without angina pectoris Basic Metabolic Panel Today E11.9 - Type 2 diabetes mellitus without complications, F11.90 - Opioid use, unspecified, uncomplicated, I10 - Essential (primary) hypertension, I25.10 - Atherosclerotic heart disease of [place] coronary artery without angina pectoris Lipid Panel Today E11.9 - Type 2 diabetes mellitus without complications, F11.90 - Opioid use, unspecified, uncomplicated, I10 - Essential (primary) hypertension, I25.10 - Atherosclerotic heart disease of [place] coronary artery without angina pectoris Liver Panel Today E11.9 - Type 2 diabetes mellitus without complications, F11.90 - Opioid use, unspecified, uncomplicated, I10 - Essential (primary) hypertension, I25.10 - Atherosclerotic heart disease of [place] coronary artery without angina pectoris Hemoglobin A1c Today E11.9 - Type 2 diabetes mellitus without complications, F11.90 - Opioid use, unspecified, uncomplicated, I10 - Essential (primary) hypertension, I25.10 - Atherosclerotic heart disease of [place] coronary artery without angina pectoris
[2025-03-12 15:50] VITALS: BP 138/80; PULSE 90; RESP 18; TEMP 36.6; O2SAT 94; BMI 32.1
--- OUTSIDE RECORDS SUMMARY | 2025-03-12 21:48 | XMS_ITS | Patient Health Record ---
Author Organization 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) use of non-steroidal anti-inflammatori es (NSAID) (Z79.1) Active confirmed Problem Pre-procedure evaluation check (452486756) Encounter for other preprocedural examination (Z01.818) Active confirmed Plan Of Treatment Future Test Test Name Order Date COLONOSCOPY 06/18/2020 Insurance Providers Payer Name Payer Address Payer Phone Subscriber Number Group Number Insured Name Patient Relationship to Insured Coverage Start Date Coverage End Date MEDICARE OF [place] [address] [place] [id number] PRASANNA JOHANSEN Self - patient is the insured MEDICAID OF [facility] [address] [facility] [phone] [id number] PRASANNA JOHANSEN Self - patient is the insured Medical (General) History Medical History History ICD Code elevated blood sugar nephrolithiasis opioid dependence Surgical History Surgery Date(Month/Year) right knee replacement 2019 left knee replacement kidney stones hernia
== END 2025-03-12 16:41 | disposition home or self-care (01) ==
PROVIDERS: PCP Physician Assistant; Visit Provider Physician Assistant
DX: E11.9 Type 2 diabetes mellitus without complications (principal); I10 Essential (primary) hypertension; F11.90 Opioid use, unspecified, uncomplicated

== ENCOUNTER 2025-03-12 15:39 | Outpatient (REF) | payer MEDICARE, MEDICAID, SELFPAY | END 2025-03-12 15:40 | disposition home or self-care (01) | LOC: HO.LAB 15:39 | PROVIDERS: PCP Physician Assistant; Visit Provider Physician Assistant | DX: E11.9 Type 2 diabetes mellitus without complications (principal); I10 Essential (primary) hypertension; F11.90 Opioid use, unspecified, uncomplicated | CPT/HCPCS: 36415; 83036; 99212 ==